=== PATIENT | female | born 1960 | race African-American/Black ===

== ENCOUNTER 2017-02-04 11:07 | Inpatient (IN) | payer OTHER ==
--- NOTE | 2017-02-04 11:48 | PDOC ---
History of Present Illness - General Chief Complaint: Revisit,Radiology Variance Stated Complaint: EVALUATION, SOB (PCP SENT) Time Seen by Provider: 02/04/17 11:37 History Source: Patient Exam Limitations: No Limitations - History of Present Illness Initial Comments: 02/04/17 11:57 This is a 56-year-old female with past medical history of HIV positive, ESRD on dialysis Wednesday was Wednesday who presents to the emergency department with productive cough 4 days with one episode of posttussive vomiting. Patient states she started coughing on Wednesday, February 01 which has been productive with white sputum. She states symptoms have not improved and is convinced to seek out care of her primary doctor by her girlfriend. Patient denies any fevers but reports feeling "chilly" presently. Patient was evaluated by Dr. Sanchez earlier today with a chest x-ray positive for right middle and lower lobe pneumonia. She denies headaches, sore throat, earaches, chest pain, abdominal pain. Patient's last dialysis was yesterday and does not make any urine. PMD: Daniel PMH: HIV positive, ESRD on HD MWF PSH: Denies NKDA Tobacco: Quit 4 years ago [id number]. EtOH: Denies Illicits: Remote crack cocaine use Patient denies any travel outside [place] [facility] states or contacted and was travel outside the [place] within the past 30 days. Past History - Past Medical History Allergies/Adverse Reactions: Allergies Allergy/AdvReac Type Severity Reaction Status Date / Time No Known Drug Allergies Allergy Verified 02/04/17 11:19 Home Medications: Ambulatory Orders Methadone [Dolophine -] 80 mg PO DAILY 06/18/15 Sevelamer Carbonate [Renvela -] 800 mg PO TIDCM 06/18/15 Lopinavir/Ritonavir [Kaletra 200-50 mg Tablet] 2 each PO BID #120 tablet Abacavir Sulfate [Ziagen -] 300 mg PO BID #60 tablet 01/14/17 Losartan Potassium 50 mg PO DAILY #30 tablet 01/14/17 Raltegravir [Isentress] 400 mg PO BID #60 tab 01/14/17 Diltiazem HCl [Diltiazem 24Hr Cd] 120 mg PO DAILY #30 cap.er.24h 01/15/17 Oxycodone HCl/Acetaminophen [Percocet 10-325 mg Tablet] 1 each PO BID PRN #60 tablet MDD 2 01/18/17 Aripiprazole 2 mg PO AM #30 tablet 01/28/17 Clonazepam [Klonopin -] 0.5 mg PO HS PRN #30 tab MDD 1 01/28/17 Zolpidem Tartrate [Ambien] 5 mg PO HS #30 tablet MDD 1 01/28/17 Anemia: No Asthma: No Cancer: Yes (ANAL WARTS/EARLY CANCER-treated) Cardiac Disorders: No CVA: No COPD: No CHF: No Dementia: No Diabetes: No Dialysis: Yes (M-W-F) GI Disorders: No Disorders: No HTN: Yes Hypercholesterolemia: Yes Liver Disease: Yes (Hep C past 6 yrs - untreated) Psychiatric Problems: Yes (Anxiety) Seizures: No Thyroid Disease: No - Surgical History Abdominal Surgery: No Appendectomy: No Cardiac Surgery: No Cholecystectomy: No Lung Surgery: No Neurologic Surgery: No Orthopedic Surgery: No - Suicide/Smoking/Psychosocial Hx Smoking Status: Yes Smoking History: Former smoker Have you smoked in the past 12 months: No Number of Cigarettes Smoked Daily: 2,013 If you are a former smoker, when did you quit?: 2013 Cigars Per Day: 0 Information on smoking cessation initiated: No 'Breaking Loose' booklet given: 06/19/13 Hx Alcohol Use: No Drug/Substance Use Hx: Yes Substance Use Type: Cocaine, Heroin Hx Substance Use Treatment: Yes (hx detox, rehab, now [facility]) Respiratory Specific PMHX - Complaint Specific PMHX Pneumonia: No TB (Tuberculosis): No Review of Systems - Review of Systems Able to Perform ROS?: Yes Is the patient limited Ethiopian proficient: No Constitutional: Yes: See HPI HEENTM: No: Symptoms Reported Respiratory: Yes: See HPI Cardiac (ROS): No: Symptoms Reported ABD/GI: No: Symptoms Reported : No: Symptoms Reported Musculoskeletal: No: Symptoms Reported Integumentary: No: Symptoms Reported Neurological: No: Symptoms reported *Physical Exam - Vital Signs Last Vital Signs Temp Pulse Resp BP Pulse Ox 99.6 F 60 18 128/68 94 L 02/04/17 11:19 02/04/17 11:19 02/04/17 11:36 02/04/17 11:19 02/04/17 11:36 - Physical Exam General Appearance: Yes: Appropriately Dressed. No: Apparent Distress HEENT: positive: EOMI, ZAHRA, Normal ENT Inspection Neck: positive: Trachea midline, Supple. negative: Tender Respiratory/Chest: positive: Decreased Breath Sounds (right base). negative: Chest Tender, Respiratory Distress, Accessory Muscle Use, Crackles, Rales, Rhonchi, Wheezing Cardiovascular: positive: Regular Rhythm, Regular Rate, S1, S2. negative: Edema , JVD, Murmur Gastrointestinal/Abdominal: positive: Normal Bowel Sounds, Soft. negative: Tender Musculoskeletal: positive: Normal Inspection. negative: CVA Tenderness Extremity: positive: Normal Capillary Refill, Normal Inspection, Normal Range of Motion, Other (A-V fistula in LUE. (+)bruit, (+) thrill) Integumentary: positive: Normal Color, Dry, Warm Neurologic: positive: mdm developer II-XII NML intact, Fully Oriented, Alert, Normal Mood/ Affect, Normal Response, Motor Strength 5/5 Heart Score/ECG Review - ECG Intrepretation Rhythm: Regular Rhythm - ECG Impressions Normal ECG: Yes ED Treatment Course - LABORATORY CBC & Chemistry Diagram: 02/04/17 12:00 02/04/17 12:39 Medical Decision Making - Medical Decision Making 02/04/17 12:04 A/P: 56-year-old female HIV positive reports compliance with her medications, ESRD on HD sent by her primary doctor for right lower and middle lobe pneumonia. Lung sounds diminished on the right side. Respirations even and unlabored. Patient with O2 sat of 94% on room air upon arrival. RRR. No murmur, rub or gallop. Normoactive bowel sounds. Abdomen soft nontender nondistended. Diagnosis- right middle and lower lobe pneumonia Dr. Sanchez has contacted the emergency Department and requests admission to hospitalist. I will collect a CBC, CMP, blood cultures, sputum culture. I will give the patient 3.375 g of Zosyn IV and 500 mg of Zithromax IV. I'll put the patient on oxygen at 2 L via nasal cannula. Once testing returns I will admit the patient to hospitalist per request of primary doctor. EXAM#: TYPE/EXAM: RESULT: [id number] RAD/CHEST PA LAT History of cough Chest x- ray, PA and lateral Since 11/15/2015, the cardiac silhouette remains slightly to moderately enlarged. Interval interstitial and patchy airspace disease in the right lower anterolisthesis extent right midlung consistent with pneumonia. The left lung is clear. No pneumothorax or pleural effusion are identified. Visualized osseous structures appear intact IMPRESSION: Pneumonic infiltrates in the right lower atelectatic central right midlung. Follow-up is needed. Reported By: Zackary Paul MD 02/04/17 1031 02/04/17 13:44 Labs show hyponatremia-129, hyperkalemia 5.3, creatinine of 9, BUN of 46, WBC of 18.6. Will admit the patient to hospitalist to follow with Dr. Sanchez ID. 02/04/17 13:56 I have discussed the case with Cyndi Brown who accepted the patient for admission to hospitalist service *DC/Admit/Observation/Transfer Diagnosis at time of Disposition: Pneumonia Qualifiers: Pneumonia type: due to unspecified organism Laterality: right Lung location: lower lobe of lung Qualified Code(s): J18.1 - Lobar pneumonia, unspecified organism - Discharge Dispostion Condition at time of disposition: Guarded Admit: Yes - Referrals Referrals: Amaris Ruth [Primary Care Provider] - - Patient Instructions - Post Discharge Activity
[2017-02-04] MEDS ORDERED: ACETAMINOPHEN 325 MG TABLET (FP) PO ONE (11:49)
[2017-02-04] MEDS ORDERED: AZITHROMYCIN IVPB 500 MG in DEXTROSE 5%-WATER - 250 ML IVPB ONE (11:51)
[2017-02-04] MEDS ORDERED: PIPERACILLIN/TAZOB 3.375 GM/50 ML PRE-DOCKED IVPB ONE (12:00)
[2017-02-04] MEDS ORDERED: ACETAMINOPHEN 325 MG TABLET (FP) ONE (12:06)
[2017-02-04] MEDS ORDERED: PIPERACILLIN/TAZOB 3.375 GM 3.375 GM/50 ML BAG IVPB ONE (12:06)
[2017-02-04] MEDS ORDERED: AZITHROMYCIN IVPB 250 ML IVPB ONE (12:06)
[2017-02-04 12:42] LABS: MCHC 31.6 g/dl (32.0-36.0); MEAN CELL VOLUME 101.2 fl (80-96); MEAN PLT VOLUME 7.4 fl (7.5-11.1); PLATELET COUNT 171 K/MM3 (134-434); RDW 15.5 % (11.6-15.6); WHITE BLOOD COUNT 18.6 K/mm3 (4.0-10.0)
[2017-02-04 13:20] LABS: ANION GAP 16 (8-16); BILIRUBIN,TOTAL 3.1 mg/dL (0.2-1.0); CALCIUM 9.1 mg/dL (8.5-10.1); CO2 19 mmol/L (21-32); GLUCOSE,RANDOM 60 mg/dL (74-106); SGPT/ALT 14 U/L (12-78); TOT PROT 7.9 g/dl (6.4-8.2)
[2017-02-04 13:26] LABS: ALBUMIN 2.8 g/dl (3.4-5.0); ALK PHOS 96 U/L (45-117)
[2017-02-04 13:28] LABS: SGOT/AST 36 U/L (15-37)
[2017-02-04 14:18] LABS: TOTAL CELLS COUNTED 100
[2017-02-04 14:19] LABS: METAMYELOCYTE 2 % (0-2); PLATELET ESTIMATE ADEQUATE
--- NOTE | 2017-02-04 14:28 | HP ---
HISTORY OF PRESENT ILLNESS: Patient is a 56 year old female with a PMHx of HIV, Hepatitis C, ESRD on dialysis (M,W,F), HTN, substance abuse (Methadone) who was sent over by her PCP , Dr. Sanchez, for pneumonia finding on chest x-ray done today. Patient reports having a productive cough with yellow phlegm for the last four days associated with chills and fatigue. She reports her symptoms were worsening and she was finally convinced by her girlfriend to seek medical attention. When she went to her PCP a chest x-ray was done which revealed a right mid and lower lobe pneumonia. Patient also reports to having pain under her right breast that is worsened when she coughs and relates it to her constant coughing for the last four days. Otherwise, pateint denies any sore throat, chest pain, palpitations, shortness of breath, headaches, diarrhea, constipation, abdominal pain. Patients last CD4 count 338 on 08/27/16 and Viral load <20. PHYSICAL EXAMINATION Vital Signs - 24 hr 02/04/17 02/04/17 11:19 11:36 Temperature 99.6 F Pulse Rate 60 Respiratory 18 18 Rate Blood Pressure 128/68 O2 Sat by Pulse 94 L 94 L Oximetry (%) GENERAL: Awake, alert, and fully oriented, in no acute distress. EYES: Pupils equal, round and reactive to light, extraocular movements intact, sclera icterus EARS, NOSE, THROAT: Oropharynx clear without exudates. Moist mucous membranes. LUNGS: Rales throughout lung bases bilaterally with crackles in right lower lobe. HEART: Regular rate and rhythm, normal S1 and S2 without murmur, rub or gallop. ABDOMEN: Soft, mild tenderness upon palpation of right upper and right lateral chest, not distended, normoactive bowel sounds, no guarding, no rebound, no masses. (-) barkley's sign UPPER EXTREMITIES: Left AV Fistula with palpable thrill, (+) bruit LOWER EXTREMITIES: No peripheral edema. NEUROLOGICAL: Motor strength 5/5 bilaterally with sensory intact throughout. No facial droop. CN II-XII intact Laboratory Results - last 24 hr 02/04/17 02/04/17 02/04/17 12:00 12:39 12:39 WBC 18.6 H D RBC 3.41 L Hgb 10.9 Hct 34.5 MCV 101.2 H MCH 32.0 MCHC 31.6 L RDW 15.5 Plt Count 171 D MPV 7.4 L D Total Counted 100 Neutrophils % No Result Required. Neutrophils % (Manual) 64.0 D Lymphocytes % No Result Required. Lymphocytes % (Manual) 13.0 D Monocytes % (Manual) 20 H* D Eosinophils % (Manual) 1.0 Metamyelocytes 2 Platelet Estimate Adequate Sodium 129 L Potassium 5.3 H Chloride 94 L Carbon Dioxide 19 L D Anion Gap 16 BUN 46 H D Creatinine 9.0 H* Creat Clearance w eGFR 4.54 Random Glucose 60 L D Lactic Acid 0.9 Calcium 9.1 Total Bilirubin 3.1 H D AST 36 ALT 14 D Alkaline Phosphatase 96 D Total Protein 7.9 Albumin 2.8 L D IMAGES: Chest X-Ray (02/04/17): Since 11/15/2015, the cardiac silhouette remains slightly to moderately enlarged. Interval interstitial and patchy airspace disease in the right lower anterolisthesis extent right midlung consistent with pneumonia. The left lung is clear. No pneumothorax or pleural effusion are identified. Visualized osseous structures appear intact ASSESSMENT/PLAN: Patient is a 56 year old HIV positive female who was sent over by her PCP for a 4 day history of productive cough and a chest x-ray that revealed Pneumonia. Patient admitted for further monitoring and management. Health Care Acquired Pneumonia -WBC 18.6 with 02 saturation <95% -IV Zosyn and Azithromycin given in ED -Will continue to Zosyn and Vancomycin -Urine legionella ordered -Blood and sputum cultures ordered -Tylenol PRN for fevers -2L O2 NC -ID consult placed Hyponatremia -IV NS @75mlshr -Will continue to monitor BMP HyperKalemia -Secondary to ESRD -Will go for dialysis tomorrow -Will give albuterol, Insulin and D5 -Continue to monitor BMP HIV Positive-Controlled -Follows with [facility] -Currently on kaletra -Ladt CD4 was 338 on 08/27/16 and Viral load <20. -ID consult placed Chronic Hepatitis C -Follows up Dr. Moore. -Will confirm if on any medications Methadone Dependence -On a method Regimen but will confirm the dose and how many times HTN-Controlled -Continue Diltiazem 120mg daily -Continue to monitor BP ESRD on HD -Patient reports being Anuric -Follows with Dr. Bales -Last dialysis yesterday (02/03/17) -Will likely require dialysis tomorrow inpatient -Nephrology consult placed F/E/N -IV NS @75mls/hr -Hyponatremia/Hypokalemia -Sodium controlled diet Prophylaxis -Moderate risk. EAM. Heparin SQ for DVT. Unable to give Lovenox due to creatinine clearance -No GI required Disposition -Full code -Will need inpatient IV abx for pneumonia. Will likely remain overnight for inpatient Visit type - Emergency Visit Emergency Visit: Yes ED Registration Date: 02/04/17 Care time: The patient presented to the Emergency Department on the above date and was hospitalized for further evaluation of their emergent condition. - New Patient This patient is new to me today: Yes Date on this admission: 02/04/17 - Critical Care Critical Care patient: No
[2017-02-04] MEDS ORDERED: ACETAMINOPHEN 325 MG TABLET (FP) PO PRN (14:31)
[2017-02-04] MEDS ORDERED: SODIUM CHLORIDE 1,000 ML IV SCH (14:45)
--- NOTE | 2017-02-04 16:25 | HP ---
CHIEF COMPLAINT: productive cough PCP: Dr. Sanchez GI: Dr. Moore Renal: Dr. Laguerre HISTORY OF PRESENT ILLNESS: 56yo F with PMH of HIV (CD4 338 and Viral Load <20 on 08/27/16), ESRD (HD on MWF) , Hep C (untreated), presents c/o cough productive of white sputum x 4 days. PCP (Dr. Sanchez) did a CXR which revealed Right middle and lower lung pneumonia, prompting pt to come to the ER. Pt reports 1 episode of nbnb posttussive vomiting. Pt reports 1 episode of hematochezia on Wednesday, attributed to straining while making a bowel movement. Pt denies hx of hematochezia, significant wt loss, sick contacts. ER course was notable for: (1) 1 dose Azithromycin and 1 dose Zosyn given (2) cbc reveals WBC 18.6 (3) cmp reveals abnormal electrolytes, hypoglycemia, and elevated BUN/Cr (at pt' s baseline). Recent Travel: denies PAST MEDICAL HISTORY: ESRD with HD on MWF, last HD yesterday HIV Hep C - untreated htn hld anxiety anal warts (early cancer - treated) PAST SURGICAL HISTORY: denies Social History: Smoking: quit 4 yrs ago, 9 pack yr hx Alcohol: denies Drugs: remote hx of crack cocaine and heroin Family History: sister - ESRD on HD Allergies No Known Drug Allergies Allergy (Verified 02/04/17 11:19) HOME MEDICATIONS: Home Medications Medication Instructions Recorded Methadone [Dolophine -] 80 mg PO DAILY 06/18/15 Sevelamer Carbonate [Renvela -] 800 mg PO TIDCM 06/18/15 Lopinavir/Ritonavir [Kaletra 2 each PO BID #120 tablet 12/02/15 200-50 mg Tablet] Abacavir Sulfate [Ziagen -] 300 mg PO BID #60 tablet 01/14/17 Losartan Potassium 50 mg PO DAILY #30 tablet 01/14/17 Raltegravir [Isentress] 400 mg PO BID #60 tab 01/14/17 Diltiazem HCl [Diltiazem 24Hr Cd] 120 mg PO DAILY #30 cap.er.24h 01/15/17 Oxycodone HCl/Acetaminophen 1 each PO BID PRN #60 tablet MDD 2 01/18/17 [Percocet 10-325 mg Tablet] Aripiprazole 2 mg PO AM #30 tablet 01/28/17 Clonazepam [Klonopin -] 0.5 mg PO HS PRN #30 tab MDD 1 01/28/17 Zolpidem Tartrate [Ambien] 5 mg PO HS #30 tablet MDD 1 01/28/17 REVIEW OF SYSTEMS CONSTITUTIONAL: Absent: fever, chills, diaphoresis, generalized weakness, malaise, weight change HEENT: Absent: rhinorrhea, nasal congestion, throat pain, visual changes CARDIOVASCULAR: Absent: chest pain, palpitations, irregular heart rate, peripheral edema RESPIRATORY: cough Absent: shortness of breath, wheezing, stridor, hemoptysis GASTROINTESTINAL: hematochezia Absent: abdominal pain, abdominal distension, nausea, vomiting, diarrhea, constipation, melena GENITOURINARY: anuric Absent: dysuria, hematuria SKIN: Absent: rash, itching, pallor HEMATOLOGIC/IMMUNOLOGIC: easy bleeding 2/2 Heparin given at HD Absent: easy bruising ENDOCRINE: Absent: unexplained weight gain, unexplained weight loss, heat intolerance, cold intolerance NEUROLOGIC: Absent: headache, focal weakness or paresthesias PHYSICAL EXAMINATION Vital Signs - 24 hr 02/04/17 02/04/17 11:19 11:36 Temperature 99.6 F Pulse Rate 60 Respiratory 18 18 Rate Blood Pressure 128/68 O2 Sat by Pulse 94 L 94 L Oximetry (%) GENERAL: Awake, alert, and fully oriented, in no acute distress. HEAD: Normal with no signs of trauma. EYES: Pupils equal, round and reactive to light, extraocular movements intact, sclera anicteric, conjunctiva clear. No lid lag. EARS, NOSE, THROAT: Oropharynx without exudates. Moist mucous membranes. NECK: Normal range of motion, supple. LUNGS: Bibasilar crackles appreciated. No accessory muscle use. HEART: Regular rate and rhythm, normal S1 and S2 without murmur, rub or gallop. ABDOMEN: Soft, nontender, not distended, normoactive bowel sounds, no guarding, no rebound, no masses. UPPER EXTREMITIES: Warm, well-perfused. No cyanosis. No clubbing. No peripheral edema. Left fistula, normal sounding bruit with palpable thrill. LOWER EXTREMITIES: Warm, well-perfused. No calf tenderness. No peripheral edema. NEUROLOGICAL: Cranial nerves II-XII grossly intact. Normal speech. Muscle strength 5/5 throughout (refugio LE hip flexion, plantar flexion/extension, refugio UE elbow flexion/extension). 1+ biceps jerk, 0+ knee jerk appreciated. Sensation intact throughout. No facial droop. PSYCHIATRIC: Cooperative. Good eye contact. Appropriate mood and affect. SKIN: Warm, dry, normal turgor, no rashes or lesions noted, normal capillary refill. Laboratory Results - last 24 hr 02/04/17 02/04/17 02/04/17 12:00 12:39 12:39 WBC 18.6 H D RBC 3.41 L Hgb 10.9 Hct 34.5 MCV 101.2 H MCH 32.0 MCHC 31.6 L RDW 15.5 Plt Count 171 D MPV 7.4 L D Total Counted 100 Neutrophils % No Result Required. Neutrophils % (Manual) 64.0 D Lymphocytes % No Result Required. Lymphocytes % (Manual) 13.0 D Monocytes % (Manual) 20 H* D Eosinophils % (Manual) 1.0 Metamyelocytes 2 Platelet Estimate Adequate Sodium 129 L Potassium 5.3 H Chloride 94 L Carbon Dioxide 19 L D Anion Gap 16 BUN 46 H D Creatinine 9.0 H* Creat Clearance w eGFR 4.54 Random Glucose 60 L D Lactic Acid 0.9 Calcium 9.1 Total Bilirubin 3.1 H D AST 36 ALT 14 D Alkaline Phosphatase 96 D Total Protein 7.9 Albumin 2.8 L D ASSESSMENT/PLAN: 56yo F with PMH of HIV (CD4 338 and Viral Load <20 on 08/27/16), ESRD (HD on MWF) , Hep C (untreated), presents c/o cough productive of white sputum x 4 days, admitted for HealthCare Acquired Pneumonia. # HCAP - Vancomycin 1g IVPB q8hr and Zosyn 4.5g IVPB q6hr - ID Consult with pt's PCP (Dr. Sanchez) - f/u blood and sputum cultures - f/u urine Legionella - Tylenol prn for fever or pain - supplemental O2 prn # ESRD - Nephrology Consult with pt's Nephrology group (Dr. Cheung) - baseline Cr 8-10 per EMR - continue hemodialysis MWF - continue Renvela # htn - continue home meds of Losartan and Diltiazem (recently dose reduced to 120mg daily from 180mg daily per pharmacy) # HIV - continue home meds of Kaletra and Raltegravir - follows at [facility] # Hep C - GI is Dr. Moore - f/u as outpatient # polysubstance abuse - continue home med of Methadone # anxiety - continue home meds of Klonipin and Aripiprazole # borderline hypoglycemia - pt denies hx of DM - continue to monitor # electrolyte abnormalities - hyperkalemia likely 2/2 ESRD - for hyponatremia continue NS - f/u bmp # FEN - Fluids: NS @ 75 ml/hr - Electrolytes: hyponatremia and hyperkalemia noted, continue to monitor - Nutrition: renal diet # DVT Prophylaxis - Heparin 5,000U SQ TID Visit type - Emergency Visit Emergency Visit: Yes ED Registration Date: 02/04/17 Care time: The patient presented to the Emergency Department on the above date and was hospitalized for further evaluation of their emergent condition. - New Patient This patient is new to me today: Yes Date on this admission: 02/04/17 - Critical Care Critical Care patient: No
--- NOTE | 2017-02-04 16:25 | PN ---
Teaching Attending Note Name of Resident: Angelina Jolly ATTENDING PHYSICIAN STATEMENT I saw and evaluated the patient. I reviewed the resident's note and discussed the case with the resident. I agree with the resident's findings and plan as documented. SUBJECTIVE: OBJECTIVE: Vital Signs Period Temp Pulse Resp BP Sys/Curry Pulse Ox Last 24 Hr 99.6 F 60 18-18 128/68 94-94 Home Medications Medication Instructions Recorded Methadone [Dolophine -] 80 mg PO DAILY 06/18/15 Sevelamer Carbonate [Renvela -] 800 mg PO TIDCM 06/18/15 Lopinavir/Ritonavir [Kaletra 2 each PO BID #120 tablet 12/02/15 200-50 mg Tablet] Abacavir Sulfate [Ziagen -] 300 mg PO BID #60 tablet 01/14/17 Losartan Potassium 50 mg PO DAILY #30 tablet 01/14/17 Raltegravir [Isentress] 400 mg PO BID #60 tab 01/14/17 Diltiazem HCl [Diltiazem 24Hr Cd] 120 mg PO DAILY #30 cap.er.24h 01/15/17 Oxycodone HCl/Acetaminophen 1 each PO BID PRN #60 tablet MDD 2 01/18/17 [Percocet 10-325 mg Tablet] Aripiprazole 2 mg PO AM #30 tablet 01/28/17 Clonazepam [Klonopin -] 0.5 mg PO HS PRN #30 tab MDD 1 01/28/17 Zolpidem Tartrate [Ambien] 5 mg PO HS #30 tablet MDD 1 01/28/17 Laboratory Tests 02/04/17 02/04/17 02/04/17 12:00 12:39 12:39 WBC 18.6 H D RBC 3.41 L Hgb 10.9 Hct 34.5 MCV 101.2 H MCH 32.0 MCHC 31.6 L RDW 15.5 Plt Count 171 D MPV 7.4 L D Total Counted 100 Neutrophils % No Result Required. Neutrophils % (Manual) 64.0 D Lymphocytes % No Result Required. Lymphocytes % (Manual) 13.0 D Monocytes % (Manual) 20 H* D Eosinophils % (Manual) 1.0 Metamyelocytes 2 Platelet Estimate Adequate Sodium 129 L Potassium 5.3 H Chloride 94 L Carbon Dioxide 19 L D Anion Gap 16 BUN 46 H D Creatinine 9.0 H* Creat Clearance w eGFR 4.54 Random Glucose 60 L D Lactic Acid 0.9 Calcium 9.1 Total Bilirubin 3.1 H D AST 36 ALT 14 D Alkaline Phosphatase 96 D Total Protein 7.9 Albumin 2.8 L D ASSESSMENT AND PLAN:
[2017-02-04 16:35] VITALS: BMI 28.3
[2017-02-04] MEDS ORDERED: clonazePAM 0.5 MG TABLET PO PRN (17:52)
[2017-02-04] MEDS ORDERED: HEPARIN NA (PORCINE) 5,000 UNITS/ML 1ML VIAL SQ SCH (18:00)
[2017-02-04] MEDS ORDERED: VANCOMYCIN 1,000 MG in DEXTROSE 5%-WATER - 250 ML IVPB ONE (18:30)
[2017-02-04] MEDS ORDERED: PIPERACILLIN/TAZOB 4.5 GM 4.5 GM in DEXTROSE 5%-WATER - 100 ML IVPB ONE (18:45)
[2017-02-04] MEDS ORDERED: cefTRIAXone 1 GM/50 ML BAG (PRE-DOCKED) IVPB SCH (19:00)
--- NOTE | 2017-02-04 20:08 | CONS ---
DATE OF CONSULTATION: 02/04/2017 This is a 56-year-old woman, who I follow at the [facility]. I saw her today when she presented for a sick visit. She has a history of well-controlled HIV and end-stage renal disease, on dialysis Wednesday, Wednesday, Wednesday. Since Wednesday, she has not been feeling well, she has had a cough, she has had several episodes of vomiting in the morning, nonbloody, not associated with any abdominal pain. She reports white sputum production. She is here with her significant other, who notes that she has not been herself, she has been very weak and tired. She denies any chest pain. She denies any fever. She has no abdominal pain. She had a normal bowel movement today. In the clinic, on examination, I noted that she had right lower lobe crackles. She was noted to be hypoxic with a pulse oximeter of 90%. She was sent for a chest x-ray and noted to have a right lower lobe and right middle lobe infiltrate. Admission was advised due to her pneumonia and hypoxia, and she went to the emergency room. Her medications include methadone, Renvela, Kaletra, abacavir, losartan, Isentress, diltiazem, Percocet, aripiprazole/clozapine, and Ambien. SOCIAL HISTORY: She is a former smoker. She quit many years ago. There is no history of alcohol use. She is a former substance user, now on methadone. She lives with her significant other. She has not had any sick contacts. There is no history of any travel. PHYSICAL EXAMINATION: General: When I saw her at the [facility], she was awake and alert. She was tired appearing and she had a moist cough. Vital Signs: Temperature was 99.5, pulse was 59, blood pressure 140/83, respiratory rate was 16. HEENT: Normocephalic. Eyes are anicteric. Lungs: Notable for crackles at the right base. Left lung was clear. Heart: Regular rate and rhythm. Abdomen: Soft, nontender. Extremities: Without edema. AV fistula was without erythema and had a good thrill. Her labs were not sent as she was sent to the emergency room. Chest x-ray was notable for a right lower lobe and possible right middle lobe infiltrate. After arrival in the emergency room, her labs are notable for a white count of 18.6, hemoglobin 10.9, platelets of 171. BUN 46, creatinine 9. Cultures have been sent. Sputum culture is pending. In the emergency room, she was given a dose of Zosyn and Zithromax by the emergency room physician, as well as a dose of vancomycin by the admitting service. In summary, this is a 56-year-old woman, on dialysis, with HIV, with presentation of: 1. Acute pneumonia consistent with community-acquired pneumonia. I would continue her on Rocephin and Zithromax. 2. End-stage renal disease. She is followed by Dr. Albert's group and gets dialyzed Wednesday, Wednesday, Wednesday. 3. Hypertension. Would continue current medications. 4. Human immunodeficiency virus: She is on Kaletra, Isentress, and Ziagen, and well controlled, with T cells of 338 and undetectable viral load. 5. She has a history of hepatitis C, which she has not started treatment for. 6. As well, she has a history of anal warts, for which she has had excision and has refused followup with Oncology and Radiation. 7. She has a history of anxiety, for which she is followed by Psychiatry. I would agree with cultures, Legionella, urinary antigen. Would treat her with ceftriaxone and Zithromax at this time, with further recommendations to follow based on her clinical course. MARIAA PEREZ M.D. RUDDY/[id number]
[2017-02-04 20:25] LABS: ANION GAP 13 (8-16); CALCIUM 8.9 mg/dL (8.5-10.1); CO2 22 mmol/L (21-32); GLUCOSE,RANDOM 79 mg/dL (74-106)
[2017-02-04 20:56] LABS: CREATININE 9.3 mg/dL (0.55-1.02)
[2017-02-04] MEDS ORDERED: PIPERACILLIN/TAZOB 4.5 GM 4.5 GM/100 ML BAG IVPB SCH (21:00)
[2017-02-04] MEDS ORDERED: PT OWN MED DRAWER 7, Y5N ONE (21:35)
[2017-02-04] MEDS: CEFTRIAXONE 1 G/50 ML PREMIX 50 ML IVPB SCH (21:46)
[2017-02-04] MEDS ORDERED: VANCOMYCIN 1,000 MG in DEXTROSE 5%-WATER - 250 ML IVPB SCH (22:00)
[2017-02-04] MEDS: BACLOFEN 10 MG TABLET (FP) PO SCH (23:24)
[2017-02-04] MEDS: ZOLPIDEM TARTRATE 5 MG TABLET PO PRN (23:24)
[2017-02-04] MEDS: RITONAVIR/LOPINAVIR 50MG/200MG 1 COMBO TABLET PO SCH (23:25)
[2017-02-04] MEDS: RALTEGRAVIR POTASSIUM 400 MG TAB PO SCH (23:25)
[2017-02-04] MEDS: ABACAVIR SULFATE 300 MG TABLET PO SCH (23:26)
[2017-02-04] MEDS: HEPARIN NA (PORCINE) 5,000 UNITS/ML 1ML VIAL SQ SCH (23:27)
[2017-02-05] MEDS ORDERED: PT OWN MED DRAWER 7, Y5N ONE ×3 (05:39→10:00)
[2017-02-05] MEDS: BACLOFEN 10 MG TABLET (FP) PO SCH ×3 (05:44→22:44)
[2017-02-05] MEDS: HEPARIN NA (PORCINE) 5,000 UNITS/ML 1ML VIAL SQ SCH ×3 (05:45→22:46)
[2017-02-05] MEDS: ARIPiprazole 2 MG TABLET PO SCH (06:24)
[2017-02-05 08:07] LABS: MCH 31.9 pg (25.7-33.7); MCHC 31.7 g/dl (32.0-36.0); MEAN CELL VOLUME 100.7 fl (80-96); MEAN PLT VOLUME 7.4 fl (7.5-11.1); PLATELET COUNT 166 K/MM3 (134-434); RDW 15.7 % (11.6-15.6); WHITE BLOOD COUNT 17.3 K/mm3 (4.0-10.0)
[2017-02-05 08:53] LABS: ANION GAP 17 (8-16); CALCIUM 9.2 mg/dL (8.5-10.1); CO2 17 mmol/L (21-32); GLUCOSE,RANDOM 65 mg/dL (74-106); MAGNESIUM 2.3 mg/dL (1.8-2.4); PHOSPHOROUS 4.7 mg/dL (2.5-4.9)
[2017-02-05] MEDS: SEVELAMER CARBONATE 800 MG TAB (FP) PO SCH ×3 (09:36→18:13)
[2017-02-05] MEDS: LOSARTAN POTASSIUM 50 MG TABLET (FP) PO SCH (09:36)
[2017-02-05 09:37] LABS: TOTAL CELLS COUNTED 100
[2017-02-05] MEDS: CEFTRIAXONE 1 G/50 ML PREMIX 50 ML IVPB SCH (09:37)
[2017-02-05 09:38] LABS: MYELOCYTE 1 % (0-2)
[2017-02-05] MEDS: CINACALCET HCL 30 MG TAB (FP) PO SCH (09:41)
[2017-02-05] MEDS: ABACAVIR SULFATE 300 MG TABLET PO SCH ×2 (09:41→23:35)
[2017-02-05] MEDS: RITONAVIR/LOPINAVIR 50MG/200MG 1 COMBO TABLET PO SCH ×2 (09:41→22:44)
[2017-02-05] MEDS: RALTEGRAVIR POTASSIUM 400 MG TAB PO SCH ×2 (09:42→22:44)
[2017-02-05 09:47] LABS: CREATININE 10.6 mg/dL (0.55-1.02)
[2017-02-05] MEDS: oxyCODONE HCL 5 MG TABLET PO PRN (09:48)
--- NOTE | 2017-02-05 10:06 | EKG ---
Test Reason : Blood Pressure : / mmHG Vent. Rate : 063 BPM Atrial Rate : 063 BPM P-R Int : 198 ms QRS Dur : 100 ms QT Int : 384 ms P-R-T Axes : -05 036 031 degrees QTc Int : 392 ms NORMAL SINUS RHYTHM WITH SINUS ARRHYTHMIA POSSIBLE INFERIOR INFARCT , AGE UNDETERMINED ABNORMAL ECG Confirmed by LU MCGOWAN MD ([id number]) on 02/05/2017 10:06:25 AM Referred By: Confirmed By:LU MCGOWAN MD
[2017-02-05] MEDS: METHADONE HCL 40 MG DISPERSABLE TABLET PO SCH (11:05)
[2017-02-05] MEDS: AZITHROMYCIN 250 MG TABLET PO SCH (12:56)
[2017-02-05] MEDS ORDERED: EPOETIN ALFA 2,000 UNITS/1 ML VIAL IVPUSH ONE (13:15)
--- NOTE | 2017-02-05 13:47 | PN ---
Progress Note (short form) - Note Progress Note: seen on HD alert no complaints oriented to person, place and time nurse reports confusion earlier?- appears resolved Vital Signs Period Temp Pulse Resp BP Sys/Curry Pulse Ox Last 24 Hr 97.8 F-99.2 F 60-64 18-18 132-142/77-82 96-96 cor-rrr lungs decreased bs at bases abd soft,nt ext no edema CBC, BMP 02/05/17 06:00 02/05/17 06:00 Microbiology 02/04/17 12:13 Blood - Peripheral Venous Blood Culture - Preliminary NO GROWTH OBTAINED AFTER 24 HOURS, INCUBATION TO CONTINUE FOR 4 DAYS. 02/04/17 12:00 Blood - Peripheral Venous Blood Culture - Preliminary NO GROWTH OBTAINED AFTER 24 HOURS, INCUBATION TO CONTINUE FOR 4 DAYS. 02/04/17 13:05 Sputum - Expectorated Sputum Culture - Preliminary NORMAL RESPIRATORY ARNALDO Current Medications Abacavir Sulfate (Ziagen -) 300 mg PO BID [facility] Last Admin: 02/05/17 09:41 Dose: 300 mg Acetaminophen (Tylenol -) 650 mg PO Q4H PRN PRN Reason: FEVER OR PAIN Acetaminophen (Tylenol -) 325 mg PO BID PRN Aripiprazole (Abilify) 2 mg PO AM [facility] Last Admin: 02/05/17 06:24 Dose: 2 mg Azithromycin (Zithromax -) 250 mg PO DAILY [facility] Last Admin: 02/05/17 12:56 Dose: 250 mg Baclofen (Lioresal -) 10 mg PO TID [facility] Last Admin: 02/05/17 05:44 Dose: 10 mg Cinacalcet (Sensipar -) 30 mg PO DAILY [facility] Last Admin: 02/05/17 09:41 Dose: 30 mg Clonazepam (Klonopin -) 0.5 mg PO HS PRN PRN Reason: ANXIETY Diltiazem HCl (Cardizem Cd -) 120 mg PO DAILY [facility] Last Admin: 02/05/17 09:36 Dose: 120 mg Heparin Sodium (Porcine) (Heparin -) 5,000 unit SQ TID [facility] Last Admin: 02/05/17 05:45 Dose: Not Given CEFTRIAXONE 1 G/50 ML PREMIX (Ceftriaxone 1 Gm-D5w Bag) 50 mls @ 100 mls/hr IVPB DAILY [facility] Last Admin: 02/05/17 09:37 Dose: 100 mls/hr Vancomycin HCl 1,000 mg/ (Dextrose) 250 mls @ 250 mls/hr IVPB ONCE ONE PRN Reason: Protocol Stop: 02/05/17 09:47 Lopinavir/Ritonavir (Kaletra 200mg/50mg -) 2 tablet PO BID [facility] Last Admin: 02/05/17 09:41 Dose: 2 tablet Losartan Potassium (Cozaar -) 50 mg PO DAILY [facility] Last Admin: 02/05/17 09:36 Dose: 50 mg Methadone HCl (Dolophine -) 80 mg PO DAILY@0600 [facility] Last Admin: 02/05/17 11:05 Dose: 80 mg Oxycodone HCl (Roxicodone -) 10 mg PO BID PRN Last Admin: 02/05/17 09:48 Dose: 10 mg Raltegravir (Isentress -) 400 mg PO BID [facility] Last Admin: 02/05/17 09:42 Dose: 400 mg Sevelamer Carbonate (Renvela -) 800 mg PO TIDCM [facility] Last Admin: 02/05/17 12:47 Dose: 800 mg Zolpidem Tartrate (Ambien -) 5 mg PO HS PRN PRN Reason: INSOMNIA Last Admin: 02/04/17 23:24 Dose: 5 mg a/p RLL pneumonia continue rocephin/zithromax for CAP hiv- stable- continue ART esrd/hd- dialysis per renal hep c d/w family at bedside if blood cultures are negative can stop vancomycin
[2017-02-05] MEDS ORDERED: VANCOMYCIN 1,000 MG in DEXTROSE 5%-WATER - 250 ML IVPB ONE (14:45)
[2017-02-05] MEDS ORDERED: VANCOMYCIN 500 MG in DEXTROSE 5%-WATER - 250 ML IVPB ONE (15:15)
--- NOTE | 2017-02-05 15:20 | PN ---
Teaching Attending Note Name of Resident: Angelina Jolly ATTENDING PHYSICIAN STATEMENT I saw and evaluated the patient. I reviewed the resident's note and discussed the case with the resident. I agree with the resident's findings and plan as documented. SUBJECTIVE: Declined interview and exam ASSESSMENT AND PLAN: 56 y/o unfortunate lady with h/o HTN, HLP, ESRD on HD, HIV and other medical problems who presented from PCP office with a diagnosis of PNA 1- CAP: Cxray reviewed. unfortunately no Physical exam done - cont ceftriaxone and Azitho . EKG reviewed - received vanco x 2 . d/w Dr. Nelson, will not continue - follow blood cx and sputum cx ( prelim, jen ) - Urine legionella if she makes urine . 2- ESRD with hyperkalemia . - HD today - cont to monitor electrolytes 3- HTN: cont losartan 4- H/o Substance abuse : cont methadone 5- HIV : cont meds dispo : HLOC
--- NOTE | 2017-02-05 16:21 | CON.NEP ---
Consult Consult Specialty:: Nephrology Referred by:: Dr. Cabrera Reason for Consultation:: ESRD on HD - History of Present Illness Chief Complaint: SOB History of Present Illness: This is a 56 year old woman with PMHx of ESRD on HD (MWF), Hepatitis C, HIV who presented with cough and admitted with PNA. Pt last had dialysis on Wednesday. Pt seen while on dialysis. Pt is very lethargic but arouseable to verbal stimuli. She says she just got her methadone. Denies any CP, fever, chills, N/V/ D. - History Source History Provided By: Patient, Medical Record Limitations to Obtaining History: Clinical Condition - Past Medical History Cardio/Vascular: Yes: HTN Renal/: Yes: Renal Failure, Hemodialysis ...LMP: 02/18/11 ...: No Infectious Disease: Yes: HIV Dermatology: Yes: Squamous Cell - Past Surgical History Past Surgical History: Yes: AV Fistula/Graft - Alcohol/Substance Use Hx Alcohol Use: No - Smoking History Smoking history: Former smoker Have you smoked in the past 12 months: No Aproximately how many cigarettes per day: 20 If you are a former smoker, when did you quit?: 2013 Home Medications - Allergies Allergies/Adverse Reactions: Allergies Allergy/AdvReac Type Severity Reaction Status Date / Time No Known Drug Allergies Allergy Verified 02/04/17 11:19 - Home Medications Home Medications: Ambulatory Orders Methadone [Dolophine -] 80 mg PO DAILY 06/18/15 Sevelamer Carbonate [Renvela -] 800 mg PO TIDCM 06/18/15 Lopinavir/Ritonavir [Kaletra 200-50 mg Tablet] 2 each PO BID #120 tablet Abacavir Sulfate [Ziagen -] 300 mg PO BID #60 tablet 01/14/17 Losartan Potassium 50 mg PO DAILY #30 tablet 01/14/17 Raltegravir [Isentress] 400 mg PO BID #60 tab 01/14/17 Diltiazem HCl [Diltiazem 24Hr Cd] 120 mg PO DAILY #30 cap.er.24h 01/15/17 Oxycodone HCl/Acetaminophen [Percocet 10-325 mg Tablet] 1 each PO BID PRN #60 tablet MDD 2 01/18/17 Clonazepam [Klonopin -] 0.5 mg PO HS PRN #30 tab MDD 1 01/28/17 Aripiprazole 2 mg PO AM 02/04/17 Baclofen 10 mg PO TID 02/04/17 Cinacalcet HCl [Sensipar] 30 mg PO DAILY 02/04/17 Zolpidem Tartrate [Ambien] 5 mg PO HS PRN MDD 1 02/04/17 Family Disease History - Family Disease History Family Disease History: Heart Disease: Father (,), CA: Mother ( liver, etoh), Other: Father, Mother, Sister (three - alive, one on dialysis), Daughter (alive, healthy) Review of Systems Unable to obtain ROS, reason: pt very lethagic and not Nephrology Consult - Height Height: 5 ft 5 in - Weight Weight: 77.111 kg - BMI Body Mass Index (BMI): 28.3 - Lab Results CBC,BMP: CBC, BMP 02/05/17 06:00 02/05/17 06:00 Anion Gap: Anion Gap Anion Gap 17 (8-16) H 02/05/17 06:00 - Imaging Chest X-ray: Report Reviewed - Physical Examination Vital Signs: Vital Signs Temperature 97.8 F 02/05/17 10:27 Pulse Rate 60 02/05/17 10:27 Respiratory Rate 18 02/05/17 10:27 Blood Pressure 142/82 02/05/17 10:27 O2 Sat by Pulse Oximetry (%) 96 02/04/17 20:04 Constitutional: Yes: Well Nourished, No Distress, Calm Eyes: Yes: Conjunctiva Clear HENT: Yes: Atraumatic Neck: Yes: Supple Cardiovascular: Yes: Regular Rate and Rhythm Respiratory: Yes: Regular, CTA Bilaterally. No: Rales, SOB Gastrointestinal: Yes: Normal Bowel Sounds, Soft. No: Tenderness Access for Hemodialysis: AV Fistula Extremities: No: Cold, Cool, Cyanosis Edema: No Problem List - Problems (1) Pneumonia Code(s): J18.9 - PNEUMONIA, UNSPECIFIED ORGANISM Qualifiers: Pneumonia type: due to unspecified organism Laterality: right Lung location: lower lobe of lung Qualified Code(s): J18.1 - Lobar pneumonia, unspecified organism (2) ESRD (end stage renal disease) Code(s): N18.6 - END STAGE RENAL DISEASE (3) HIV (human immunodeficiency virus infection) Code(s): Z21 - ASYMPTOMATIC HUMAN IMMUNODEFICIENCY VIRUS INFECTION STATUS (4) HTN (hypertension) Code(s): I10 - ESSENTIAL (PRIMARY) HYPERTENSION Qualifiers: Hypertension type: essential hypertension Qualified Code(s): I10 - Essential (primary) hypertension Assessment/Plan 56 year old woman with PMHx of ESRD on HD (MWF), Hepatitis C, HIV who presented with cough and admitted with PNA #PNA Continue Zithromax, Ceftriaxone as per ID/PMD s/p VAnco x 1 f/u cultures supportive care #ESRD on HD tolerating dialysis well Goal UF is 2.5L dose all meds for intermittent HD #Hypertension Continue Losartan #CKD related Anemia hgb at goal #HIV/Hep C anti-virals as per ID supportive care #Renal osteodystrophy continue sensipar trend phos and ca levels Thank you Will follow John Cheung DO
--- NOTE | 2017-02-05 18:47 | PN ---
Physical Exam: SUBJECTIVE: Patient seen and examined. Pt denies fever, chills, sob, chest pain , abdominal pain. No events overnight. OBJECTIVE: Vital Signs Period Temp Pulse Resp BP Sys/Curry Pulse Ox Last 24 Hr 97.8 F-99.2 F 58-68 18-20 120-148/62-94 96-96 GENERAL: Awake, alert, and fully oriented, in no acute distress. LUNGS: Bibasilar crackles increased. No accessory muscle use. HEART: Regular rate and rhythm, normal S1 and S2 without murmur, rub or gallop. ABDOMEN: Soft, nontender, not distended. UPPER EXTREMITIES: Warm, well-perfused. No cyanosis. No clubbing. No peripheral edema. Left fistula, normal sounding bruit with palpable thrill. LOWER EXTREMITIES: Warm, well-perfused. No calf tenderness. No peripheral edema. PSYCHIATRIC: Cooperative. Good eye contact. Appropriate mood and affect. SKIN: Warm, dry, normal turgor, no rashes or lesions noted. Laboratory Results - last 24 hr 02/04/17 02/05/17 02/05/17 19:30 06:00 06:00 WBC 17.3 H RBC 3.36 L Hgb 10.7 Hct 33.8 MCV 100.7 H MCH 31.9 MCHC 31.7 L RDW 15.7 H Plt Count 166 MPV 7.4 L Total Counted 100 Neutrophils % No Result Required. Neutrophils % (Manual) 74.0 Lymphocytes % No Result Required. Lymphocytes % (Manual) 10.0 D Monocytes % (Manual) 14 H Myelocytes % (Man) 1 Plasma Cells 1 Sodium 131 L 130 L Potassium 4.8 5.5 H Chloride 96 L 96 L Carbon Dioxide 22 17 L D Anion Gap 13 17 H BUN 50 H 56 H Creatinine 9.3 H* 10.6 H* Random Glucose 79 D 65 L Calcium 8.9 9.2 Phosphorus 4.7 Magnesium 2.3 D Random Vancomycin 02/05/17 13:30 WBC RBC Hgb Hct MCV MCH MCHC RDW Plt Count MPV Total Counted Neutrophils % Neutrophils % (Manual) Lymphocytes % Lymphocytes % (Manual) Monocytes % (Manual) Myelocytes % (Man) Plasma Cells Sodium Potassium Chloride Carbon Dioxide Anion Gap BUN Creatinine Random Glucose Calcium Phosphorus Magnesium Random Vancomycin 16.586 Active Medications Generic Name Dose Route Start Last Admin Trade Name Freq PRN Reason Stop Dose Admin Abacavir Sulfate 300 mg 02/04/17 22:00 02/05/17 09:41 Ziagen - PO 300 mg BID MARY Administration Acetaminophen 650 mg 02/04/17 14:31 Tylenol - PO Q4H PRN FEVER OR PAIN Acetaminophen 325 mg 02/04/17 19:06 Tylenol - PO BID PRN Aripiprazole 2 mg 02/05/17 07:00 02/05/17 06:24 Abilify PO 2 mg AM MARY Administration Azithromycin 250 mg 02/05/17 13:00 02/05/17 12:56 Zithromax - PO 250 mg DAILY MARY Administration Baclofen 10 mg 02/04/17 22:00 02/05/17 15:41 Lioresal - PO Not Given TID [facility] Cinacalcet 30 mg 02/05/17 10:00 02/05/17 09:41 Sensipar - PO 30 mg DAILY MARY Administration Clonazepam 0.5 mg 02/04/17 17:52 Klonopin - PO HS PRN ANXIETY Diltiazem HCl 120 mg 02/05/17 10:00 02/05/17 09:36 Cardizem Cd - PO 120 mg DAILY MARY Administration Heparin Sodium (Porcine) 5,000 unit 02/04/17 22:30 02/05/17 15:41 Heparin - SQ Not Given TID [facility] Ceftriaxone Sodium 2 gm/ 100 mls @ 200 mls/hr 02/06/17 10:00 Dextrose IVPB DAILY [facility] Lopinavir/Ritonavir 2 tablet 02/04/17 22:00 02/05/17 09:41 Kaletra 200mg/50mg - PO 2 tablet BID MARY Administration Losartan Potassium 50 mg 02/05/17 10:00 02/05/17 09:36 Cozaar - PO 50 mg DAILY MARY Administration Methadone HCl 80 mg 02/05/17 11:00 02/05/17 11:05 Dolophine - PO 80 mg DAILY@0600 MARY Administration Oxycodone HCl 10 mg 02/04/17 19:07 02/05/17 09:48 Roxicodone - PO 10 mg BID PRN Administration Raltegravir 400 mg 02/04/17 22:00 02/05/17 09:42 Isentress - PO 400 mg BID MARY Administration Sevelamer Carbonate 800 mg 02/05/17 08:00 02/05/17 18:13 Renvela - PO 800 mg TIDCM MARY Administration Zolpidem Tartrate 5 mg 02/04/17 17:52 02/04/17 23:24 Ambien - PO 5 mg HS PRN Administration INSOMNIA IMAGIN02/05/17 CXR -> persistent atelectatic changes and infiltrates to Right lower lung, with similar interval changes to Left lower lung (mild atelectatic changes and possible infiltrates). ASSESSMENT/PLAN: 56yo F with PMH of HIV (CD4 338 and Viral Load <20 on 08/27/16), ESRD (HD on MWF) , presents from PCP office with diagnosed Community Acquired Pneumonia. # CAP - ID (Dr. Sanchez) recs appreciated: - Day 2 of IV Ceftriaxone and Day 1 of IV Azithromycin - blood and sputum cultures (-) x 24 hrs - f/u urine Legionella if pt makes urine, she is anuric - Tylenol prn for fever or pain - supplemental O2 prn # ESRD - HD today - baseline Cr 8-10 per EMR - continue Renvela # Renal osteodystrophy - continue home med of Sensipar # htn - continue home meds of Losartan and Diltiazem # HIV - continue home meds of Kaletra, Raltegravir, and Ziagen - follows at [facility] # Hep C - GI is Dr. Moore - f/u as outpatient # polysubstance abuse - continue home med of Methadone # anxiety - continue home meds of Klonopin and Aripiprazole # borderline hypoglycemia - pt denies hx of DM - continue to monitor # FEN - Fluids: po - Electrolytes: hyponatremia and hyperkalemia likely 2/2 ESRD noted, continue to monitor - Nutrition: renal diet # DVT Prophylaxis - Heparin 5,000U SQ TID Visit type - Emergency Visit Emergency Visit: Yes ED Registration Date: 02/04/17 Care time: The patient presented to the Emergency Department on the above date and was hospitalized for further evaluation of their emergent condition. - New Patient This patient is new to me today: No - Critical Care Critical Care patient: No
[2017-02-06] MEDS: HEPARIN NA (PORCINE) 5,000 UNITS/ML 1ML VIAL SQ SCH ×3 (05:23→21:15)
[2017-02-06] MEDS: BACLOFEN 10 MG TABLET (FP) PO SCH (06:13)
[2017-02-06] MEDS: ARIPiprazole 2 MG TABLET PO SCH (06:13)
[2017-02-06] MEDS: METHADONE HCL 40 MG DISPERSABLE TABLET PO SCH (06:13)
[2017-02-06 07:48] LABS: MCH 32.3 pg (25.7-33.7); MCHC 32.7 g/dl (32.0-36.0); MEAN CELL VOLUME 98.6 fl (80-96); MEAN PLT VOLUME 7.4 fl (7.5-11.1); PLATELET COUNT 191 K/MM3 (134-434); RDW 15.1 % (11.6-15.6); WHITE BLOOD COUNT 15.1 K/mm3 (4.0-10.0)
[2017-02-06 08:20] LABS: ANION GAP 9 (8-16); CALCIUM 7.8 mg/dL (8.5-10.1); CO2 30 mmol/L (21-32); CREATININE 7.2 mg/dL (0.55-1.02); GLUCOSE,RANDOM 74 mg/dL (74-106); PHOSPHOROUS 3.4 mg/dL (2.5-4.9)
--- NOTE | 2017-02-06 09:01 | PN ---
Teaching Attending Note Name of Resident: Angelina Jolly ATTENDING PHYSICIAN STATEMENT I saw and evaluated the patient. I reviewed the resident's note and discussed the case with the resident. I agree with the resident's findings and plan as documented. SUBJECTIVE: No fever or chills. refused her Abx . had an episode of vomiting yesterday evening OBJECTIVE: NAD , AAOx3. CV: RRR, no MRG Lungs : fine crackles at R side, half way down. NO wheezing. NO use of accessory muscles Ext: no edema over LE ASSESSMENT AND PLAN: 56 y/o unfortunate lady with h/o HTN, HLP, ESRD on HD, HIV and other medical problems who presented from PCP office with a diagnosis of PNA 1- CAP: leukocytosis improved , and no fever last night refused Abx - Cont to refuse ceftriaxone and Azitho . Risks of bacteremia and severe sepsis with complications of resultant were d/w her . she verbalized to understand - Received vanco with HD yesterday. will not cont - follow blood cx and sputum cx ( prelim, jen ) - Urine legionella if she makes urine . 2- ESRD: hyperkalemiar resolved . - HD yesterday - cont to monitor electrolytes 3- HTN: cont losartan. 4- H/o Substance abuse: cont methadone 5- HIV: cont meds. dispo : HLOC
--- NOTE | 2017-02-06 09:27 | PN ---
Progress Note (short form) - Note Progress Note: seen on HD alert no complaints tremulous spilledwater on herself this am episode vomiting last pm, no abdominal pain Vital Signs Period Temp Pulse Resp BP Sys/Curry Pulse Ox Last 24 Hr 97.8 F-98.8 F 58-72 18-20 120-148/62-94 93 cor-rrr lungs crackles right base abd soft,nt ext no edema CBC, BMP 02/06/17 06:45 02/06/17 06:45 Microbiology 02/04/17 13:05 Sputum - Expectorated Gram Stain - Final 02/04/17 13:05 Sputum - Expectorated Sputum Culture - Preliminary NORMAL RESPIRATORY ARNALDO 02/04/17 12:13 Blood - Peripheral Venous Blood Culture - Preliminary NO GROWTH OBTAINED AFTER 24 HOURS, INCUBATION TO CONTINUE FOR 4 DAYS. 02/04/17 12:00 Blood - Peripheral Venous Blood Culture - Preliminary NO GROWTH OBTAINED AFTER 24 HOURS, INCUBATION TO CONTINUE FOR 4 DAYS. a/p RLL pneumonia continue rocephin/zithromax for CAP hiv- stable- continue ART esrd/hd- dialysis per renal hep c meds reviewed with patient- patient does not take abilify and baclofen- please d /c she take klonopin daily .5 mg -would continue vomiting for last several days once daily- agree with head ct -patient is agreeable d/w family d/w hospitalist service Problem List - Problems (1) Pneumonia Code(s): J18.9 - PNEUMONIA, UNSPECIFIED ORGANISM Qualifiers: Pneumonia type: due to unspecified organism Laterality: right Lung location: lower lobe of lung Qualified Code(s): J18.1 - Lobar pneumonia, unspecified organism (2) HIV (human immunodeficiency virus infection) Code(s): Z21 - ASYMPTOMATIC HUMAN IMMUNODEFICIENCY VIRUS INFECTION STATUS (3) ESRD (end stage renal disease) Code(s): N18.6 - END STAGE RENAL DISEASE
[2017-02-06] MEDS: ABACAVIR SULFATE 300 MG TABLET PO SCH ×2 (09:35→21:11)
[2017-02-06] MEDS: AZITHROMYCIN 250 MG TABLET PO SCH (09:35)
[2017-02-06] MEDS: LOSARTAN POTASSIUM 50 MG TABLET (FP) PO SCH (09:35)
[2017-02-06] MEDS: RITONAVIR/LOPINAVIR 50MG/200MG 1 COMBO TABLET PO SCH ×2 (09:36→21:11)
[2017-02-06] MEDS: RALTEGRAVIR POTASSIUM 400 MG TAB PO SCH ×2 (09:37→21:10)
[2017-02-06] MEDS: CINACALCET HCL 30 MG TAB (FP) PO SCH (09:39)
[2017-02-06] MEDS: SEVELAMER CARBONATE 800 MG TAB (FP) PO SCH (09:39)
[2017-02-06] MEDS: CEFTRIAXONE 2 GM in DEXTROSE 5%-WATER - 100 ML IVPB SCH (09:39)
[2017-02-06] MEDS ORDERED: AZITHROMYCIN IVPB 250 MG in DEXTROSE 5%-WATER - 250 ML IVPB SCH (09:45)
[2017-02-06] MEDS ORDERED: cefTRIAXone 2 GM/100 ML BAG (PRE-DOCKED) IVPB SCH (10:00)
[2017-02-06 10:03] LABS: METAMYELOCYTE 3 % (0-2); PLATELET ESTIMATE ADEQUATE; TOTAL CELLS COUNTED 100
[2017-02-06] MEDS ORDERED: clonazePAM 0.5 MG TABLET PO ONE (10:15)
[2017-02-06] MEDS ORDERED: PT OWN MED DRAWER 7, Y5N ONE (10:47)
--- NOTE | 2017-02-06 11:32 | PN ---
Progress Note (short form) - Note Progress Note: Renal Follow up for ESRD on HD Pt seen and examined at the bedside sleeping but awoke and was alert complains of feeling warm but not febrile no sob, chest pain, N/V Vital Signs Temperature 98.7 F 02/06/17 06:00 Pulse Rate 63 02/06/17 06:00 Respiratory Rate 20 02/06/17 06:00 Blood Pressure 134/82 02/06/17 06:00 O2 Sat by Pulse Oximetry (%) 93 L 02/05/17 21:00 Intake & Output 02/03/17 02/04/17 02/05/17 02/06/17 23:59 23:59 23:59 23:59 Intake Total 150 2049 250 Balance 150 2049 250 Weight 77.111 kg 77.111 kg NAD awake and alert RRRR CTA soft NT No LE edema CBC, BMP 02/06/17 06:45 02/06/17 06:45 Current Medications Abacavir Sulfate (Ziagen -) 300 mg PO BID [facility] Last Admin: 02/06/17 09:35 Dose: 300 mg Acetaminophen (Tylenol -) 650 mg PO Q4H PRN PRN Reason: FEVER OR PAIN Acetaminophen (Tylenol -) 325 mg PO BID PRN Clonazepam (Klonopin -) 0.5 mg PO AM [facility] Diltiazem HCl (Cardizem Cd -) 120 mg PO DAILY [facility] Last Admin: 02/06/17 09:35 Dose: 120 mg Heparin Sodium (Porcine) (Heparin -) 5,000 unit SQ TID [facility] Last Admin: 02/06/17 05:23 Dose: Not Given Ceftriaxone Sodium 2 gm/ (Dextrose) 100 mls @ 200 mls/hr IVPB DAILY [facility] Last Admin: 02/06/17 09:39 Dose: 200 mls/hr Azithromycin 250 mg/ Dextrose 250 mls @ 250 mls/hr IVPB DAILY [facility] Lopinavir/Ritonavir (Kaletra 200mg/50mg -) 2 tablet PO BID [facility] Last Admin: 02/06/17 09:36 Dose: 2 tablet Methadone HCl (Dolophine -) 80 mg PO DAILY@0600 [facility] Last Admin: 02/06/17 06:13 Dose: 80 mg Oxycodone HCl (Roxicodone -) 10 mg PO BID PRN Last Admin: 02/05/17 09:48 Dose: 10 mg Raltegravir (Isentress -) 400 mg PO BID [facility] Last Admin: 02/06/17 09:37 Dose: 400 mg Zolpidem Tartrate (Ambien -) 5 mg PO HS PRN PRN Reason: INSOMNIA Last Admin: 02/04/17 23:24 Dose: 5 mg 56 year old woman with PMHx of ESRD on HD (MWF), Hepatitis C, HIV who presented with cough and admitted with PNA #PNA Continue Abx as per ID leukocytosis improving, no fever #ESRD on HD s/p dialysis yesterday next treatment planned for tomorrow #Hypertension Continue Losartan goal BP < 140/90 #CKD related Anemia hgb at goal #HIV/Hep C anti-virals as per ID supportive care #Renal osteodystrophy continue sensipar trend phos and ca levels Thank you Will follow John Cheung DO Problem List - Problems (1) Pneumonia Code(s): J18.9 - PNEUMONIA, UNSPECIFIED ORGANISM Qualifiers: Pneumonia type: due to unspecified organism Laterality: right Lung location: lower lobe of lung Qualified Code(s): J18.1 - Lobar pneumonia, unspecified organism (2) ESRD (end stage renal disease) Code(s): N18.6 - END STAGE RENAL DISEASE (3) HIV (human immunodeficiency virus infection) Code(s): Z21 - ASYMPTOMATIC HUMAN IMMUNODEFICIENCY VIRUS INFECTION STATUS (4) HTN (hypertension) Code(s): I10 - ESSENTIAL (PRIMARY) HYPERTENSION Qualifiers: Hypertension type: essential hypertension Qualified Code(s): I10 - Essential (primary) hypertension
--- NOTE | 2017-02-06 15:03 | PN ---
Physical Exam: SUBJECTIVE: Patient seen and examined. Pt c/o feeling shaky and vomiting once a day for the past few days. No fever, chills. No events overnight. OBJECTIVE: Vital Signs Period Temp Pulse Resp BP Sys/Curry Pulse Ox Last 24 Hr 98.1 F-98.8 F 58-72 18-20 128-148/72-94 93-97 GENERAL: Awake, alert, and fully oriented, in no acute distress. LUNGS: Crackles to Right lower lung, no accessory muscle use. HEART: Regular rate and rhythm, normal S1 and S2 without murmur, rub or gallop. ABDOMEN: Soft, nontender, not distended. UPPER EXTREMITIES: Warm, well-perfused. No cyanosis. No clubbing. No peripheral edema. Left fistula, normal sounding bruit with palpable thrill. LOWER EXTREMITIES: Warm, well-perfused. No calf tenderness. No peripheral edema. SKIN: Warm, dry, normal turgor, no rashes or lesions noted. Laboratory Results - last 24 hr 02/05/17 02/05/17 02/06/17 13:30 13:30 06:45 WBC 15.1 H RBC 3.50 L Hgb 11.3 Hct 34.5 MCV 98.6 H MCH 32.3 MCHC 32.7 RDW 15.1 Plt Count 191 MPV 7.4 L Total Counted 100 Neutrophils % No Result Required. Neutrophils % (Manual) 63.0 Band Neutrophils % 1.0 Lymphocytes % No Result Required. Lymphocytes % (Manual) 15.0 D Monocytes % (Manual) 17 H* Basophils % (Manual) 1.0 Metamyelocytes 3 H D Platelet Estimate Adequate Sodium Potassium Chloride Carbon Dioxide Anion Gap BUN Creatinine Random Glucose Calcium Phosphorus Magnesium Random Vancomycin 16.586 Hepatitis C Antibody >11.0 H 02/06/17 06:45 WBC RBC Hgb Hct MCV MCH MCHC RDW Plt Count MPV Total Counted Neutrophils % Neutrophils % (Manual) Band Neutrophils % Lymphocytes % Lymphocytes % (Manual) Monocytes % (Manual) Basophils % (Manual) Metamyelocytes Platelet Estimate Sodium 137 Potassium 4.5 Chloride 98 Carbon Dioxide 30 D Anion Gap 9 BUN 28 H D Creatinine 7.2 H D Random Glucose 74 Calcium 7.8 L Phosphorus 3.4 D Magnesium 2.0 Random Vancomycin Hepatitis C Antibody Active Medications Generic Name Dose Route Start Last Admin Trade Name Freq PRN Reason Stop Dose Admin Abacavir Sulfate 300 mg 02/04/17 22:00 02/06/17 09:35 Ziagen - PO 300 mg BID MARY Administration Acetaminophen 650 mg 02/04/17 14:31 Tylenol - PO Q4H PRN FEVER OR PAIN Acetaminophen 325 mg 02/04/17 19:06 Tylenol - PO BID PRN Cinacalcet 30 mg 02/07/17 10:00 Sensipar - PO DAILY MARY Clonazepam 0.5 mg 02/07/17 07:00 Klonopin - PO AM MARY Diltiazem HCl 120 mg 02/05/17 10:00 02/06/17 09:35 Cardizem Cd - PO 120 mg DAILY MARY Administration Heparin Sodium (Porcine) 5,000 unit 02/04/17 22:30 02/06/17 13:45 Heparin - SQ Not Given TID MARY Ceftriaxone Sodium 2 gm/ 100 mls @ 200 mls/hr 02/06/17 10:00 02/06/17 09:39 Dextrose IVPB 200 mls/hr DAILY MARY Administration Azithromycin 250 mg/ Dextrose 250 mls @ 250 mls/hr 02/07/17 10:00 IVPB DAILY MARY Lopinavir/Ritonavir 2 tablet 02/04/17 22:00 02/06/17 09:36 Kaletra 200mg/50mg - PO 2 tablet BID MARY Administration Losartan Potassium 50 mg 02/07/17 10:00 Cozaar - PO DAILY MARY Methadone HCl 80 mg 02/05/17 11:00 02/06/17 06:13 Dolophine - PO 80 mg DAILY@0600 MARY Administration Oxycodone HCl 10 mg 02/04/17 19:07 02/05/17 09:48 Roxicodone - PO 10 mg BID PRN Administration Raltegravir 400 mg 02/04/17 22:00 02/06/17 09:37 Isentress - PO 400 mg BID MARY Administration Zolpidem Tartrate 5 mg 02/04/17 17:52 02/04/17 23:24 Ambien - PO 5 mg HS PRN Administration INSOMNIA IMAGIN02/06/[address] -> mild volume loss and chronic microvascular ischemic changes noted without evidence of acute intracranial pathology. ASSESSMENT/PLAN: 56yo F with PMH of HIV (CD4 338 and Viral Load <20 on 08/27/16), ESRD (HD on MWF) , presents from PCP office with diagnosed Community Acquired Pneumonia. # shakiness and slight confusion this morning - Head CT (-) for acute intracranial pathology - resolved upon reassessment in the afternoon - medications were reconciled between pt, pt's spouse, pt's daughter, PCP, and pharmacy # CAP - ID (Dr. Sanchez) recs appreciated: - Day 3 of IV Ceftriaxone and Day 2 of IV Azithromycin - blood and sputum cultures (-) x 48 hrs - Tylenol prn for fever or pain - supplemental O2 prn - leukocytosis improving # ESRD - hyperkalemia resolved with HD yesterday - baseline Cr 8-10 per EMR # htn - continue home med of Diltiazem # HIV - continue home meds of Kaletra, Raltegravir, and Ziagen - follows at [facility] # polysubstance abuse - continue home med of Methadone # anxiety - continue home meds of Klonopin # FEN - Fluids: po - Electrolytes: wnl, continue to monitor - Nutrition: renal diet # DVT Prophylaxis - Heparin 5,000U SQ TID Visit type - Emergency Visit Emergency Visit: Yes ED Registration Date: 02/04/17 Care time: The patient presented to the Emergency Department on the above date and was hospitalized for further evaluation of their emergent condition. - New Patient This patient is new to me today: No - Critical Care Critical Care patient: No
[2017-02-06] MEDS: oxyCODONE HCL 5 MG TABLET PO PRN (21:13)
[2017-02-06] MEDS: ZOLPIDEM TARTRATE 5 MG TABLET PO PRN (21:14)
[2017-02-06] MEDS ORDERED: clonazePAM 0.5 MG TABLET PO SCH (22:00)
[2017-02-07] MEDS: METHADONE HCL 40 MG DISPERSABLE TABLET PO SCH (06:29)
[2017-02-07] MEDS: clonazePAM 0.5 MG TABLET PO SCH (06:30)
[2017-02-07] MEDS: HEPARIN NA (PORCINE) 5,000 UNITS/ML 1ML VIAL SQ SCH ×3 (06:30→23:00)
[2017-02-07 08:46] LABS: MCH 32.2 pg (25.7-33.7); MCHC 32.7 g/dl (32.0-36.0); MEAN CELL VOLUME 98.6 fl (80-96); MEAN PLT VOLUME 6.9 fl (7.5-11.1); PLATELET COUNT 193 K/MM3 (134-434); RDW 15.4 % (11.6-15.6)
[2017-02-07 09:25] LABS: ANION GAP 16 (8-16); CALCIUM 8.6 mg/dL (8.5-10.1); CO2 22 mmol/L (21-32); GLUCOSE,RANDOM 72 mg/dL (74-106); PHOSPHOROUS 3.6 mg/dL (2.5-4.9)
[2017-02-07 09:52] LABS: CREATININE 9.5 mg/dL (0.55-1.02)
--- NOTE | 2017-02-07 10:46 | PN ---
Progress Note (short form) - Note Progress Note: seen on HD alert no complaints back to baseline mental status asking for results of Head CT Vital Signs Period Temp Pulse Resp BP Sys/Curry Pulse Ox Last 24 Hr 97.9 F-98.5 F 54-91 18-20 107-151/65-97 95 cor-rrr lungs crackles at right base abd soft,nt ext no edema CBC, BMP 02/07/17 06:40 02/07/17 06:40 Microbiology 02/04/17 13:05 Sputum - Expectorated Gram Stain - Final 02/04/17 13:05 Sputum - Expectorated Sputum Culture - Final NORMAL RESPIRATORY ARNALDO 02/04/17 12:13 Blood - Peripheral Venous Blood Culture - Preliminary NO GROWTH OBTAINED AFTER 48 HOURS, INCUBATION TO CONTINUE FOR 3 DAYS. 02/04/17 12:00 Blood - Peripheral Venous Blood Culture - Preliminary NO GROWTH OBTAINED AFTER 48 HOURS, INCUBATION TO CONTINUE FOR [address] no acute changes a/p RLL pneumonia continue rocephin/zithromax for CAP day #3 antiibotics clinically improved hiv- stable- continue ART esrd/hd- dialysis per renal hep c Problem List - Problems (1) Pneumonia Code(s): J18.9 - PNEUMONIA, UNSPECIFIED ORGANISM Qualifiers: Pneumonia type: due to unspecified organism Laterality: right Lung location: lower lobe of lung Qualified Code(s): J18.1 - Lobar pneumonia, unspecified organism (2) HIV (human immunodeficiency virus infection) Code(s): Z21 - ASYMPTOMATIC HUMAN IMMUNODEFICIENCY VIRUS INFECTION STATUS (3) ESRD (end stage renal disease) Code(s): N18.6 - END STAGE RENAL DISEASE
--- NOTE | 2017-02-07 11:04 | PN ---
Progress Note (short form) - Note Progress Note: Renal Follow up for ESRD on HD Pt seen and examined during dialysis BP good, AVF with good flow no acute complaints MS improved to baseline Vital Signs Temperature 98.3 F 02/07/17 08:05 Pulse Rate 59 L 02/07/17 10:40 Respiratory Rate 18 02/07/17 10:40 Blood Pressure 109/75 02/07/17 10:40 O2 Sat by Pulse Oximetry (%) 95 02/06/17 21:00 Intake & Output 02/04/17 02/05/17 02/06/17 02/07/17 23:59 23:59 23:59 23:59 Intake Total 150 2049 770 320 Balance 150 2049 770 320 Weight 77.111 kg 77.111 kg NAD awake and alert RRRR CTA soft NT No LE edema CBC, BMP 02/07/17 06:40 02/07/17 06:40 Current Medications Abacavir Sulfate (Ziagen -) 300 mg PO BID [facility] Last Admin: 02/06/17 21:11 Dose: 300 mg Acetaminophen (Tylenol -) 650 mg PO Q4H PRN PRN Reason: FEVER OR PAIN Acetaminophen (Tylenol -) 325 mg PO BID PRN Cinacalcet (Sensipar -) 30 mg PO DAILY [facility] Clonazepam (Klonopin -) 0.5 mg PO AM [facility] Last Admin: 02/07/17 06:30 Dose: 0.5 mg Diltiazem HCl (Cardizem Cd -) 120 mg PO DAILY [facility] Last Admin: 02/06/17 09:35 Dose: 120 mg Heparin Sodium (Porcine) (Heparin -) 5,000 unit SQ TID [facility] Last Admin: 02/07/17 06:30 Dose: Not Given Ceftriaxone Sodium 2 gm/ (Dextrose) 100 mls @ 200 mls/hr IVPB DAILY [facility] Last Admin: 02/06/17 09:39 Dose: 200 mls/hr Azithromycin 250 mg/ Dextrose 250 mls @ 250 mls/hr IVPB DAILY [facility] Lopinavir/Ritonavir (Kaletra 200mg/50mg -) 2 tablet PO BID [facility] Last Admin: 02/06/17 21:11 Dose: 2 tablet Losartan Potassium (Cozaar -) 50 mg PO DAILY [facility] Methadone HCl (Dolophine -) 80 mg PO DAILY@0600 [facility] Last Admin: 02/07/17 06:29 Dose: 80 mg Oxycodone HCl (Roxicodone -) 10 mg PO BID PRN Last Admin: 02/06/17 21:13 Dose: 10 mg Raltegravir (Isentress -) 400 mg PO BID MARY Last Admin: 02/06/17 21:10 Dose: 400 mg Zolpidem Tartrate (Ambien -) 5 mg PO HS PRN PRN Reason: INSOMNIA Last Admin: 02/06/17 21:14 Dose: 5 mg 56 year old woman with PMHx of ESRD on HD (MWF), Hepatitis C, HIV who presented with cough and admitted with PNA #PNA Continue Abx as per ID leukocytosis improving, no fever #ESRD on HD tolerating HD well today on 2kg bath UF goal 2.5 L as tolerated #Hypertension Continue Losartan goal BP < 140/90 #CKD related Anemia hgb at goal #HIV/Hep C anti-virals as per ID supportive care #Renal osteodystrophy continue sensipar trend phos and ca levels #AMS/Lethargy improved today CT head w/o any acute changes John Cheung DO Problem List - Problems (1) Pneumonia Code(s): J18.9 - PNEUMONIA, UNSPECIFIED ORGANISM Qualifiers: Pneumonia type: due to unspecified organism Laterality: right Lung location: lower lobe of lung Qualified Code(s): J18.1 - Lobar pneumonia, unspecified organism (2) ESRD (end stage renal disease) Code(s): N18.6 - END STAGE RENAL DISEASE (3) HIV (human immunodeficiency virus infection) Code(s): Z21 - ASYMPTOMATIC HUMAN IMMUNODEFICIENCY VIRUS INFECTION STATUS (4) HTN (hypertension) Code(s): I10 - ESSENTIAL (PRIMARY) HYPERTENSION Qualifiers: Hypertension type: essential hypertension Qualified Code(s): I10 - Essential (primary) hypertension
[2017-02-07] MEDS ORDERED: PT OWN MED DRAWER 7, Y5N ONE (11:51)
[2017-02-07] MEDS: LOSARTAN POTASSIUM 50 MG TABLET (FP) PO SCH (12:17)
[2017-02-07] MEDS: CINACALCET HCL 30 MG TAB (FP) PO SCH (12:18)
[2017-02-07] MEDS: RALTEGRAVIR POTASSIUM 400 MG TAB PO SCH ×2 (12:18→21:44)
[2017-02-07] MEDS: RITONAVIR/LOPINAVIR 50MG/200MG 1 COMBO TABLET PO SCH ×2 (12:18→21:44)
[2017-02-07] MEDS: AZITHROMYCIN IVPB 250 MG in DEXTROSE 5%-WATER - 250 ML IVPB SCH (12:19)
[2017-02-07] MEDS: ABACAVIR SULFATE 300 MG TABLET PO SCH ×2 (12:19→21:45)
[2017-02-07] MEDS: oxyCODONE HCL 5 MG TABLET PO PRN ×2 (12:19→23:40)
[2017-02-07] MEDS: CEFTRIAXONE 2 GM in DEXTROSE 5%-WATER - 100 ML IVPB SCH (12:19)
[2017-02-07] MEDS: ACETAMINOPHEN 325 MG TABLET (FP) PO PRN (12:20)
--- NOTE | 2017-02-07 14:03 | PN ---
Progress Note (short form) - Note Progress Note: Subjective: No fever or chills . HAs no CP . SOB has improved . No N/V . No abd pain . Objective: Vital Signs: Last Vital Signs Temp Pulse Resp BP Pulse Ox 98.5 F 66 18 146/93 97 02/07/17 12:00 02/07/17 12:00 02/07/17 12:00 02/07/17 12:00 02/07/17 12:00 Laboratory Results - last 24 hr 02/05/17 02/07/17 02/07/17 13:30 06:40 06:40 WBC 12.0 H RBC 3.43 L Hgb 11.1 Hct 33.9 MCV 98.6 H MCH 32.2 MCHC 32.7 RDW 15.4 Plt Count 193 MPV 6.9 L Sodium 134 L Potassium 3.9 Chloride 96 L Carbon Dioxide 22 D Anion Gap 16 BUN 33 H Creatinine 9.5 H* D Random Glucose 72 L Calcium 8.6 Phosphorus 3.6 Hep A IgM Ab Confirm Negative Hepatitis A Ab Total Positive H Hep Bs Antigen Negative Hep Bs Antibody Reactive Hep B Core Total Ab Negative OBJECTIVE: NAD , AAOx3. CV: RRR, no MRG Lungs : fine crackles at R side, half way down ( improved ) . No wheezing. Abd: soft, ND, mild discomfort in RLQ . nl BS Ext: no edema over LE ASSESSMENT AND PLAN: 56 y/o unfortunate lady with h/o HTN, HLP, ESRD on HD, HIV and other medical problems who presented from PCP office with a diagnosis of PNA 1- CAP: leukocytosis improved . - Cont Ceftriaxone and azitho day 3 - follow blood cx . - Urine legionella pending 2- ESRD: hyperkalemiar resolved . - HD per schedule TTS - cont to monitor electrolytes 3- HTN: cont cardizem and losartan 4-Twitching and jerking movements : resolved. head CT neg. probably was side effects of abilify . cont klonopin 5- H/o Substance abuse: cont methadone 6- HIV: cont meds. Dispo : HLOC Overall improved . Anticipate dc in 1-2 days Visit type - Emergency Visit Emergency Visit: Yes ED Registration Date: 02/04/17 Care time: The patient presented to the Emergency Department on the above date and was hospitalized for further evaluation of their emergent condition. - New Patient This patient is new to me today: No - Critical Care Critical Care patient: No
[2017-02-07] MEDS: ZOLPIDEM TARTRATE 5 MG TABLET PO PRN (21:47)
[2017-02-08] MEDS: METHADONE HCL 40 MG DISPERSABLE TABLET PO SCH (05:55)
[2017-02-08] MEDS: HEPARIN NA (PORCINE) 5,000 UNITS/ML 1ML VIAL SQ SCH ×4 (05:58→22:12)
[2017-02-08] MEDS: clonazePAM 0.5 MG TABLET PO SCH (06:12)
[2017-02-08] MEDS ORDERED: PT OWN MED DRAWER 7, Y5N ONE (09:45)
--- NOTE | 2017-02-08 09:53 | EKG ---
Test Reason : Blood Pressure : / mmHG Vent. Rate : 054 BPM Atrial Rate : 054 BPM P-R Int : 220 ms QRS Dur : 102 ms QT Int : 458 ms P-R-T Axes : 066 014 000 degrees QTc Int : 434 ms SINUS BRADYCARDIA WITH 1ST DEGREE A-V BLOCK POSSIBLE LEFT ATRIAL ENLARGEMENT BORDERLINE ECG WHEN COMPARED WITH ECG OF 05-FEB-2017 10:57, NONSPECIFIC T WAVE ABNORMALITY NOW EVIDENT IN ANTERIOR LEADS Confirmed by SAMIRA RENNER, IGNACIO ([id number]) on 02/08/2017 9:53:23 AM Referred By: Yesy SANTO Confirmed By:IGNACIO HOGAN MD
[2017-02-08] MEDS: ABACAVIR SULFATE 300 MG TABLET PO SCH ×2 (09:54→21:53)
[2017-02-08] MEDS: RALTEGRAVIR POTASSIUM 400 MG TAB PO SCH ×2 (09:54→21:53)
[2017-02-08] MEDS: RITONAVIR/LOPINAVIR 50MG/200MG 1 COMBO TABLET PO SCH ×2 (09:54→21:53)
[2017-02-08] MEDS: LOSARTAN POTASSIUM 50 MG TABLET (FP) PO SCH (09:54)
--- NOTE | 2017-02-08 09:54 | PN ---
Progress Note (short form) - Note Progress Note: alert still "spitting" up nightly no abdominal pain episode of diarrhea yesterday no diarrhea today Vital Signs Period Temp Pulse Resp BP Sys/Curry Pulse Ox Last 24 Hr 97.8 F-98.5 F 55-73 18-20 109-159/75-93 97-97 cor-rrr lungs crackles right base abd soft,nt ext no edema CBC, BMP 02/07/17 06:40 02/07/17 06:40 Microbiology 02/07/17 06:30 Serum Legionella Serology - Preliminary 02/04/17 12:13 Blood - Peripheral Venous Blood Culture - Preliminary NO GROWTH OBTAINED AFTER 72 HOURS, INCUBATION TO CONTINUE FOR 2 DAYS. 02/04/17 12:00 Blood - Peripheral Venous Blood Culture - Preliminary NO GROWTH OBTAINED AFTER 72 HOURS, INCUBATION TO CONTINUE FOR 2 DAYS. 02/04/17 13:05 Sputum - Expectorated Gram Stain - Final 02/04/17 13:05 Sputum - Expectorated Sputum Culture - Final NORMAL RESPIRATORY ARNALDO head ct no acute changes a/p RLL pneumonia continue rocephin/zithromax for CAP day #4 antiibotics clinically improved ?d/c home in am hiv- stable- continue ART esrd/hd- dialysis per renal hep c htn Problem List - Problems (1) Pneumonia Code(s): J18.9 - PNEUMONIA, UNSPECIFIED ORGANISM Qualifiers: Pneumonia type: due to unspecified organism Laterality: right Lung location: lower lobe of lung Qualified Code(s): J18.1 - Lobar pneumonia, unspecified organism (2) HIV (human immunodeficiency virus infection) Code(s): Z21 - ASYMPTOMATIC HUMAN IMMUNODEFICIENCY VIRUS INFECTION STATUS (3) ESRD (end stage renal disease) Code(s): N18.6 - END STAGE RENAL DISEASE
[2017-02-08] MEDS: CEFTRIAXONE 2 GM in DEXTROSE 5%-WATER - 100 ML IVPB SCH (09:55)
[2017-02-08] MEDS: CINACALCET HCL 30 MG TAB (FP) PO SCH (09:57)
[2017-02-08] MEDS: AZITHROMYCIN IVPB 250 MG in DEXTROSE 5%-WATER - 250 ML IVPB SCH (10:40)
--- NOTE | 2017-02-08 11:34 | PN ---
Progress Note, Physician Chief Complaint: The patient seen in her room. Says she is feeling tired. No chest pain. No Shortness of breath. Had uneventful HD yesterday. - Current Medication List Current Medications: Active Medications Abacavir Sulfate (Ziagen -) 300 mg PO BID ON LICENSE OF [facility] Last Admin: 02/08/17 09:54 Dose: 300 mg Acetaminophen (Tylenol -) 650 mg PO Q4H PRN PRN Reason: FEVER OR PAIN Acetaminophen (Tylenol -) 325 mg PO BID PRN Last Admin: 02/07/17 12:20 Dose: 325 mg Cinacalcet (Sensipar -) 30 mg PO DAILY ON [facility] OF [facility] Last Admin: 02/08/17 09:57 Dose: 30 mg Clonazepam (Klonopin -) 0.5 mg PO AM [facility] Last Admin: 02/08/17 06:12 Dose: 0.5 mg Diltiazem HCl (Cardizem Cd -) 120 mg PO DAILY [facility] Last Admin: 02/08/17 09:54 Dose: 120 mg Heparin Sodium (Porcine) (Heparin -) 5,000 unit SQ TID ON [facility] Last Admin: 02/08/17 05:58 Dose: Not Given Ceftriaxone Sodium 2 gm/ (Dextrose) 100 mls @ 200 mls/hr IVPB DAILY [facility] Last Admin: 02/08/17 09:55 Dose: 200 mls/hr Azithromycin 250 mg/ Dextrose 250 mls @ 250 mls/hr IVPB DAILY [facility] Last Admin: 02/08/17 10:40 Dose: 250 mls/hr Lopinavir/Ritonavir (Kaletra 200mg/50mg -) 2 tablet PO BID [facility] Last Admin: 02/08/17 09:54 Dose: 2 tablet Losartan Potassium (Cozaar -) 50 mg PO DAILY [facility] Last Admin: 02/08/17 09:54 Dose: 50 mg Methadone HCl (Dolophine -) 80 mg PO DAILY@0600 [facility] Last Admin: 02/08/17 05:55 Dose: 80 mg Oxycodone HCl (Roxicodone -) 10 mg PO BID PRN Last Admin: 02/07/17 23:40 Dose: 10 mg Raltegravir (Isentress -) 400 mg PO BID ON [facility] Last Admin: 02/08/17 09:54 Dose: 400 mg Zolpidem Tartrate (Ambien -) 5 mg PO HS PRN PRN Reason: INSOMNIA Last Admin: 02/07/17 21:47 Dose: 5 mg - Objective Vital Signs: Vital Signs Temperature 97.8 F 02/08/17 07:32 Pulse Rate 73 02/08/17 07:32 Respiratory Rate 20 02/08/17 07:32 Blood Pressure 159/89 02/08/17 07:32 O2 Sat by Pulse Oximetry (%) 97 02/07/17 21:00 Constitutional: Yes: No Distress Eyes: Yes: Conjunctiva Clear HENT: Yes: Atraumatic Neck: Yes: Supple Cardiovascular: Yes: Regular Rate and Rhythm, S1, S2 Respiratory: Yes: Hyperresonant Gastrointestinal: Yes: Normal Bowel Sounds, Soft Labs: CBC, BMP 02/07/17 06:40 02/07/17 06:40 Assessment/Plan 56 y/o female with ESRD, admitted with Acute respiratory infection ( ? Pneumonia ) Has hh/o ESRD, HIV, Hep C. Over all she has improved since admission. Few loose BMs. But afebrile. Tolerates the current regimen of ABx. Next HD in AM.If discharged tomorrow, she will come to outpatient dialysis unit for her regular HD on Wednesday. [facility]. Thank you. Lilian Albert MD
[2017-02-08 11:53] LABS: MCH 31.9 pg (25.7-33.7); MEAN CELL VOLUME 99.7 fl (80-96); MEAN PLT VOLUME 6.9 fl (7.5-11.1); PLATELET COUNT 193 K/MM3 (134-434); RDW 15.6 % (11.6-15.6); WHITE BLOOD COUNT 12.1 K/mm3 (4.0-10.0)
--- NOTE | 2017-02-08 15:28 | PN ---
Teaching Attending Note Name of Resident: Angelina Jolly ATTENDING PHYSICIAN STATEMENT I saw and evaluated the patient. I reviewed the resident's note and discussed the case with the resident. I agree with the resident's findings and plan as documented. SUBJECTIVE: No fever or chills. has no abd pain, NO N/V . minimal cough , improved . has no OZUNA or tremors or twitching OBJECTIVE: NAD, AAOx3. CV: RRR, no MRG Lungs : fine crackles at R base . No wheezing. Abd: soft,ND , NT, NL BS Ext: no edema over LE ASSESSMENT AND PLAN: 56 y/o unfortunate lady with h/o HTN, HLP, ESRD on HD, HIV and other medical problems who presented from PCP office with a diagnosis of PNA 1- CAP: leukocytosis improved and sx improved . - Cont Ceftriaxone and azitho day 4/5-7 . - blood cx neg x 96 hr - Urine legionella pending 2- ESRD: received HD yesterday - No HD today. HD scheduled tomorrow - cont to monitor electrolytes 3- HTN: cont cardizem and losartan 45- H/o Substance abuse: cont methadone 5- HIV: cont meds. Hep C : f/u as out pt Dispo : HLOC . anticipate Dc tomorrow after HD if cont to improve
--- NOTE | 2017-02-08 16:31 | PN ---
Physical Exam: SUBJECTIVE: Patient seen and examined. Pt denies fever, chills, nausea, vomiting, abdominal pain, headache, tremors/twitching. Cough improved. Pt reports 1 loose BM this morning. No events overnight. OBJECTIVE: Vital Signs Period Temp Pulse Resp BP Sys/Curry Pulse Ox Last 24 Hr 97.8 F-98.5 F 60-88 19-188 115-159/60-89 97-98 GENERAL: Awake, alert, and fully oriented, in no acute distress. LUNGS: Crackles to Right lower lung, no accessory muscle use. HEART: Regular rate and rhythm, normal S1 and S2 without murmur, rub or gallop. ABDOMEN: Soft, nontender, not distended, normoactive bowel sounds. UPPER EXTREMITIES: Warm, well-perfused. No cyanosis. No clubbing. No peripheral edema. Left fistula, normal sounding bruit with palpable thrill. LOWER EXTREMITIES: Warm, well-perfused. No calf tenderness. No peripheral edema. SKIN: Warm, dry, normal turgor, no rashes or lesions noted. Laboratory Results - last 24 hr 02/08/17 11:25 WBC 12.1 H RBC 3.60 Hgb 11.5 Hct 35.9 MCV 99.7 H MCH 31.9 MCHC 32.0 RDW 15.6 Plt Count 193 MPV 6.9 L Active Medications Generic Name Dose Route Start Last Admin Trade Name Freq PRN Reason Stop Dose Admin Abacavir Sulfate 300 mg 02/04/17 22:00 02/08/17 09:54 Ziagen - PO 300 mg BID MARY Administration Acetaminophen 650 mg 02/04/17 14:31 Tylenol - PO Q4H PRN FEVER OR PAIN Acetaminophen 325 mg 02/04/17 19:06 02/07/17 12:20 Tylenol - PO 325 mg BID PRN Administration Cinacalcet 30 mg 02/07/17 10:00 02/08/17 09:57 Sensipar - PO 30 mg DAILY MARY Administration Clonazepam 0.5 mg 02/07/17 07:00 02/08/17 06:12 Klonopin - PO 0.5 mg AM MARY Administration Diltiazem HCl 120 mg 02/05/17 10:00 02/08/17 09:54 Cardizem Cd - PO 120 mg DAILY MARY Administration Heparin Sodium (Porcine) 5,000 unit 02/04/17 22:30 11/20/17 14:32 Heparin - SQ Not Given TID MARY Ceftriaxone Sodium 2 gm/ 100 mls @ 200 mls/hr 02/06/17 10:00 02/08/17 09:55 Dextrose IVPB 200 mls/hr DAILY MARY Administration Azithromycin 250 mg/ Dextrose 250 mls @ 250 mls/hr 02/07/17 10:00 02/08/17 10 :40 IVPB 250 mls/hr DAILY MARY Administration Lopinavir/Ritonavir 2 tablet 02/04/17 22:00 02/08/17 09:54 Kaletra 200mg/50mg - PO 2 tablet BID MARY Administration Losartan Potassium 50 mg 02/07/17 10:00 02/08/17 09:54 Cozaar - PO 50 mg DAILY MARY Administration Methadone HCl 80 mg 02/05/17 11:00 02/08/17 05:55 Dolophine - PO 80 mg DAILY@0600 MARY Administration Oxycodone HCl 10 mg 02/04/17 19:07 02/07/17 23:40 Roxicodone - PO 10 mg BID PRN Administration Raltegravir 400 mg 02/04/17 22:00 02/08/17 09:54 Isentress - PO 400 mg BID MARY Administration Zolpidem Tartrate 5 mg 02/04/17 17:52 02/07/17 21:47 Ambien - PO 5 mg HS PRN Administration INSOMNIA ASSESSMENT/PLAN: 56yo F with PMH of HIV (CD4 338 and Viral Load <20 on 08/27/16), ESRD (HD on MWF) , presents from PCP office with diagnosed Community Acquired Pneumonia. # CAP - ID (Dr. Sanchez) recs appreciated: - Day 4 of IV Ceftriaxone and IV Azithromycin - blood and sputum cultures (-) x 96 hrs - Tylenol prn for fever or pain - supplemental O2 prn - leukocytosis stable # ESRD - HD yesterday, HD scheduled for tomorrow - baseline Cr 8-10 per EMR - hgb at goal # htn - continue home med of Diltiazem - Losartan resumed - goal BP < 140/90 # HIV - continue home meds of Kaletra, Raltegravir, and Ziagen - follows at [facility] # polysubstance abuse - continue home med of Methadone # anxiety - continue home meds of Klonopin # FEN - Fluids: po - Electrolytes: wnl, continue to monitor - Nutrition: renal diet # DVT Prophylaxis - Heparin 5,000U SQ TID Visit type - Emergency Visit Emergency Visit: Yes ED Registration Date: 02/04/17 Care time: The patient presented to the Emergency Department on the above date and was hospitalized for further evaluation of their emergent condition. - New Patient This patient is new to me today: No - Critical Care Critical Care patient: No
[2017-02-08] MEDS: oxyCODONE HCL 5 MG TABLET PO PRN (18:05)
[2017-02-08] MEDS: ACETAMINOPHEN 325 MG TABLET (FP) PO PRN (18:06)
[2017-02-08] MEDS: ZOLPIDEM TARTRATE 5 MG TABLET PO PRN (21:52)
[2017-02-09] MEDS: HEPARIN NA (PORCINE) 5,000 UNITS/ML 1ML VIAL SQ SCH ×2 (06:10→13:32)
[2017-02-09] MEDS: METHADONE HCL 40 MG DISPERSABLE TABLET PO SCH ×2 (06:10→06:52)
[2017-02-09] MEDS: clonazePAM 0.5 MG TABLET PO SCH (06:12)
[2017-02-09 07:27] LABS: MCH 32.3 pg (25.7-33.7); MCHC 32.3 g/dl (32.0-36.0); MEAN PLT VOLUME 7.1 fl (7.5-11.1); PLATELET COUNT 192 K/MM3 (134-434); RDW 15.4 % (11.6-15.6); WHITE BLOOD COUNT 10.7 K/mm3 (4.0-10.0)
[2017-02-09 09:54] VITALS: TEMP 98.2
--- NOTE | 2017-02-09 10:17 | PN ---
Progress Note (short form) - Note Progress Note: Renal Follow up for ESRD on HD Pt seen and examined during dialysis to get 3 hour Tx BF at goal, pressures WNL BP 150/100 goal UF is 2.5L no acute complaints for possible D/c today Vital Signs Temperature 98.2 F 02/09/17 09:30 Pulse Rate 58 L 02/09/17 09:35 Respiratory Rate 18 02/09/17 09:35 Blood Pressure 148/88 02/09/17 09:35 O2 Sat by Pulse Oximetry (%) 98 02/08/17 21:00 Intake & Output 02/06/17 02/07/17 02/08/17 02/09/17 23:59 23:59 23:59 23:59 Intake Total 770 820 450 240 Balance 770 820 450 240 Weight 73.567 kg 74.559 kg NAD awake and alert RRRR CTA soft NT No LE edema CBC, BMP 02/09/17 06:00 02/07/17 06:40 Laboratory Tests 02/07/17 06:40 Calcium 8.6 Phosphorus 3.6 Current Medications Abacavir Sulfate (Ziagen -) 300 mg PO BID [facility] Last Admin: 02/08/17 21:53 Dose: 300 mg Acetaminophen (Tylenol -) 650 mg PO Q4H PRN PRN Reason: FEVER OR PAIN Acetaminophen (Tylenol -) 325 mg PO BID PRN Last Admin: 02/08/17 18:06 Dose: 325 mg Cinacalcet (Sensipar -) 30 mg PO DAILY [facility] Last Admin: 02/08/17 09:57 Dose: 30 mg Clonazepam (Klonopin -) 0.5 mg PO AM [facility] Last Admin: 02/09/17 06:12 Dose: Not Given Diltiazem HCl (Cardizem Cd -) 120 mg PO DAILY [facility] Last Admin: 02/08/17 09:54 Dose: 120 mg Heparin Sodium (Porcine) (Heparin -) 5,000 unit SQ TID [facility] Last Admin: 02/09/17 06:10 Dose: Not Given Ceftriaxone Sodium 2 gm/ (Dextrose) 100 mls @ 200 mls/hr IVPB DAILY [facility] Last Admin: 02/08/17 09:55 Dose: 200 mls/hr Azithromycin 250 mg/ Dextrose 250 mls @ 250 mls/hr IVPB DAILY [facility] Last Admin: 11/20/17 10:40 Dose: 250 mls/hr Lopinavir/Ritonavir (Kaletra 200mg/50mg -) 2 tablet PO BID [facility] Last Admin: 02/08/17 21:53 Dose: 2 tablet Losartan Potassium (Cozaar -) 50 mg PO DAILY [facility] Last Admin: 02/08/17 09:54 Dose: 50 mg Methadone HCl (Dolophine -) 80 mg PO DAILY@0600 [facility] Last Admin: 02/09/17 06:52 Dose: 80 mg Oxycodone HCl (Roxicodone -) 10 mg PO BID PRN Last Admin: 02/08/17 18:05 Dose: 10 mg Raltegravir (Isentress -) 400 mg PO BID [facility] Last Admin: 02/08/17 21:53 Dose: 400 mg Zolpidem Tartrate (Ambien -) 5 mg PO HS PRN PRN Reason: INSOMNIA Last Admin: 02/08/17 21:52 Dose: 5 mg 56 year old woman with PMHx of ESRD on HD (MWF), Hepatitis C, HIV who presented with cough and admitted with PNA #PNA on ceftiriaxone/zithromax ID follow up #ESRD on HD tolerating dialysis well today to resume outpatient HD with abridged Tx tomorrow #Hypertension Continue Losartan goal BP < 140/90 #CKD related Anemia hgb at goal #HIV/Hep C anti-virals as per ID supportive care #Renal osteodystrophy continue sensipar trend phos and ca levels John Cheung DO Problem List - Problems (1) Pneumonia Code(s): J18.9 - PNEUMONIA, UNSPECIFIED ORGANISM Qualifiers: Pneumonia type: due to unspecified organism Laterality: right Lung location: lower lobe of lung Qualified Code(s): J18.1 - Lobar pneumonia, unspecified organism (2) ESRD (end stage renal disease) Code(s): N18.6 - END STAGE RENAL DISEASE (3) HIV (human immunodeficiency virus infection) Code(s): Z21 - ASYMPTOMATIC HUMAN IMMUNODEFICIENCY VIRUS INFECTION STATUS (4) HTN (hypertension) Code(s): I10 - ESSENTIAL (PRIMARY) HYPERTENSION Qualifiers: Hypertension type: essential hypertension Qualified Code(s): I10 - Essential (primary) hypertension
--- NOTE | 2017-02-09 10:37 | PN ---
Progress Note (short form) - Note Progress Note: alert feels well no complaints on HD Vital Signs Period Temp Pulse Resp BP Sys/Curry Pulse Ox Last 24 Hr 97.4 F-98.3 F 58-88 18-20 142-158/75-99 98 cor-rrr lungs minimal crackles right base abd soft,nt ext no edema CBC, BMP 02/09/17 06:00 02/07/17 06:40 Microbiology 02/04/17 12:13 Blood - Peripheral Venous Blood Culture - Preliminary NO GROWTH OBTAINED AFTER 96 HOURS, INCUBATION TO CONTINUE FOR 1 DAYS. 02/04/17 12:00 Blood - Peripheral Venous Blood Culture - Preliminary NO GROWTH OBTAINED AFTER 96 HOURS, INCUBATION TO CONTINUE FOR 1 DAYS. 02/07/17 06:30 Serum Legionella Serology - Preliminary 02/04/17 13:05 Sputum - Expectorated Gram Stain - Final 02/04/17 13:05 Sputum - Expectorated Sputum Culture - Final NORMAL RESPIRATORY ARNALDO head ct no acute changes a/p RLL pneumonia day #5 ceftriaxone/zithromax clinically improved no objection to d/c home today change to ceftin 500 mg daily for 5 days to start tomorrow hiv- stable- continue ART esrd/hd- dialysis per renal hep c htn she can f/u with me at the [facility] next week please ask her to call and make appt Problem List - Problems (1) Pneumonia Code(s): J18.9 - PNEUMONIA, UNSPECIFIED ORGANISM Qualifiers: Pneumonia type: due to unspecified organism Laterality: right Lung location: lower lobe of lung Qualified Code(s): J18.1 - Lobar pneumonia, unspecified organism (2) HIV (human immunodeficiency virus infection) Code(s): Z21 - ASYMPTOMATIC HUMAN IMMUNODEFICIENCY VIRUS INFECTION STATUS (3) ESRD (end stage renal disease) Code(s): N18.6 - END STAGE RENAL DISEASE
[2017-02-09 13:11] VITALS: BP 146/93; PULSE 69
--- NOTE | 2017-02-09 13:14 | PN ---
Teaching Attending Note Name of Resident: Angelina Jolly ATTENDING PHYSICIAN STATEMENT I saw and evaluated the patient. I reviewed the resident's note and discussed the case with the resident. I agree with the resident's findings and plan as documented. SUBJECTIVE: No fever or chills. feels better , denies SOB , cough , N/V or abd pain . no tremors OBJECTIVE: NAD, AAOx3. CV: RRR, no MRG Lungs : fine crackles at R base . No wheezing. Abd: soft,ND , NT, NL BS Ext: no edema over LE ASSESSMENT AND PLAN: 56 y/o unfortunate lady with h/o HTN, HLP, ESRD on HD, HIV and other medical problems who presented from PCP office with a diagnosis of PNA 1- CAP:improved - switch to oral ceftin today x 5 more days - Urine legionella still pending 2- ESRD: received today . will have another short session tomorrow then will resume her schedule 3- HTN: cont cardizem and losartan 45- H/o Substance abuse: cont methadone 5- HIV: cont meds. Hep C : f/u as out pt DC home today. f/u with PCP , GI for hep C, and renal
[2017-02-09] MEDS ORDERED: clonazePAM 0.5 MG TABLET PO ONE (13:20)
[2017-02-09] MEDS ORDERED: PT OWN MED DRAWER 7, Y5N ONE (13:28)
[2017-02-09] MEDS: CINACALCET HCL 30 MG TAB (FP) PO SCH (13:30)
[2017-02-09] MEDS: LOSARTAN POTASSIUM 50 MG TABLET (FP) PO SCH (13:30)
[2017-02-09] MEDS: ABACAVIR SULFATE 300 MG TABLET PO SCH (13:30)
[2017-02-09] MEDS: RITONAVIR/LOPINAVIR 50MG/200MG 1 COMBO TABLET PO SCH (13:31)
[2017-02-09] MEDS: RALTEGRAVIR POTASSIUM 400 MG TAB PO SCH (13:31)
[2017-02-09] MEDS: CEFTRIAXONE 2 GM in DEXTROSE 5%-WATER - 100 ML IVPB SCH (13:32)
[2017-02-09] MEDS: AZITHROMYCIN IVPB 250 MG in DEXTROSE 5%-WATER - 250 ML IVPB SCH (13:32)
--- NOTE | 2017-02-09 14:55 | DS ---
Physical Exam: SUBJECTIVE: Patient seen and examined. Pt denies fever, chills, sob, cough, nausea, vomiting, abdominal pain, chest pain, diarrhea. Pt reports feeling better today and looking forward to going home. No events overnight. OBJECTIVE: Vital Signs Period Temp Pulse Resp BP Sys/Curry Pulse Ox Last 24 Hr 97.4 F-98.3 F 54-88 18-20 141-158/75-103 98-98 PHYSICAL EXAM GENERAL: The patient is awake, alert, and fully oriented, in no acute distress. HEAD: Normal with no signs of trauma. EYES: Extraocular movements intact, sclera anicteric, conjunctiva clear. ENT: Moist mucous membranes. NECK: Trachea midline, supple. LUNGS: Fine crackles to Right lower lung appreciated. No accessory muscle use. HEART: Regular rate and rhythm, S1, S2 without murmur, rub or gallop. ABDOMEN: Soft, nontender, nondistended, normoactive bowel sounds. EXTREMITIES: Warm, well-perfused, no edema. NEUROLOGICAL: Cranial nerves II through XII grossly intact. Normal speech, gait not observed. PSYCH: Normal mood, normal affect. SKIN: Warm, dry, normal turgor, no rashes or lesions noted. LABS Laboratory Results - last 24 hr 02/09/17 06:00 WBC 10.7 H RBC 3.87 Hgb 12.5 Hct 38.8 MCV 100.0 H MCH 32.3 MCHC 32.3 RDW 15.4 Plt Count 192 MPV 7.1 L HOSPITAL COURSE: Date of Admission:02/04/17 Date of Discharge: 02/09/17 56yo F with PMH of HIV (CD4 338 and Viral Load <20 on 08/27/16), ESRD (HD on MWF) , presents from PCP office with diagnosed Community Acquired Pneumonia. Pt received 5 days of IV Ceftriaxone and IV Azithromycin. Pt D/Tomas home with 5 more days of Ceftin po QD. Pt received hemodialysis regularly during hospitalization and should continue upon D/C. Htn controlled with both Diltiazem 120mg daily and Losartan 50mg daily. 02/04/17 blood cultures (-) x 5 days 02/04/17 gram stain and sputum culture (-) 02/05/17 CXR -> persistent atelectatic changes and infiltrates to Right lower lung and interval mild atelectatic changes and possible infiltrates to Left lower lung. 02/06/[address] -> mild volume loss and chronic microvascular ischemic changes without evidence of acute intracranial pathology. Pt stable for discharge home. Minutes to complete discharge: 35 Discharge Summary Reason For Visit: PNEUMONIA Condition: Improved - Instructions Diet, Activity, Other Instructions: You were treated for community acquired pneumonia with IV antibiotics for 5 days. Continue your home medications as prescribed. Take your antibiotic, Ceftin, once a day for 5 more days. We added Losartan ( script was sent to your pharmacy ) for your blood pressure. HIV medications and Methodone as directed. Since admission your received dialysis on Wednesday 02/07 and Friday 02/09. Continue your dialysis as previously scheduled on wednesday . Please follow-up at the [facility] in 1 week for post-hospital evaluation and follow-up of your chronic conditions. Make an appointment to follow-up with your Primary Care Doctor (Dr. Sanchez) in 1 week. Make an appointment to follow-up with your Heavy Media Operator (Dr. Laguerre) in 1 week. Follow-up with Dr. Moore (your GastroIntestinal Doctor) to treat your Hepatitis C. If you develop trouble breathing, chest pain, worsening diarrhea, blood in your stool or any new symptoms return to the hospital. Referrals: Isha Sanchez MD [Staff Physician] - 1 Week Mariia Laguerre MD [Staff Physician] - 1 Week Mickey Moore MD [Staff Physician] - 1 Month Disposition: HOME - Home Medications Comprehensive Discharge Medication List: Ambulatory Orders Methadone [Dolophine -] 80 mg PO DAILY 06/18/15 Lopinavir/Ritonavir [Kaletra 200-50 mg Tablet] 2 each PO BID #120 tablet Abacavir Sulfate [Ziagen -] 300 mg PO BID #60 tablet 01/14/17 Raltegravir [Isentress] 400 mg PO BID #60 tab 01/14/17 Diltiazem HCl [Diltiazem 24Hr Cd] 120 mg PO DAILY #30 cap.er.24h 01/15/17 Oxycodone HCl/Acetaminophen [Percocet 10-325 mg Tablet] 1 each PO BID PRN #60 tablet MDD 2 01/18/17 Zolpidem Tartrate [Ambien] 5 mg PO HS PRN MDD 1 02/04/17 Cefuroxime Axetil [Ceftin -] 500 mg PO DAILY #5 tablet 02/09/17 Cinacalcet HCl [Sensipar -] 30 mg PO DAILY #0 tab 02/09/17 Clonazepam [Klonopin -] 0.5 mg PO DAILY PRN #1 tablet MDD 0.5 mg 02/09/17 Losartan Potassium 50 mg PO DAILY #30 tablet 02/09/17 This patient is new to me today: No Emergency Visit: Yes ED Registration Date: 02/04/17 Care time: The patient presented to the Emergency Department on the above date and was hospitalized for further evaluation of their emergent condition. Critical Care patient: No - Discharge Referral Referred to [facility] No
--- NOTE | 2017-02-10 12:14 | EKG ---
Test Reason : Blood Pressure : / mmHG Vent. Rate : 057 BPM Atrial Rate : 057 BPM P-R Int : 216 ms QRS Dur : 108 ms QT Int : 426 ms P-R-T Axes : 062 006 -16 degrees QTc Int : 414 ms SINUS BRADYCARDIA WITH 1ST DEGREE A-V BLOCK POSSIBLE LEFT ATRIAL ENLARGEMENT BORDERLINE ECG WHEN COMPARED WITH ECG OF 04-FEB-2017 12:20, BORDERLINE CRITERIA FOR INFERIOR INFARCT ARE NO LONGER PRESENT INVERTED T WAVES HAVE REPLACED NONSPECIFIC T WAVE ABNORMALITY IN INFERIOR LEADS NONSPECIFIC T WAVE ABNORMALITY NO LONGER EVIDENT IN ANTERIOR LEADS Confirmed by IGNACIO HOGAN MD ([id number]) on 02/10/2017 12:14:13 PM Referred By: Confirmed By:IGNACIO HOGAN MD
[2017-02-10 14:18] LABS: HCV LOG 10 7.815 (.); HCV RNA IU/ML 65269000 IU/mL (.)
== END 2017-02-09 13:30 | disposition home or self-care (01) | DRG 139 ==
LOC: JER 11:07 → JERBED 13:58 → J8W 16:09
PROVIDERS: ADMIT Internal Medicine; ATTEND Internal Medicine
PROC: 5A1D70Z Performance of Urinary Filtration, Intermittent, Less than 6 Hours Per Day (ICD-10-PCS; principal; 2017-02-05)
DX: J18.9 Pneumonia, unspecified organism (principal); E87.5 Hyperkalemia; I12.0 Hypertensive chronic kidney disease with stage 5 chronic kidney disease or end stage renal disease; N18.6 End stage renal disease; E87.1 Hypo-osmolality and hyponatremia; E16.1 Other hypoglycemia; N25.0 Renal osteodystrophy; F11.20 Opioid dependence, uncomplicated; F14.20 Cocaine dependence, uncomplicated; F41.8 Other specified anxiety disorders; E78.5 Hyperlipidemia, unspecified; B18.2 Chronic viral hepatitis C; E87.6 Hypokalemia; D63.8 Anemia in other chronic diseases classified elsewhere; F19.10 Other psychoactive substance abuse, uncomplicated; D72.828 Other elevated white blood cell count; R25.3 Fasciculation; Z87.891 Personal history of nicotine dependence; Z21 Asymptomatic human immunodeficiency virus [HIV] infection status
CPT/HCPCS: 36415; 70450-TC; 71020-TC; 80048; 80053; 83605; 83735; 84100; 85025; 85027; 86704; 86706; 86708; 86713; 86803; 87040; 87070; 87205; 87340; 87522; 93005; 93010; 99283-25; G0480; J0475; J0885; J1644

== ENCOUNTER 2018-06-10 17:41 | Inpatient (IN) | payer OTHER ==
--- NOTE | 2018-06-10 19:01 | PDOC ---
History of Present Illness - General Chief Complaint: Cold Symptoms Stated Complaint: COLD HIGH FEVER Time Seen by Provider: 06/10/18 19:00 History Source: Patient Exam Limitations: No Limitations - History of Present Illness Initial Comments: 06/10/18 19:27 57 yo F with a hx of HTN, ESRD MWF, HIV (CD4 per Stephanie Pierre 284 with undetectable viral load), methadone management, anal cancer, and hepatitis C presents to the emergency department with cough and fever that started yesterday. Per the patient, she began having productive cough with yellow yesterday with associative fevers and chills. She felt SOB after dialysis today. Per the patient, she was around someone sick recently with URI ssx. She had advil today at 2:30 pm with a home reading temperature of 103 F with advisement to present to the emergency department. Denies the following: nausea , vomiting, chest pain, abdominal pain, ears/nose/throat pain, visual changes, headaches, dysuria, hematuria, diarrhea, hematochezia, and leg pain/swelling. No recent travels and did get her flu vaccine this year. Shx: AV fistula Allergies: NKDA Social: Denies tobacco, alcohol, and substance abuse 06/10/18 19:34 06/10/18 19:39 Past History - Past Medical History Allergies/Adverse Reactions: Allergies Allergy/AdvReac Type Severity Reaction Status Date / Time baclofen AdvReac Intermediate jumpy Verified 06/10/18 17:57 gabapentin AdvReac Intermediate drowsy Verified 06/10/18 17:57 Home Medications: Ambulatory Orders Methadone [Dolophine -] 80 mg PO DAILY@0600 06/18/15 Doxercalciferol 1 mcg PO DAILY #30 capsule 01/20/18 Folic Acid/Vit B Complex and C [Renal Vitamin Tablet] 0.8 mg PO DAILY #30 tablet 01/20/18 Abacavir Sulfate [Ziagen -] 300 mg PO BID #60 tablet 03/03/18 Lopinavir/Ritonavir [Kaletra 200-50 mg Tablet] 2 each PO BID #120 tablet Raltegravir [Isentress] 400 mg PO BID #60 tab 03/03/18 Bacitracin - [Bacitracin Topical Ointment -] 1 applic TP BID #1 tube 05/27/18 Lidocaine HCl/Menthol [Icy Hot 4%-1% Cream] 76.5 gm TP TID PRN #2 tube 06/02/18 Losartan Potassium 50 mg PO DAILY #30 tablet 06/09/18 Zolpidem Tartrate [Ambien] 5 mg PO HS PRN #30 tablet MDD 1 06/09/18 clonazePAM [Klonopin -] 0.5 mg PO DAILY #30 tablet MDD 1 06/09/18 Cefuroxime Axetil [Ceftin -] 250 mg PO DAILY #7 tablet 06/13/18 Oseltamivir Phosphate [Tamiflu -] 30 mg PO DAILY #1 capsule 06/13/18 Anemia: No Asthma: No Cancer: Yes (ANAL WARTS/EARLY CANCER-treated) Cardiac Disorders: No CVA: No COPD: No CHF: No Dementia: No Diabetes: No Dialysis: Yes (M-W-F) GI Disorders: No Disorders: No HTN: Yes Hypercholesterolemia: Yes Liver Disease: Yes (Hep C past 6 yrs - untreated) Psychiatric Problems: Yes (Anxiety) Seizures: No Thyroid Disease: No - Surgical History Abdominal Surgery: No Appendectomy: No Cardiac Surgery: No Cholecystectomy: No Lung Surgery: No Neurologic Surgery: No Orthopedic Surgery: No - Suicide/Smoking/Psychosocial Hx Smoking Status: Yes Smoking History: Former smoker Have you smoked in the past 12 months: No Number of Cigarettes Smoked Daily: 20 If you are a former smoker, when did you quit?: 2014 Cigars Per Day: 0 Information on smoking cessation initiated: No 'Breaking Loose' booklet given: 06/19/13 Hx Alcohol Use: No Drug/Substance Use Hx: No Substance Use Type: Cocaine, Heroin Hx Substance Use Treatment: Yes (hx detox, rehab, now [facility]) Review of Systems - Review of Systems Able to Perform ROS?: Yes Is the patient limited Haitian proficient: No Constitutional: Yes: Fever. No: Chills, Diaphoresis, Weakness HEENTM: No: Eye Pain, Blurred Vision, Recent change in vision, Ear Pain, Nose Pain, Throat Pain, Mouth Pain Respiratory: Yes: Cough, Shortness of Breath. No: Hemoptysis Cardiac (ROS): No: Chest Pain, Lightheadedness, Palpitations, Syncope ABD/GI: No: Constipated, Diarrhea, Nausea, Poor Appetite, Poor Fluid Intake, Rectal Bleeding, Vomiting, Tarry Stools : No: Burning, Dysuria, Hematuria, Urgency Musculoskeletal: No: Back Pain, Joint Pain, Neck Pain Integumentary: No: Bruising, Erythema, Rash Neurological: No: Headache, Numbness, Tingling, Tremors, Dizziness Psychiatric: No: Change in Appetite Endocrine: No: Unexplained Weight Gain Hematologic/Lymphatic: No: Anemia *Physical Exam - Vital Signs Last Vital Signs Temp Pulse Resp BP Pulse Ox 99.7 F H 86 18 107/57 L 98 06/10/18 17:59 06/10/18 17:59 06/10/18 17:59 06/10/18 17:59 06/10/18 17:59 - Physical Exam General Appearance: Yes: Nourished, Appropriately Dressed. No: Apparent Distress, Intoxicated HEENT: positive: EOMI, ZAHRA, Normal Voice, Symmetrical, TMs Normal, Pharyngeal Erythema, Hearing Grossly Normal. negative: Pharynx Normal, Pale Conjunctivae, Scleral Icterus (R), Scleral Icterus (L), Muffled/Hoarse voice, Tonsillar Exudate, Tonsillar Erythema, Nasal Congestion, Rhinorrhea, Excessive drooling, Thrush Neck: positive: Trachea midline, Supple, Lymphadenopathy (L). negative: Tender , Lymphadenopathy (R), Tender lateral, Tender midline Respiratory/Chest: positive: Other (right base with crackles and wheezes. Left base with wheezes. ). negative: Chest Tender, Lungs Clear, Normal Breath Sounds , Respiratory Distress, Accessory Muscle Use Cardiovascular: positive: Regular Rhythm, Regular Rate, S1, S2. negative: Systolic Murmur Gastrointestinal/Abdominal: positive: Normal Bowel Sounds, Flat, Soft. negative : Tender, Guarding, Rebound Lymphatic: positive: Adenopathy Musculoskeletal: positive: Normal Inspection. negative: CVA Tenderness, Vertebral Tenderness Extremity: positive: Normal Capillary Refill, Normal Inspection, Normal Range of Motion. negative: Tender, Swelling, Calf Tenderness Integumentary: positive: Normal Color, Dry, Warm. negative: Swelling, Ecchymosis Neurologic: positive: satellite specialist II-XII NML intact, Fully Oriented, Alert, Normal Mood/ Affect, Normal Response, Motor Strength 5/5. negative: EOM Palsy, Facial Droop , Sensory Deficit Moderate Sedation - Procedure Monitoring Vital Signs: Procedure Monitoring Vital Signs Temperature 99.7 F H 06/10/18 17:59 Pulse Rate 86 06/10/18 17:59 Respiratory Rate 18 06/10/18 17:59 Blood Pressure 107/57 L 06/10/18 17:59 O2 Sat by Pulse Oximetry (%) 98 06/10/18 17:59 Heart Score/ECG Review - ECG Intrepretation Comment:: ventricular rate is 91 bpm, OR is 196 ms, QRS is 88 ms, QTc is [address] no [address] elevation or depression. ED Treatment Course - LABORATORY CBC & Chemistry Diagram: 06/13/18 07:10 06/13/18 07:10 Medical Decision Making - Medical Decision Making 06/10/18 19:38 57 yo F with a hx of HTN, ESRD MWF, HIV (CD4 per Stephanie Pierre 284 with undetectable viral load), methadone management, anal cancer, and hepatitis C presents to the emergency department with cough and fever that started yesterday. Initial vitals: Initial Vital Signs Temp Pulse Resp BP Pulse Ox 99.7 F H 86 18 107/57 L 98 06/10/18 17:59 06/10/18 17:59 06/10/18 17:59 06/10/18 17:59 06/10/18 17:59 Work up: ddx: influenza vs infectious etiology (PNA vs UTI vs Strep throat). Patient has crackles in the right lung on auscultation,. Orders: influenza, throat culture, cbc, cmp, UA, urine culture, CXR Interventions: IV tylenol, IV NS. labs show WBC of 13.8, bands of 22, influenza A positive, elevated creatinine, CXR within normal limits CT chest shows atelectasis, possible early PNA; started on azithro, vancomycin, and zosyn Will admit for further management to hospitalist. Dispo: Admit *DC/Admit/Observation/Transfer Diagnosis at time of Disposition: HIV (human immunodeficiency virus infection), Pneumonia - Referrals - Patient Instructions - Post Discharge Activity
[2018-06-10] MEDS ORDERED: ACETAMINOPHEN 1000 MG/100 ML VIAL (NON FORMULARY) IVPB ONE (19:23)
[2018-06-10] MEDS ORDERED: SODIUM CHLORIDE 1,000 ML IV STA (19:23)
[2018-06-10] MEDS ORDERED: SODIUM CHLORIDE 500 ML IV STA (19:23)
[2018-06-10] MEDS ORDERED: ALBUTEROL SO4 2.5/IPRATROPIUM 0.5 INH SOL 3 ML VIAL.NEB. NEB ONE ×2 (19:36→20:31)
[2018-06-10] MEDS ORDERED: ACETAMINOPHEN INJECTION 100 ML IVPB ONE (20:32)
--- NOTE | 2018-06-10 20:32 | PDOC ---
Attending Attestation - Resident Resident Name: Taurus Ornelas - ED Attending Attestation I have performed the following: I have examined & evaluated the patient, The case was reviewed & discussed with the resident, I agree w/resident's findings & plan, Exceptions are as noted - HPI HPI: 06/11/18 02:08 The patient is a 57 year old female, with a significant PMH of hypertension, ESRD MWF, HIV (CD4 per Stephanie Pierre 284 with undetectable viral load), methadone management, anal cancer, and hepatitis C, who presents to the emergency department with one day of productive cough with yellow sputum and fever. The patient states she had a measured temperature of 103F and took Advil around 2: 30 pm this afternoon. The patient also states she experienced shortness of breath after dialysis (completed in full) earlier today. The patient reports recent sick contact with upper respiratory symptoms. As per patients partner, the patient appeared slightly confused today. The patient states she did receive a flu shot this season. The patient denies chest pain, palpitations, headache and dizziness. Denies nausea, vomit, diarrhea and constipation. Denies dysuria, frequency, urgency and hematuria. Allergies: baclofen, gabapentin Past surgical history: AV fistula Social history: No reported PCP: Dr Sanchez - Physicial Exam PE: 06/11/18 02:09 agree with resident exam - Medical Decision Making 06/11/18 02:09 57yo F hx HIV presents to the ED with high fever, cough, bodyaches. Found to be flu+, leukcytosis to 14 with 22% bandemia. Covered wtih Vanc/Zosyn/Azithro CXR clear but clinically pt with prod cough, crackles on exam CT chest with possible early infiltrate Pt covered for PNA Admitted for further mgmt Case discussed in detail with admitting physician including history, physical exam and ancillary studies. Admitting physician has assumed care for the patient, will follow all pending diagnostics and will complete the evaluation and treatment. Heart Score/ECG Review #1 06/11/18 02:16 Twelve-lead EKG was performed and reviewed by me. Normal sinus rhythm, rate 1. Normal axis. No ELIANA
[2018-06-10 21:36] LABS: BASO % 0.6 % (0-2.0); EOS % 0.2 % (0-4.5); HEMATOCRIT 32.9 % (32.4-45.2); HEMOGLOBIN 11.3 GM/dL (10.7-15.3); LYMPH % 17.8 % (8-40); MCH 35.7 pg (25.7-33.7); MCHC 34.5 g/dl (32.0-36.0); MEAN CELL VOLUME 103.5 fl (80-96); MEAN PLT VOLUME 7.7 fl (7.5-11.1); MONO % 11.6 % (3.8-10.2); NEUT % 69.8 % (42.8-82.8); PLATELET COUNT 111 K/MM3 (134-434); RBC 3.17 M/mm3 (3.60-5.2); RDW 15.7 % (11.6-15.6); WHITE BLOOD COUNT 13.8 K/mm3 (4.0-10.0)
[2018-06-10 22:04] LABS: ALBUMIN 2.7 g/dl (3.4-5.0); ALK PHOS 159 U/L (45-117); ANION GAP 9 MMOL/L (8-16); BILIRUBIN,TOTAL 0.6 mg/dL (0.2-1); BLOOD UREA NITROGEN 33 mg/dL (7-18); CALCIUM 7.8 mg/dL (8.5-10.1); CHLORIDE 105 mmol/L (98-107); CO2 23 mmol/L (21-32); CREATININE 6.8 mg/dL (0.55-1.3); GLUCOSE,RANDOM 86 mg/dL (74-106); LDH 200 U/L (84-246); POTASSIUM 4.1 mmol/L (3.5-5.1); SGOT/AST 40 U/L (15-37); SGPT/ALT 36 U/L (13-61); SODIUM 136 mmol/L (136-145); TOT PROT 7.1 g/dl (6.4-8.2)
[2018-06-10] MEDS ORDERED: OSELTAMIVIR PHOSPHATE 75 MG CAPSULE PO ONE (22:34)
[2018-06-10] MEDS ORDERED: OSELTAMIVIR PHOSPHATE 75 MG CAPSULE ONE (22:49)
[2018-06-10 23:24] LABS: PLATELET ESTIMATE SLT DECREASE
[2018-06-10] MEDS ORDERED: PIPERACILLIN/TAZOB 4.5 GM 4.5 GM in DEXTROSE 5%-WATER - 100 ML IVPB ONE (23:35)
[2018-06-10] MEDS ORDERED: VANCOMYCIN 1,000 MG in DEXTROSE 5%-WATER - 250 ML IVPB ONE (23:35)
[2018-06-10] MEDS ORDERED: AZITHROMYCIN IVPB 500 MG in DEXTROSE 5%-WATER - 250 ML IVPB ONE (23:36)
[2018-06-10] MEDS ORDERED: PIPERACILLIN/TAZOB 4.5 GM 4.5 GM/100 ML BAG IVPB ONE (23:50)
[2018-06-11] MEDS ORDERED: AZITHROMYCIN IVPB 500 MG/250 ML BAG IVPB ONE (00:16)
[2018-06-11] MEDS ORDERED: VANCOMYCIN 1 GRAM (PRE-DOCKED) 1,000 MG/250 ML BAG IVPB ONE (01:12)
--- NOTE | 2018-06-11 01:43 | HP ---
CHIEF COMPLAINT: PCP: Dr. Sanchez GI: Dr. Moore Renal: Dr. Laguerre HISTORY OF PRESENT ILLNESS: 57 yo F with a hx of HTN, ESRD MWF, HIV (CD4 per Stephanie Pierre 284 with undetectable viral load), methadone management, anal cancer, and hepatitis C presents to the emergency department with cough and fever x1d. Pt states she began having productive cough with yellow sputum yesterday with associative fevers and chills. She felt SOB after dialysis today. Per the patient, she was around someone sick recently with URI ssx. She had advil today at 2:30 pm with a home reading temperature of 103 F with advisement to present to the emergency department. Denies the following: n/v/d, bloody stools, chest pain, abdominal pain, ears/nose/throat pain, visual changes, headaches, dysuria, hematuria, diarrhea, hematochezia, and leg pain/swelling. No recent travels and did get her flu vaccine this year. ER course was notable for: (1) CXR nl, CT chest (2) 500cc NS bolus, IV tylenol, tamiflu 75mg, duoneb, zosyn, Azithromycin, vanc (3) Recent Travel: denies PAST MEDICAL HISTORY: ESRD with HD on MWF, last HD yesterday HIV Hep C - untreated htn hld anxiety anal warts (early cancer - treated) PAST SURGICAL HISTORY: AV fistula Social History: Smoking: quit 5 yrs ago, 9 pack yr hx Alcohol: denies Drugs: remote hx of crack cocaine and heroin Family History: sister - ESRD on HD Allergies baclofen Adverse Reaction (Intermediate, Verified 06/10/18 17:57) jumpy gabapentin Adverse Reaction (Intermediate, Verified 06/10/18 17:57) drowsy HOME MEDICATIONS: Home Medications Medication Instructions Recorded Methadone [Dolophine -] 80 mg PO DAILY 06/18/15 Clotrimazole [Lotrimin 1% Cream -] 1 applic TP BID #1 tube 01/06/18 Doxercalciferol 1 mcg PO DAILY #30 capsule 01/20/18 Folic Acid/Vit B Complex and C 0.8 mg PO DAILY #30 tablet 01/20/18 [Renal Vitamin Tablet] Abacavir Sulfate [Ziagen -] 300 mg PO BID #60 tablet 03/03/18 Lopinavir/Ritonavir [Kaletra 2 each PO BID #120 tablet 03/03/18 200-50 mg Tablet] Raltegravir [Isentress] 400 mg PO BID #60 tab 03/03/18 Bacitracin - [Bacitracin Topical 1 applic TP BID #1 tube 05/27/18 Ointment -] Hydrocortisone 1% Cream [Hytone 1% 1 applic TP BID #1 tube 05/27/18 Cream -] Lidocaine HCl/Menthol [Icy Hot 76.5 gm TP TID PRN #2 tube 06/02/18 4%-1% Cream] Oxycodone HCl/Acetaminophen 1 each PO BID PRN #60 tablet MDD 2 06/02/18 [Percocet 10-325 mg Tablet] Losartan Potassium 50 mg PO DAILY #30 tablet 06/09/18 Zolpidem Tartrate [Ambien] 5 mg PO HS PRN #30 tablet MDD 1 06/09/18 clonazePAM [Klonopin -] 0.5 mg PO DAILY #30 tablet MDD 1 06/09/18 REVIEW OF SYSTEMS as per HPI PHYSICAL EXAMINATION Vital Signs - 24 hr 06/10/18 17:59 Temperature 99.7 F H Pulse Rate 86 Respiratory 18 Rate Blood Pressure 107/57 L O2 Sat by Pulse 98 Oximetry (%) GENERAL: Awake, alert, and fully oriented, in no acute distress. HEAD: Normal with no signs of trauma. EYES: Pupils equal, round and reactive to light, extraocular movements intact, sclera anicteric, conjunctiva clear. No lid lag. EARS, NOSE, THROAT: nares patent, oropharynx clear without exudates. Moist mucous membranes. NECK: Normal range of motion, supple without lymphadenopathy, JVD, or masses. LUNGS: CTAB HEART: Regular rate and rhythm, normal S1 and S2 without murmur, rub or gallop. ABDOMEN: Soft, nontender, not distended, normoactive bowel sounds, no guarding, no rebound, no masses. MUSCULOSKELETAL: Normal range of motion at all joints. No bony deformities or tenderness. No CVA tenderness. UPPER EXTREMITIES: 2+ pulses, warm, well-perfused. No cyanosis. No clubbing. No peripheral edema. +L AV fistula LOWER EXTREMITIES: 2+ pulses, warm, well-perfused. No calf tenderness. No peripheral edema. NEUROLOGICAL: Cranial nerves II-XII intact. Normal speech. PSYCHIATRIC: Cooperative. Good eye contact. Appropriate mood and affect. SKIN: Warm, dry, normal turgor, no rashes or lesions noted, normal capillary refill. Laboratory Results - last 24 hr 06/10/18 06/10/18 06/10/18 21:09 21:20 21:20 WBC 13.8 H RBC 3.17 L Hgb 11.3 Hct 32.9 D MCV 103.5 H MCH 35.7 H MCHC 34.5 RDW 15.7 H Plt Count 111 L D MPV 7.7 D Absolute Neuts (auto) 9.6 H Neutrophils % 69.8 D Neutrophils % (Manual) 53.0 Band Neutrophils % 22.0 Lymphocytes % 17.8 D Lymphocytes % (Manual) 16.0 D Monocytes % 11.6 H Monocytes % (Manual) 7 Eosinophils % 0.2 D Eosinophils % (Manual) 0.0 D Basophils % 0.6 Basophils % (Manual) 0.0 Nucleated RBC % 0 Platelet Estimate Slt decrease Platelet Comment No clumping noted Sodium 136 Potassium 4.1 Chloride 105 Carbon Dioxide 23 Anion Gap 9 BUN 33 H Creatinine 6.8 H Creat Clearance w eGFR 6.26 Random Glucose 86 Lactic Acid 1.0 Calcium 7.8 L Total Bilirubin 0.6 AST 40 H ALT 36 Alkaline Phosphatase 159 H LD Total 200 Total Protein 7.1 Albumin 2.7 L Influenza A (Rapid) Influenza B (Rapid) Group A Strep Rapid 06/10/18 06/10/18 21:20 21:20 WBC RBC Hgb Hct MCV MCH MCHC RDW Plt Count MPV Absolute Neuts (auto) Neutrophils % Neutrophils % (Manual) Band Neutrophils % Lymphocytes % Lymphocytes % (Manual) Monocytes % Monocytes % (Manual) Eosinophils % Eosinophils % (Manual) Basophils % Basophils % (Manual) Nucleated RBC % Platelet Estimate Platelet Comment Sodium Potassium Chloride Carbon Dioxide Anion Gap BUN Creatinine Creat Clearance w eGFR Random Glucose Lactic Acid Calcium Total Bilirubin AST ALT Alkaline Phosphatase LD Total Total Protein Albumin Influenza A (Rapid) Positive A Influenza B (Rapid) Negative Group A Strep Rapid Negative Echo 2016: mild pulm HTN w/ RV pressure 30-40 ASSESSMENT/PLAN: 57 yo F with a hx of HTN, ESRD MWF, HIV (CD4 per Stephanie Pierre 285 (06/09/18) with undetectable viral load), methadone management, anal cancer, and hepatitis C p/ w cough and fever x1d in the setting of recent sick contact #Influenza A infection - pos flu test. fever 103 at home. here afebrile. + yellow productive cough. leukcytosis to 14 with 22% bandemia. -s/p 500cc NS bolus, IV tylenol, tamiflu 75, duoneb, zosyn, Azithromycin, vanc in ED -CXR nl -f/u CT chest r/o PNA -c/w tamiflu 30mg qd after HD session for 5 days -pain ctl w/ tylenol -s/p abx in ED. will hold off on further abx for now and f/u cx. If pt cont to spike fever/clinically worsens will start empiric tx for HCAP -f/u bcx, sputum cx, throat cx -strep neg -encourage PO hydration # ESRD on HD MWF - Nephrology Consult with pt's Nephrology group (Dr. Albert) - continue HD # htn - continue home meds of Losartan # HIV - CD4 285 (06/09/18) - continue home meds of Kaletra, Ziagen and Raltegravir - follows at [facility] -no need for ppx # Hep C - GI is Dr. Moore - f/u as outpatient # polysubstance abuse - continue home med of Methadone, will need to verify dose. pt says she is on 80 # anxiety - continue home meds of Klonipin # FEN - s/p 500cc bolus, c/w PO hydration - Electrolytes: hyponatremia and hyperkalemia noted, continue to monitor - Nutrition: renal diet # DVT Prophylaxis - Heparin 5,000U SQ TID Dispo obs Visit type - Emergency Visit Emergency Visit: Yes ED Registration Date: 06/11/18 Care time: The patient presented to the Emergency Department on the above date and was hospitalized for further evaluation of their emergent condition. - New Patient This patient is new to me today: Yes Date on this admission: 06/11/18 - Critical Care Critical Care patient: No
--- NOTE | 2018-06-11 02:02 | PN ---
Teaching Attending Note Name of Resident: Chucho Win ATTENDING PHYSICIAN STATEMENT I saw and evaluated the patient. I reviewed the resident's note and discussed the case with the resident. I agree with the resident's findings and plan as documented. SUBJECTIVE: OBJECTIVE: ASSESSMENT AND PLAN: 57 y/o f with ESRD, PSA on methaodne, HIV presented with 1 day of fever and chills patient stated that her temp at home was 103, associated with body aches patient was influenza A positive plan admit to observation start tamiflu monitor for signs of bacterial infection and treat the patient with hospital acquired infection c/w HIV medication methadone clinic verification
[2018-06-11 03:43] VITALS: BMI 31.2
[2018-06-11] MEDS: ACETAMINOPHEN 325 MG TABLET (FP) PO PRN ×2 (06:41→22:54)
[2018-06-11] MEDS: HEPARIN NA (PORCINE) 5,000 UNITS/ML 1ML VIAL SQ SCH ×3 (06:41→22:54)
[2018-06-11 08:02] LABS: INR 1.23 (0.83-1.09); PROTHROMBIN TIME (PATIENT) 14.6 SEC (9.7-13.0)
[2018-06-11 08:05] LABS: ACTIVATED PTT 37.5 SECONDS (25.2-36.5)
[2018-06-11 08:15] LABS: BASO % 0.2 % (0-2.0); HEMATOCRIT 32.6 % (32.4-45.2); LYMPH % 11.1 % (8-40); MCH 34.7 pg (25.7-33.7); MCHC 33.6 g/dl (32.0-36.0); MEAN CELL VOLUME 103.3 fl (80-96); MEAN PLT VOLUME 7.9 fl (7.5-11.1); MONO % 13.2 % (3.8-10.2); NEUT % 75.5 % (42.8-82.8); PLATELET COUNT 109 K/MM3 (134-434); RBC 3.16 M/mm3 (3.60-5.2); RDW 16.1 % (11.6-15.6); WHITE BLOOD COUNT 15.2 K/mm3 (4.0-10.0)
[2018-06-11 08:25] LABS: ALBUMIN 2.8 g/dl (3.4-5.0); ALK PHOS 154 U/L (45-117); ANION GAP 11 MMOL/L (8-16); BLOOD UREA NITROGEN 42 mg/dL (7-18); CALCIUM 8.5 mg/dL (8.5-10.1); CHLORIDE 100 mmol/L (98-107); CO2 21 mmol/L (21-32); GLUCOSE,RANDOM 74 mg/dL (74-106); MAGNESIUM 1.7 mg/dL (1.8-2.4); PHOSPHOROUS 4.5 mg/dL (2.5-4.9); POTASSIUM 4.9 mmol/L (3.5-5.1); SGOT/AST 42 U/L (15-37); SGPT/ALT 35 U/L (13-61); SODIUM 132 mmol/L (136-145); TOT PROT 7.1 g/dl (6.4-8.2)
[2018-06-11 08:34] LABS: CREATININE 7.9 mg/dL (0.55-1.3)
[2018-06-11] MEDS ORDERED: PT OWN MED DRAWER 7, Y5N ONE (10:43)
[2018-06-11] MEDS: clonazePAM 0.5 MG TABLET PO SCH (10:47)
[2018-06-11] MEDS: RITONAVIR/LOPINAVIR 50MG/200MG 1 COMBO TABLET PO SCH ×2 (10:48→22:57)
[2018-06-11] MEDS: ABACAVIR SULFATE 300 MG TABLET PO SCH ×2 (10:48→22:56)
[2018-06-11] MEDS: VITAMIN B COMP W-C 1 EA TABLET PO SCH (10:48)
[2018-06-11] MEDS: OSELTAMIVIR PHOSPHATE 30 MG CAPSULE PO SCH (10:48)
[2018-06-11] MEDS: RALTEGRAVIR POTASSIUM 400 MG TAB PO SCH (10:48)
[2018-06-11] MEDS: LOSARTAN POTASSIUM 50 MG TABLET (FP) PO SCH (10:49)
[2018-06-11] MEDS: BACITRACIN 15 GM TUBE TOPICAL OINTMENT TP SCH ×2 (10:49→22:54)
--- NOTE | 2018-06-11 11:59 | CONSULT ---
Consult - text type - Consultation Consultation Note: Renal consult for ESRD on HD This is a 57 year old woman with hx of HIV, ESRD on HD, Hypertension, Hepatitis C who presented with 1 day history of fever and cough and admitted for acute influenza. Pt awake and alert. Continue to have cough but is slightly improved. No chest pain, fever, chills, SOB, Abd pain this morning. Last dialysis was yesterday w/o complication. No sick contacts. PMhx; as above Allergies: NDKA Family Hx: NC Social Hx: No T/A/D ROS: as per HPI Home Medications Medication Instructions Recorded Methadone [Dolophine -] 80 mg PO DAILY@0600 06/18/15 Doxercalciferol 1 mcg PO DAILY #30 capsule 01/20/18 Folic Acid/Vit B Complex and C 0.8 mg PO DAILY #30 tablet 01/20/18 [Renal Vitamin Tablet] Abacavir Sulfate [Ziagen -] 300 mg PO BID #60 tablet 03/03/18 Lopinavir/Ritonavir [Kaletra 2 each PO BID #120 tablet 03/03/18 200-50 mg Tablet] Raltegravir [Isentress] 400 mg PO BID #60 tab 03/03/18 Bacitracin - [Bacitracin Topical 1 applic TP BID #1 tube 05/27/18 Ointment -] Lidocaine HCl/Menthol [Icy Hot 76.5 gm TP TID PRN #2 tube 06/02/18 4%-1% Cream] Oxycodone HCl/Acetaminophen 1 each PO BID PRN #60 tablet MDD 2 06/02/18 [Percocet 10-325 mg Tablet] Losartan Potassium 50 mg PO DAILY #30 tablet 06/09/18 Zolpidem Tartrate [Ambien] 5 mg PO HS PRN #30 tablet MDD 1 06/09/18 clonazePAM [Klonopin -] 0.5 mg PO DAILY #30 tablet MDD 1 06/09/18 Vital Signs Temperature 101.1 F H 06/11/18 06:58 Pulse Rate 78 06/11/18 06:58 Respiratory Rate 20 06/11/18 06:58 Blood Pressure 122/73 06/11/18 03:41 O2 Sat by Pulse Oximetry (%) 98 06/11/18 03:38 Intake & Output 06/08/18 06/09/18 06/10/1806/11/19 23:59 23:59 23:59 23:59 Weight 83.007 kg 85.275 kg NAD awake and alert neck supple RRR, No M/R CTA, no rales or wheeze soft NT/ND no LE edema L arm aVF CBC, BMP 06/11/18 06:40 06/11/18 06:40 Current Medications Abacavir Sulfate (Ziagen -) 300 mg PO BID [facility] Last Admin: 06/11/18 10:48 Dose: 300 mg Acetaminophen (Tylenol -) 650 mg PO Q4H PRN PRN Reason: PAIN OR FEVER Last Admin: 06/11/18 06:41 Dose: 650 mg Albuterol Sulfate (Ventolin 0.083% Nebulizer Soln -) 1 amp NEB Q4H PRN PRN Reason: SHORT OF BREATH/WHEEZING Bacitracin (Bacitracin -) 1 applic TP BID [facility] [place] Last Admin: 06/11/18 10:49 Dose: 1 applic Clonazepam (Klonopin -) 0.5 mg PO DAILY [facility] [place] Last Admin: 06/11/18 10:47 Dose: 0.5 mg Heparin Sodium (Porcine) (Heparin -) 5,000 unit SQ TID [facility] [place] Last Admin: 06/11/18 06:41 Dose: 5,000 unit Lopinavir/Ritonavir (Kaletra 200mg/50mg -) 2 tablet PO BID [facility] [place] Last Admin: 06/11/18 10:48 Dose: 2 tablet Losartan Potassium (Cozaar -) 50 mg PO DAILY [facility] [place] Last Admin: 06/11/18 10:49 Dose: 50 mg Multivit/Ca Carb/B Cmplx/FA/Prenat (Nephro-Misael -) 1 tablet PO DAILY [facility] [place] Last Admin: 06/11/18 10:48 Dose: 1 tablet Oseltamivir Phosphate (Tamiflu -) 30 mg PO DAILY [facility] [place] Stop: 06/16/18 09:59 Last Admin: 06/11/18 10:48 Dose: 30 mg Raltegravir (Isentress -) 400 mg PO BID [facility] [place] Last Admin: 06/11/18 10:48 Dose: 400 mg Zolpidem Tartrate (Ambien -) 5 mg PO HS PRN PRN Reason: INSOMNIA 57 year old woman with hx of HIV, ESRD on HD, Hypertension, Hepatitis C who presented with 1 day history of fever and cough and admitted for acute influenza. #Acute Influenza/Fever #ESRD on HD #HIV #Hepatitis C #Hypertension #CKD related Anemia #Hyponatremia clinically stable Continue Tamiflu 30mg after each dialysis session for [address] lung report pending no acute need for dialysis today, next tx is for due for wednesday continue Losartan expect Na should improved following UF with dialysis Renal diet, 1.2 L fluid restriction Thank you John Cheung DO
[2018-06-11] MEDS ORDERED: METHADONE HCL 10 MG TABLET PO ONE (12:15)
--- NOTE | 2018-06-11 12:31 | PN ---
Progress Note (short form) - Note Progress Note: ID CONSULT DICTATED ACUTE INFLUENZA A R/O RLL PNEUMONIA HIV + ESRD AWAIT C/S CONTINUE TAMIFLU CEFTRIAXONE + STAT DOSE VANCOMYCIN DROPLET PRECAUTIONS
[2018-06-11 12:46] LABS: ANISOCYTOSIS 0; MACROCYTOSIS 0; PLATELET ESTIMATE DECREASED
[2018-06-11] MEDS ORDERED: cefTRIAXone SODIUM 1 GM VIAL ONE (12:50)
[2018-06-11] MEDS ORDERED: DEXTROSE 5%-WATER - 50 ML IVPB ONE (12:50)
[2018-06-11] MEDS: CEFTRIAXONE 1 GM in DEXTROSE 5%-WATER - 50 ML IVPB SCH (12:55)
--- NOTE | 2018-06-11 13:26 | CONS ---
DATE OF CONSULTATION: 06/11/2018 HISTORY OF PRESENT ILLNESS: The patient is a 57-year-old female, history of HIV positive, end-stage renal disease on hemodialysis, evaluated for acute influenza. . The patient was admitted to the hospital on June 11, 2018, after developing productive cough and fever. She reports experiencing worsening cough productive of yellowish sputum associated with high-grade fever and shortness of breath after hemodialysis. She was evaluated in the emergency room where chest x-ray was negative for acute infiltrate. A rapid influenza test was performed and was positive for influenza A. She was started on Tamiflu. Patient reports continued cough productive of yellowish sputum. She denies any chest pain or hemoptysis. Her course has been complicated by fever. A CT scan of the chest was performed and showed increased markings at the right base. Official report is pending. Her course has been further complicated by elevated white blood cell count. Patient denies ill contacts and did receive influenza vaccine last year. PAST MEDICAL HISTORY: Positive for HIV disease. Her last viral markers show an undetectable viral load and a T-cell count of 285. Past medical history also includes end-stage renal disease on hemodialysis, hypertension, anorectal cancer, and hepatitis C. ALLERGIES: To BACLOFEN and NEURONTIN. MEDICATIONS: Include Kaletra, Ziagen, raltegravir. LABORATORY DATA: White count 15.2, hematocrit 32.6, platelet count 109. BUN 42, creatinine 7.9. PHYSICAL EXAMINATION: General: She is awake and alert, in no acute distress, breathing is nonlabored. Vital signs: Temperature 101.1, blood pressure 122/73, pulse 88 and regular, respirations 20 per minute. HEENT: Sclerae anicteric. Oropharynx had no injection or exudate. Neck: Supple. No palpable nodes. Heart: Heart sounds S1, S2. Lungs: Rales at the right base. Abdomen: Soft, nontender. Extremities: Negative for edema. AV graft present in the upper extremity. IMPRESSION: 1. Acute influenza A. 2. Rule out right lower lobe pneumonia. 3. Leukocytosis, thrombocytopenia likely secondary to infection. 4. End-stage renal disease on hemodialysis. 5. Human immunodeficiency virus positive. Await cultures, continue Tamiflu adjusted for end-stage renal disease, empiric antibiotic coverage with ceftriaxone plus stat dose of vancomycin, continue antiretroviral therapy, droplet precautions. Thank you for the kind referral. LU CROSS M.D. [id number]
--- NOTE | 2018-06-11 14:08 | PN ---
Progress Note, Physician Chief Complaint: Ms Acosta says she is feeling well. Denies cp, sob, n/v. Says she is currently fever free and feeling better. - Current Medication List Current Medications: Active Medications Abacavir Sulfate (Ziagen -) 300 mg PO BID [facility] Last Admin: 06/11/18 10:48 Dose: 300 mg Acetaminophen (Tylenol -) 650 mg PO Q4H PRN PRN Reason: PAIN OR FEVER Last Admin: 06/11/18 06:41 Dose: 650 mg Albuterol Sulfate (Ventolin 0.083% Nebulizer Soln -) 1 amp NEB Q4H PRN PRN Reason: SHORT OF BREATH/WHEEZING Bacitracin (Bacitracin -) 1 applic TP BID [facility] Last Admin: 06/11/18 10:49 Dose: 1 applic Clonazepam (Klonopin -) 0.5 mg PO DAILY [facility] Last Admin: 06/11/18 10:47 Dose: 0.5 mg Heparin Sodium (Porcine) (Heparin -) 5,000 unit SQ TID [facility] Last Admin: 06/11/18 06:41 Dose: 5,000 unit Ceftriaxone Sodium 1 gm/ (Dextrose) 50 mls @ 100 mls/hr IVPB DAILY [facility]; Protocol Last Admin: 06/11/18 12:55 Dose: 100 mls/hr Lopinavir/Ritonavir (Kaletra 200mg/50mg -) 2 tablet PO BID [facility] Last Admin: 06/11/18 10:48 Dose: 2 tablet Losartan Potassium (Cozaar -) 50 mg PO DAILY [facility] Last Admin: 06/11/18 10:49 Dose: 50 mg Methadone HCl (Dolophine -) 80 mg PO DAILY@0600 [facility] Multivit/Ca Carb/B Cmplx/FA/Prenat (Nephro-Misael -) 1 tablet PO DAILY [facility] Last Admin: 06/11/18 10:48 Dose: 1 tablet Oseltamivir Phosphate (Tamiflu -) 30 mg PO DAILY [facility] Stop: 06/16/18 09:59 Last Admin: 06/11/18 10:48 Dose: 30 mg Raltegravir (Isentress -) 400 mg PO BID [facility] Last Admin: 06/11/18 10:48 Dose: 400 mg Zolpidem Tartrate (Ambien -) 5 mg PO HS PRN PRN Reason: INSOMNIA - Objective Vital Signs: Vital Signs Temperature 37.3 C 06/11/18 13:29 Pulse Rate 80 06/11/18 13:29 Respiratory Rate 20 06/11/18 13:29 Blood Pressure 98/47 L 06/11/18 13:29 O2 Sat by Pulse Oximetry (%) 98 06/11/18 03:38 Constitutional: Yes: Well Nourished, No Distress, Calm Cardiovascular: Yes: Regular Rate and Rhythm. No: Gallop, Murmur, Rub Respiratory: Yes: Regular, CTA Bilaterally. No: Rales, Rhonchi, Wheezes Gastrointestinal: Yes: Normal Bowel Sounds, Soft. No: Distention, Tenderness Extremities: Yes: WNL Edema: No Labs: CBC, BMP 06/11/18 06:40 06/11/18 06:40 INR, PTT INR 1.23 (0.83-1.09) H 06/11/18 06:40 Problem List - Problems (1) Influenza A Assessment/Plan: -appreciate ID assistance -on tamiflu, renally dosed -continue Code(s): J10.1 - FLU DUE TO OTH IDENT INFLUENZA VIRUS W OTH RESP MANIFEST (2) Pneumonia Assessment/Plan: -case d/w Dr Jimenez -azra 1gm IV daily -day 2 of antibiotics Code(s): J18.9 - PNEUMONIA, UNSPECIFIED ORGANISM Qualifiers: (3) HIV (human immunodeficiency virus infection) Assessment/Plan: -continue home regimen -ID following Code(s): B20 - HUMAN IMMUNODEFICIENCY VIRUS [HIV] DISEASE (4) HTN (hypertension) Assessment/Plan: -controlled -continue cozaar Code(s): I10 - ESSENTIAL (PRIMARY) HYPERTENSION (5) ESRD (end stage renal disease) Assessment/Plan: -nephrology following -defer HD to Dr Cheung Code(s): N18.6 - END STAGE RENAL DISEASE (6) Moderate methadone dependence Assessment/Plan: -continue home methadone dose Code(s): F11.20 - OPIOID DEPENDENCE, UNCOMPLICATED
--- NOTE | 2018-06-11 16:26 | EKG ---
Test Reason : Blood Pressure : / mmHG Vent. Rate : 091 BPM Atrial Rate : 091 BPM P-R Int : 196 ms QRS Dur : 088 ms QT Int : 386 ms P-R-T Axes : 074 037 028 degrees QTc Int : 474 ms NORMAL SINUS RHYTHM POSSIBLE LEFT ATRIAL ENLARGEMENT NONSPECIFIC ST AND T WAVE ABNORMALITY PROLONGED QT ABNORMAL ECG WHEN COMPARED WITH ECG OF 31-MAR-2018 09:04, VENT. RATE HAS INCREASED BY 31 BPM NONSPECIFIC T WAVE ABNORMALITY, WORSE IN INFERIOR LEADS INVERTED T WAVES HAVE REPLACED NONSPECIFIC T WAVE ABNORMALITY IN ANTERIOR LEADS QT HAS LENGTHENED Confirmed by MARY ARRIOLA MD ([id number]) on 06/11/2018 4:26:16 PM Referred By: Confirmed By:MARY ARRIOLA MD
[2018-06-11] MEDS: ZOLPIDEM TARTRATE 5 MG TABLET PO PRN (23:07)
[2018-06-12] MEDS: RALTEGRAVIR POTASSIUM 400 MG TAB PO SCH ×3 (00:26→21:24)
[2018-06-12] MEDS: HEPARIN NA (PORCINE) 5,000 UNITS/ML 1ML VIAL SQ SCH ×2 (05:55→13:01)
[2018-06-12] MEDS: ALBUTEROL SO4 0.083% IH SOL 2.5 MG/3 ML VIAL.NEB. NEB PRN (07:34)
[2018-06-12] MEDS: METHADONE HCL 40 MG DISPERSABLE TABLET PO SCH (07:48)
[2018-06-12 07:49] LABS: BASO % 0.4 % (0-2.0); HEMATOCRIT 34.7 % (32.4-45.2); HEMOGLOBIN 11.6 GM/dL (10.7-15.3); LYMPH % 19.7 % (8-40); MCH 34.4 pg (25.7-33.7); MCHC 33.6 g/dl (32.0-36.0); MEAN CELL VOLUME 102.6 fl (80-96); MEAN PLT VOLUME 8.2 fl (7.5-11.1); MONO % 13.5 % (3.8-10.2); NEUT % 66.4 % (42.8-82.8); PLATELET COUNT 129 K/MM3 (134-434); RBC 3.38 M/mm3 (3.60-5.2); RDW 16.1 % (11.6-15.6); WHITE BLOOD COUNT 14.6 K/mm3 (4.0-10.0)
[2018-06-12 08:17] LABS: ANION GAP 15 MMOL/L (8-16); BLOOD UREA NITROGEN 62 mg/dL (7-18); CALCIUM 9.2 mg/dL (8.5-10.1); CHLORIDE 100 mmol/L (98-107); CO2 18 mmol/L (21-32); GLUCOSE,RANDOM 93 mg/dL (74-106); MAGNESIUM 2.3 mg/dL (1.8-2.4); PHOSPHOROUS 6.2 mg/dL (2.5-4.9); POTASSIUM 4.6 mmol/L (3.5-5.1); SODIUM 133 mmol/L (136-145)
[2018-06-12 09:51] LABS: CREATININE 10.5 mg/dL (0.55-1.3)
[2018-06-12] MEDS ORDERED: PT OWN MED DRAWER 7, Y5N ONE ×2 (10:12→21:10)
[2018-06-12] MEDS ORDERED: cefTRIAXone SODIUM 1 GM VIAL ONE (10:12)
[2018-06-12] MEDS ORDERED: DEXTROSE 5%-WATER - 50 ML IVPB ONE (10:12)
[2018-06-12] MEDS: ABACAVIR SULFATE 300 MG TABLET PO SCH ×2 (10:17→21:24)
[2018-06-12] MEDS: CEFTRIAXONE 1 GM in DEXTROSE 5%-WATER - 50 ML IVPB SCH (10:17)
[2018-06-12] MEDS: LOSARTAN POTASSIUM 50 MG TABLET (FP) PO SCH (10:18)
[2018-06-12] MEDS: BACITRACIN 15 GM TUBE TOPICAL OINTMENT TP SCH ×2 (10:18→21:25)
[2018-06-12] MEDS: OSELTAMIVIR PHOSPHATE 30 MG CAPSULE PO SCH (10:18)
[2018-06-12] MEDS: RITONAVIR/LOPINAVIR 50MG/200MG 1 COMBO TABLET PO SCH ×2 (10:18→21:24)
[2018-06-12] MEDS: clonazePAM 0.5 MG TABLET PO SCH (10:18)
[2018-06-12] MEDS: VITAMIN B COMP W-C 1 EA TABLET PO SCH (10:19)
--- NOTE | 2018-06-12 12:05 | PN ---
Progress Note, Physician History of Present Illness: AWAKE,ALERT C/O PRODUCTIVE COUGH NO C/O FEVER/ CHILLS TEMPS DOWN AFEBRILE - Current Medication List Current Medications: Active Medications Abacavir Sulfate (Ziagen -) 300 mg PO BID [facility] Last Admin: 06/12/18 10:17 Dose: 300 mg Acetaminophen (Tylenol -) 650 mg PO Q4H PRN PRN Reason: PAIN OR FEVER Last Admin: 06/11/18 22:54 Dose: 650 mg Albuterol Sulfate (Ventolin 0.083% Nebulizer Soln -) 1 amp NEB Q4H PRN PRN Reason: SHORT OF BREATH/WHEEZING Last Admin: 06/12/18 07:34 Dose: 1 amp Bacitracin (Bacitracin -) 1 applic TP BID [facility] Last Admin: 06/12/18 10:18 Dose: 1 applic Clonazepam (Klonopin -) 0.5 mg PO DAILY [facility] Last Admin: 06/12/18 10:18 Dose: 0.5 mg Heparin Sodium (Porcine) (Heparin -) 5,000 unit SQ TID [facility] Last Admin: 06/12/18 05:55 Dose: Not Given Ceftriaxone Sodium 1 gm/ (Dextrose) 50 mls @ 100 mls/hr IVPB DAILY [facility]; Protocol Last Admin: 06/12/18 10:17 Dose: 100 mls/hr Lopinavir/Ritonavir (Kaletra 200mg/50mg -) 2 tablet PO BID [facility] Last Admin: 06/12/18 10:18 Dose: 2 tablet Losartan Potassium (Cozaar -) 50 mg PO DAILY [facility] Last Admin: 06/12/18 10:18 Dose: 50 mg Methadone HCl (Dolophine -) 80 mg PO DAILY@0600 [facility] Last Admin: 06/12/18 07:48 Dose: 80 mg Multivit/Ca Carb/B Cmplx/FA/Prenat (Nephro-Misael -) 1 tablet PO DAILY [facility] Last Admin: 06/12/18 10:19 Dose: 1 tablet Oseltamivir Phosphate (Tamiflu -) 30 mg PO DAILY [facility] Stop: 06/16/18 09:59 Last Admin: 06/12/18 10:18 Dose: 30 mg Raltegravir (Isentress -) 400 mg PO BID [facility] Last Admin: 06/12/18 10:18 Dose: 400 mg Zolpidem Tartrate (Ambien -) 5 mg PO HS PRN PRN Reason: INSOMNIA Last Admin: 06/11/18 23:07 Dose: 5 mg - Objective Vital Signs: Vital Signs Temperature 98.4 F 06/12/18 10:00 Pulse Rate 86 06/12/18 10:00 Respiratory Rate 20 06/12/18 10:00 Blood Pressure 114/72 06/12/18 10:00 O2 Sat by Pulse Oximetry (%) 93 L 06/12/18 03:00 Constitutional: Yes: No Distress Cardiovascular: Yes: Regular Rate and Rhythm Respiratory: Yes: Other (CREPITATIONS R BASE) Gastrointestinal: Yes: Normal Bowel Sounds, Soft. No: Tenderness Labs: CBC, BMP 06/12/18 06:40 06/12/18 06:40 INR, PTT INR 1.23 (0.83-1.09) H 06/11/18 06:40 Assessment/Plan ACUTE INFLUENZA A R/O RLL PNEUMONIA HIV+ ESRD CONTINUE TAMIFLU/ CEFTRIAXONE
--- NOTE | 2018-06-12 17:02 | PN ---
Progress Note, Physician Chief Complaint: Ms Acosta says she is feeling better. Denies cp, sob, n/v. Complains about subQ heparin and is now refusing it. - Current Medication List Current Medications: Active Medications Abacavir Sulfate (Ziagen -) 300 mg PO BID [facility] Last Admin: 06/12/18 10:17 Dose: 300 mg Acetaminophen (Tylenol -) 650 mg PO Q4H PRN PRN Reason: PAIN OR FEVER Last Admin: 06/11/18 22:54 Dose: 650 mg Albuterol Sulfate (Ventolin 0.083% Nebulizer Soln -) 1 amp NEB Q4H PRN PRN Reason: SHORT OF BREATH/WHEEZING Last Admin: 06/12/18 07:34 Dose: 1 amp Bacitracin (Bacitracin -) 1 applic TP BID [facility] Last Admin: 06/12/18 10:18 Dose: 1 applic Clonazepam (Klonopin -) 0.5 mg PO DAILY [facility] Last Admin: 06/12/18 10:18 Dose: 0.5 mg Ceftriaxone Sodium 1 gm/ (Dextrose) 50 mls @ 100 mls/hr IVPB DAILY [facility]; Protocol Last Admin: 06/12/18 10:17 Dose: 100 mls/hr Lopinavir/Ritonavir (Kaletra 200mg/50mg -) 2 tablet PO BID [facility] Last Admin: 06/12/18 10:18 Dose: 2 tablet Losartan Potassium (Cozaar -) 50 mg PO DAILY [facility] Last Admin: 06/12/18 10:18 Dose: 50 mg Methadone HCl (Dolophine -) 80 mg PO DAILY@0600 [facility] Last Admin: 06/12/18 07:48 Dose: 80 mg Multivit/Ca Carb/B Cmplx/FA/Prenat (Nephro-Misael -) 1 tablet PO DAILY [facility] Last Admin: 06/12/18 10:19 Dose: 1 tablet Oseltamivir Phosphate (Tamiflu -) 30 mg PO DAILY [facility] Stop: 06/16/18 09:59 Last Admin: 06/12/18 10:18 Dose: 30 mg Raltegravir (Isentress -) 400 mg PO BID [facility] Last Admin: 06/12/18 10:18 Dose: 400 mg Zolpidem Tartrate (Ambien -) 5 mg PO HS PRN PRN Reason: INSOMNIA Last Admin: 06/11/18 23:07 Dose: 5 mg - Objective Vital Signs: Vital Signs Temperature 37.1 C 06/12/18 16:02 Pulse Rate 88 06/12/18 16:02 Respiratory Rate 20 06/12/18 16:02 Blood Pressure 122/74 06/12/18 16:02 O2 Sat by Pulse Oximetry (%) 92 L 06/12/18 11:00 Constitutional: Yes: Well Nourished, No Distress, Calm Cardiovascular: Yes: Regular Rate and Rhythm. No: Gallop, Murmur, Rub Respiratory: Yes: Regular, CTA Bilaterally. No: Rales, Rhonchi, Wheezes Gastrointestinal: Yes: Normal Bowel Sounds, Soft. No: Distention, Tenderness Extremities: Yes: WNL Edema: No Labs: CBC, BMP 06/12/18 06:40 06/12/18 06:40 INR, PTT INR 1.23 (0.83-1.09) H 06/11/18 06:40 Problem List - Problems (1) Influenza A Code(s): J10.1 - FLU DUE TO OTH IDENT INFLUENZA VIRUS W OTH RESP MANIFEST (2) Pneumonia Code(s): J18.9 - PNEUMONIA, UNSPECIFIED ORGANISM Qualifiers: (3) HIV (human immunodeficiency virus infection) Code(s): B20 - HUMAN IMMUNODEFICIENCY VIRUS [HIV] DISEASE (4) HTN (hypertension) Code(s): I10 - ESSENTIAL (PRIMARY) HYPERTENSION (5) ESRD (end stage renal disease) Code(s): N18.6 - END STAGE RENAL DISEASE (6) Moderate methadone dependence Code(s): F11.20 - OPIOID DEPENDENCE, UNCOMPLICATED Assessment/Plan (1) Influenza A Assessment/Plan: -continue tamiflu, renally dosed Code(s): J10.1 - FLU DUE TO OTH IDENT INFLUENZA VIRUS W OTH RESP MANIFEST (2) Pneumonia Assessment/Plan: -case d/w Dr Jimenez -shannonephin 1gm IV daily -day 3 of antibiotics -afebrile x 36 hours Code(s): J18.9 - PNEUMONIA, UNSPECIFIED ORGANISM Qualifiers: (3) HIV (human immunodeficiency virus infection) Assessment/Plan: -continue home regimen -ID following Code(s): B20 - HUMAN IMMUNODEFICIENCY VIRUS [HIV] DISEASE (4) HTN (hypertension) Assessment/Plan: -controlled -continue cozaar Code(s): I10 - ESSENTIAL (PRIMARY) HYPERTENSION (5) ESRD (end stage renal disease) Assessment/Plan: -HD per Dr Cheung Code(s): N18.6 - END STAGE RENAL DISEASE (6) Moderate methadone dependence Assessment/Plan: -continue home methadone dose Code(s): F11.20 - OPIOID DEPENDENCE, UNCOMPLICATED (7) DVT PPx -patient very upset about heparin, refuses -aware of DVT risk -will stop as patient is very adamant about getting it only in HD
[2018-06-12] MEDS: ACETAMINOPHEN 325 MG TABLET (FP) PO PRN (20:23)
[2018-06-12] MEDS: ZOLPIDEM TARTRATE 5 MG TABLET PO PRN (21:26)
[2018-06-13] MEDS: METHADONE HCL 40 MG DISPERSABLE TABLET PO SCH (06:18)
[2018-06-13] MEDS ORDERED: SODIUM CHLORIDE 250 ML IV PRN (06:28)
[2018-06-13] MEDS: ALBUTEROL SO4 0.083% IH SOL 2.5 MG/3 ML VIAL.NEB. NEB PRN (07:12)
[2018-06-13 08:26] LABS: BASO % 0.5 % (0-2.0); EOS % 0.5 % (0-4.5); HEMATOCRIT 35.3 % (32.4-45.2); HEMOGLOBIN 12.2 GM/dL (10.7-15.3); LYMPH % 23.5 % (8-40); MCH 35.7 pg (25.7-33.7); MCHC 34.5 g/dl (32.0-36.0); MEAN CELL VOLUME 103.3 fl (80-96); MONO % 13.5 % (3.8-10.2); PLATELET COUNT 138 K/MM3 (134-434); RBC 3.42 M/mm3 (3.60-5.2); RDW 16.2 % (11.6-15.6); WHITE BLOOD COUNT 13.3 K/mm3 (4.0-10.0)
[2018-06-13 08:48] LABS: ANION GAP 15 MMOL/L (8-16); BLOOD UREA NITROGEN 78 mg/dL (7-18); CALCIUM 8.3 mg/dL (8.5-10.1); CHLORIDE 100 mmol/L (98-107); CO2 18 mmol/L (21-32); GLUCOSE,RANDOM 82 mg/dL (74-106); MAGNESIUM 2.5 mg/dL (1.8-2.4); PHOSPHOROUS 5.8 mg/dL (2.5-4.9); POTASSIUM 4.3 mmol/L (3.5-5.1); SODIUM 133 mmol/L (136-145)
[2018-06-13 08:50] LABS: CREATININE 12.5 mg/dL (0.55-1.3)
[2018-06-13] MEDS ORDERED: DEXTROSE 5%-WATER - 50 ML IVPB ONE (09:27)
[2018-06-13] MEDS ORDERED: cefTRIAXone SODIUM 1 GM VIAL ONE (09:27)
[2018-06-13] MEDS ORDERED: PT OWN MED DRAWER 7, Y5N ONE ×2 (09:27→20:50)
[2018-06-13] MEDS: ACETAMINOPHEN 325 MG TABLET (FP) PO PRN (09:33)
[2018-06-13] MEDS: clonazePAM 0.5 MG TABLET PO SCH (09:34)
[2018-06-13] MEDS: LOSARTAN POTASSIUM 50 MG TABLET (FP) PO SCH (09:34)
[2018-06-13] MEDS: RITONAVIR/LOPINAVIR 50MG/200MG 1 COMBO TABLET PO SCH ×2 (09:35→23:18)
[2018-06-13] MEDS: RALTEGRAVIR POTASSIUM 400 MG TAB PO SCH ×2 (09:36→23:18)
[2018-06-13] MEDS: VITAMIN B COMP W-C 1 EA TABLET PO SCH (09:36)
[2018-06-13] MEDS: ABACAVIR SULFATE 300 MG TABLET PO SCH ×2 (09:37→23:16)
[2018-06-13] MEDS: CEFTRIAXONE 1 GM in DEXTROSE 5%-WATER - 50 ML IVPB SCH (09:37)
[2018-06-13] MEDS: BACITRACIN 15 GM TUBE TOPICAL OINTMENT TP SCH ×2 (09:44→23:17)
--- NOTE | 2018-06-13 12:11 | PN ---
Progress Note (short form) - Note Progress Note: Renal follow up for ESRD on HD Pt seen and examined at the bedside no acute complaints no sob, cp, abd pain, fever or chills cough is minimal no diarrhea Vital Signs Temperature 98.6 F 06/13/18 06:00 Pulse Rate 69 06/13/18 06:00 Respiratory Rate 18 06/13/18 06:00 Blood Pressure 116/63 06/13/18 06:00 O2 Sat by Pulse Oximetry (%) 96 06/13/18 03:00 Intake & Output 06/10/18 06/11/18 06/12/18 06/13/18 23:59 23:59 23:59 23:59 Intake Total 720 715 10 Balance 720 715 10 Weight 83.007 kg 85.275 kg 84.686 kg NAD awake and alert neck supple RRR, No M/R CTA, no rales or wheeze soft NT/ND no LE edema L arm aVF CBC, BMP 06/13/18 07:10 06/13/18 07:10 Current Medications Abacavir Sulfate (Ziagen -) 300 mg PO BID [facility] Last Admin: 06/13/18 09:37 Dose: 300 mg Acetaminophen (Tylenol -) 650 mg PO Q4H PRN PRN Reason: PAIN OR FEVER Last Admin: 06/13/18 09:33 Dose: 650 mg Albuterol Sulfate (Ventolin 0.083% Nebulizer Soln -) 1 amp NEB Q4H PRN PRN Reason: SHORT OF BREATH/WHEEZING Last Admin: 06/13/18 07:12 Dose: 1 amp Bacitracin (Bacitracin -) 1 applic TP BID [facility] Last Admin: 06/13/18 09:44 Dose: 1 applic Clonazepam (Klonopin -) 0.5 mg PO DAILY [facility] Last Admin: 06/13/18 09:34 Dose: 0.5 mg Ceftriaxone Sodium 1 gm/ (Dextrose) 50 mls @ 100 mls/hr IVPB DAILY [facility]; Protocol Last Admin: 06/13/18 09:37 Dose: 100 mls/hr Sodium Chloride (Normal Saline -) 250 mls @ 3,000 mls/hr IV PRN PRN PRN Reason: Hypotension during Dialysis Stop: 06/14/18 06:28 Lopinavir/Ritonavir (Kaletra 200mg/50mg -) 2 tablet PO BID [facility] Last Admin: 06/13/18 09:35 Dose: 2 tablet Losartan Potassium (Cozaar -) 50 mg PO DAILY [facility] Last Admin: 06/13/18 09:34 Dose: Not Given Methadone HCl (Dolophine -) 80 mg PO DAILY@0600 [facility] Last Admin: 06/13/18 06:18 Dose: 80 mg Multivit/Ca Carb/B Cmplx/FA/Prenat (Nephro-Misael -) 1 tablet PO DAILY [facility] Last Admin: 06/13/18 09:36 Dose: 1 tablet Oseltamivir Phosphate (Tamiflu -) 30 mg PO DAILY [facility] Stop: 06/16/18 09:59 Last Admin: 06/12/18 10:18 Dose: 30 mg Raltegravir (Isentress -) 400 mg PO BID [facility] Last Admin: 06/13/18 09:36 Dose: 400 mg Zolpidem Tartrate (Ambien -) 5 mg PO HS PRN PRN Reason: INSOMNIA Last Admin: 06/12/18 21:26 Dose: 5 mg 57 year old woman with hx of HIV, ESRD on HD, Hypertension, Hepatitis C who presented with 1 day history of fever and cough and admitted for acute influenza. #Acute Influenza/Fever #ESRD on HD #HIV #Hepatitis C #Hypertension #CKD related Anemia #Hyponatremia Clinically improved continue anti-virals and antibiotics as per ID for HD today with UF as tolerated d/c planning as per primary Thank you John Cheung DO
[2018-06-13] MEDS: OSELTAMIVIR PHOSPHATE 30 MG CAPSULE PO SCH ×2 (12:23→23:16)
--- NOTE | 2018-06-13 13:46 | PN ---
Progress Note, Physician History of Present Illness: AWAKE,ALERT REPORTS LESS COUGH/ SPUTUM NO C/O FEVER/ CHILLS TEMPS DOWN AFEBRILE WBC REMAINS SLIGHTLY ELEVATED SPUTUM GROWING GNR - Current Medication List Current Medications: Active Medications Abacavir Sulfate (Ziagen -) 300 mg PO BID [facility] Last Admin: 06/13/18 09:37 Dose: 300 mg Acetaminophen (Tylenol -) 650 mg PO Q4H PRN PRN Reason: PAIN OR FEVER Last Admin: 06/13/18 09:33 Dose: 650 mg Albuterol Sulfate (Ventolin 0.083% Nebulizer Soln -) 1 amp NEB Q4H PRN PRN Reason: SHORT OF BREATH/WHEEZING Last Admin: 06/13/18 07:12 Dose: 1 amp Bacitracin (Bacitracin -) 1 applic TP BID [facility] Last Admin: 06/13/18 09:44 Dose: 1 applic Clonazepam (Klonopin -) 0.5 mg PO DAILY [facility] Last Admin: 06/13/18 09:34 Dose: 0.5 mg Ceftriaxone Sodium 1 gm/ (Dextrose) 50 mls @ 100 mls/hr IVPB DAILY [facility]; Protocol Last Admin: 06/13/18 09:37 Dose: 100 mls/hr Sodium Chloride (Normal Saline -) 250 mls @ 3,000 mls/hr IV PRN PRN PRN Reason: Hypotension during Dialysis Stop: 06/14/18 06:28 Lopinavir/Ritonavir (Kaletra 200mg/50mg -) 2 tablet PO BID [facility] Last Admin: 06/13/18 09:35 Dose: 2 tablet Losartan Potassium (Cozaar -) 50 mg PO DAILY [facility] Last Admin: 06/13/18 09:34 Dose: Not Given Methadone HCl (Dolophine -) 80 mg PO DAILY@0600 [facility] Last Admin: 06/13/18 06:18 Dose: 80 mg Multivit/Ca Carb/B Cmplx/FA/Prenat (Nephro-Misael -) 1 tablet PO DAILY [facility] Last Admin: 06/13/18 09:36 Dose: 1 tablet Oseltamivir Phosphate (Tamiflu -) 30 mg PO DAILY [facility] Stop: 06/16/18 09:59 Last Admin: 06/13/18 12:23 Dose: Not Given Raltegravir (Isentress -) 400 mg PO BID [facility] Last Admin: 06/13/18 09:36 Dose: 400 mg Zolpidem Tartrate (Ambien -) 5 mg PO HS PRN PRN Reason: INSOMNIA Last Admin: 06/12/18 21:26 Dose: 5 mg - Objective Vital Signs: Vital Signs Temperature 98.3 F 06/13/18 10:00 Pulse Rate 81 06/13/18 10:00 Respiratory Rate 18 06/13/18 10:00 Blood Pressure 110/64 06/13/18 10:00 O2 Sat by Pulse Oximetry (%) 92 L 06/13/18 11:00 Constitutional: Yes: No Distress Cardiovascular: Yes: Regular Rate and Rhythm, S1, S2 Respiratory: Yes: Rhonchi Gastrointestinal: Yes: Normal Bowel Sounds, Soft. No: Tenderness Labs: CBC, BMP 06/13/18 07:10 06/13/18 07:10 INR, PTT INR 1.23 (0.83-1.09) H 06/11/18 06:40 Assessment/Plan ACUTE INFLUENZA A ? RLL PNEUMONIA HIV+ ESRD CONTINUE TAMIFLU COMPLETE 5D COURSE SUBSTITUTE PO CEFTIN 250MG QD X 7D
[2018-06-13] MEDS: CEFUROXIME AXETIL 250 MG TABLET PO SCH (15:11)
--- NOTE | 2018-06-13 15:28 | DS ---
Physical Examination Vital Signs: Vital Signs Temperature 37.0 C 06/13/18 14:00 Pulse Rate 69 06/13/18 14:00 Respiratory Rate 20 06/13/18 14:00 Blood Pressure 99/65 06/13/18 14:00 O2 Sat by Pulse Oximetry (%) 92 L 06/13/18 11:00 Constitutional: Yes: Well Nourished, No Distress, Calm Cardiovascular: Yes: Regular Rate and Rhythm. No: Gallop, Murmur, Rub Respiratory: Yes: Regular, CTA Bilaterally. No: Rales, Rhonchi, Wheezes Gastrointestinal: Yes: Normal Bowel Sounds, Soft. No: Distention, Tenderness Extremities: Yes: WNL Edema: No Labs: CBC, BMP 06/13/18 07:10 06/13/18 07:10 Discharge Summary Reason For Visit: INFLUENZA PNEUMONIA Current Active Problems HIV (human immunodeficiency virus infection) (Acute) Influenza A (Acute) Pneumonia (Acute) Hospital Course: (1) Influenza A Code(s): J10.1 - FLU DUE TO OTH IDENT INFLUENZA VIRUS W OTH RESP MANIFEST (2) Pneumonia Code(s): J18.9 - PNEUMONIA, UNSPECIFIED ORGANISM Qualifiers: (3) HIV (human immunodeficiency virus infection) Code(s): B20 - HUMAN IMMUNODEFICIENCY VIRUS [HIV] DISEASE (4) HTN (hypertension) Code(s): I10 - ESSENTIAL (PRIMARY) HYPERTENSION (5) ESRD (end stage renal disease) Code(s): N18.6 - END STAGE RENAL DISEASE (6) Moderate methadone dependence Code(s): F11.20 - OPIOID DEPENDENCE, UNCOMPLICATED Ms Acosta is a 57 year old female with history of HIV who comes in with influenza and was found to pneumonia. She was admitted to the hospital and seen by ID. She was placed on tamiflu that was renally dosed and also on rocephin. She improved significantly and is now feeling better. She is safe for discharge home on a full course of ceftin and to finish her course of tamiflu. 32 minutes spent in preparation of this discharge Condition: Stable - Instructions Diet, Activity, Other Instructions: resume previous diet and activity. Referrals: Isha Sanchez MD [Primary Care Provider] - Lilian Albert MD [Staff Physician] - Disposition: HOME - Home Medications Comprehensive Discharge Medication List: Ambulatory Orders Methadone [Dolophine -] 80 mg PO DAILY@0600 06/18/15 Doxercalciferol 1 mcg PO DAILY #30 capsule 01/20/18 Folic Acid/Vit B Complex and C [Renal Vitamin Tablet] 0.8 mg PO DAILY #30 tablet 01/20/18 Abacavir Sulfate [Ziagen -] 300 mg PO BID #60 tablet 03/03/18 Lopinavir/Ritonavir [Kaletra 200-50 mg Tablet] 2 each PO BID #120 tablet Raltegravir [Isentress] 400 mg PO BID #60 tab 03/03/18 Bacitracin - [Bacitracin Topical Ointment -] 1 applic TP BID #1 tube 05/27/18 Lidocaine HCl/Menthol [Icy Hot 4%-1% Cream] 76.5 gm TP TID PRN #2 tube 06/02/18 Losartan Potassium 50 mg PO DAILY #30 tablet 06/09/18 Zolpidem Tartrate [Ambien] 5 mg PO HS PRN #30 tablet MDD 1 06/09/18 clonazePAM [Klonopin -] 0.5 mg PO DAILY #30 tablet MDD 1 06/09/18 Cefuroxime Axetil [Ceftin -] 250 mg PO DAILY #7 tablet 06/13/18 Oseltamivir Phosphate [Tamiflu -] 30 mg PO DAILY #1 capsule 06/13/18
[2018-06-13] MEDS: ZOLPIDEM TARTRATE 5 MG TABLET PO PRN (23:16)
[2018-06-14] MEDS: METHADONE HCL 40 MG DISPERSABLE TABLET PO SCH (05:54)
[2018-06-14] MEDS ORDERED: PT OWN MED DRAWER 7, Y5N ONE (09:17)
[2018-06-14] MEDS: VITAMIN B COMP W-C 1 EA TABLET PO SCH (09:21)
[2018-06-14] MEDS: LOSARTAN POTASSIUM 50 MG TABLET (FP) PO SCH (09:21)
[2018-06-14] MEDS: OSELTAMIVIR PHOSPHATE 30 MG CAPSULE PO SCH (09:21)
[2018-06-14] MEDS: ABACAVIR SULFATE 300 MG TABLET PO SCH (09:21)
[2018-06-14] MEDS: CEFUROXIME AXETIL 250 MG TABLET PO SCH (09:22)
[2018-06-14] MEDS: RITONAVIR/LOPINAVIR 50MG/200MG 1 COMBO TABLET PO SCH (09:22)
[2018-06-14] MEDS: RALTEGRAVIR POTASSIUM 400 MG TAB PO SCH (09:22)
[2018-06-14] MEDS: BACITRACIN 15 GM TUBE TOPICAL OINTMENT TP SCH (09:22)
[2018-06-14] MEDS: clonazePAM 0.5 MG TABLET PO SCH (09:24)
[2018-06-14] MEDS ORDERED: LACTOBACILLUS ACIDOPHILUS 1 TABLET PO ONE (09:30)
[2018-06-14 12:31] VITALS: BP 116/71; PULSE 69; TEMP 98
[2018-06-15 12:19] LABS: HBSAG SCREEN Negative (Negative); HEP A AB, IGM Negative (Negative); HEP B CORE AB, TOT Negative (Negative)
== END 2018-06-14 11:03 | disposition home or self-care (01) | DRG 139 ==
LOC: JER 17:41 → UNDOADMOB 23:56 → INTOOBSV 23:56 → JERBED 23:56 → J8W 06-11 03:12 → OBSVTOIN 06-13 07:50
PROVIDERS: ADMIT Internal Medicine; ATTEND Internal Medicine
PROC: 5A1D70Z Performance of Urinary Filtration, Intermittent, Less than 6 Hours Per Day (ICD-10-PCS; principal; 2018-06-13)
DX: J09.X1 Influenza due to identified novel influenza A virus with pneumonia (principal); F11.20 Opioid dependence, uncomplicated; Z21 Asymptomatic human immunodeficiency virus [HIV] infection status; I13.11 Hypertensive heart and chronic kidney disease without heart failure, with stage 5 chronic kidney disease, or end stage renal disease; E78.5 Hyperlipidemia, unspecified; B19.20 Unspecified viral hepatitis C without hepatic coma; F41.9 Anxiety disorder, unspecified; D72.829 Elevated white blood cell count, unspecified; D72.825 Bandemia; N18.6 End stage renal disease; D63.1 Anemia in chronic kidney disease; E87.1 Hypo-osmolality and hyponatremia; Z99.2 Dependence on renal dialysis
CPT/HCPCS: 36415; 71046-TC-FY; 71250-TC; 80048; 80053; 83605; 83615; 83735; 84100; 85025; 85610; 85730; 86704; 86706; 86708; 86803; 87040; 87070; 87077; 87186; 87205; 87340; 87804; 87880; 93005; 93010; 94640; 99283-25; G0378; J0131; J1644; J7030

== ENCOUNTER → 2018-11-15 | Outpatient (CLI) | payer OTHER | LOC: YHH 14:58 ==

== ENCOUNTER 2020-12-04 04:23 | Day surgery (SDC) | payer OTHER ==
[2020-12-03 11:12] VITALS: BMI 30.4
[2020-12-04] MEDS ORDERED: LIDOCAINE HCL 1%, 10 MG/ML (20ML VIAL) ONE ×2 (07:55→10:48)
[2020-12-04] MEDS ORDERED: PAPAVERINE HCL 30 MG/1 ML 10 ML VIAL NR ONE (07:55)
[2020-12-04] MEDS ORDERED: HEPARIN NA (PORCINE) 5,000 UNITS/ML 1ML VIAL ONE (07:55)
[2020-12-04] MEDS ORDERED: POVIDONE-IODINE OINTMENT 10% - 28.4 GM TUBE ONE (07:56)
[2020-12-04] MEDS ORDERED: ONDANSETRON 4 MG/2 ML VIAL IVPUSH PRN (10:09)
[2020-12-04] MEDS ORDERED: PROMETHAZINE HCL 25 MG/1 ML VIAL IVPUSH PRN (10:09)
[2020-12-04] MEDS ORDERED: PROPOFOL 20 ML ONE ×2 (10:32→10:59)
[2020-12-04] MEDS ORDERED: MIDAZOLAM HCL 2 MG/2 ML SINGLE DOSE VIAL ONE (10:33)
[2020-12-04] MEDS ORDERED: ceFAZolin SODIUM 1 GM VIAL IVPB ONE (10:40)
[2020-12-04] MEDS ORDERED: LIDOCAINE HCL 1%, 10 MG/ML (20ML VIAL) PNB ONE ×2 (10:44)
[2020-12-04] MEDS ORDERED: HEPARIN NA (PORCINE) 5,000 UNITS/ML 1ML VIAL IVPUSH ONE (10:45)
[2020-12-04] MEDS ORDERED: POVIDONE-IODINE OINTMENT 10% - 28.4 GM TUBE TP ONE (11:00)
[2020-12-04 13:06] VITALS: TEMP 98.6
[2020-12-04 13:08] VITALS: BP 130/80; PULSE 74
== END 2020-12-04 13:20 | disposition home or self-care (01) ==
LOC: JASU-SURG 04:23
PROVIDERS: ATTEND Surgery
PROC: 03170ZD Bypass Right Brachial Artery to Upper Arm Vein, Open Approach (ICD-10-PCS; principal; 2020-12-04 10:00)
DX: I12.0 Hypertensive chronic kidney disease with stage 5 chronic kidney disease or end stage renal disease (principal); N18.6 End stage renal disease; Z99.2 Dependence on renal dialysis
CPT/HCPCS: 36415; 84132; 94760; J1644

== ENCOUNTER 2020-12-18 11:02 | Observation (INO) | payer OTHER ==
[2020-12-18] MEDS ORDERED: VANCOMYCIN 1,500 MG in DEXTROSE 5%-WATER - 250 ML IVPB ONE (12:10)
[2020-12-18 13:31] LABS: BASO % 0.6 % (0-2.0); EOS % 2.8 % (0-4.5); HEMATOCRIT 38.1 % (32.4-45.2); HEMOGLOBIN 12.9 GM/dL (10.7-15.3); LYMPH % 20.2 % (8-40); MCH 33.7 pg (25.7-33.7); MCHC 33.9 g/dl (32.0-36.0); MEAN CELL VOLUME 99.6 fl (80-96); MEAN PLT VOLUME 7.7 fl (7.5-11.1); MONO % 9.7 % (3.8-10.2); NEUT % 66.7 % (42.8-82.8); PLATELET COUNT 158 10^3/uL (134-434); RBC 3.83 M/mm3 (3.60-5.2); RDW 14.8 % (11.6-15.6); WHITE BLOOD COUNT 8.2 K/mm3 (4.0-10.0)
[2020-12-18] MEDS ORDERED: VANCOMYCIN PREMIX 1.5 GM 1,500 MG/300 ML BAG IVPB ONE (13:45)
[2020-12-18 14:00] LABS: CALCIUM 8.7 mg/dL (8.5-10.1)
[2020-12-18 14:01] LABS: ALBUMIN 3.2 g/dl (3.4-5.0); BLOOD UREA NITROGEN 28.9 mg/dL (7-18)
[2020-12-18 14:04] LABS: CREATININE 6.9 mg/dL (0.55-1.3)
[2020-12-18 14:05] LABS: BILIRUBIN,TOTAL 0.7 mg/dL (0.2-1); TOT PROT 8.8 g/dl (6.4-8.2)
[2020-12-18 14:09] LABS: ERYTHROCYTE SEDIMENTATION RATE 83 mm/hr (0-30)
[2020-12-18] MEDS ORDERED: MUPIROCIN CA 2% TOPICAL CREAM 15 GM TUBE TP SCH (16:15)
[2020-12-18] MEDS: INSULIN SLIDING SCALE (NOVOLOG) 1 VIAL SQ SCH ×2 (16:46→22:13)
[2020-12-18] MEDS ORDERED: ACETAMINOPHEN 325 MG TABLET (FP) PO PRN ×2 (21:45→23:33)
[2020-12-18] MEDS ORDERED: LIDOCAINE HCL 5% TOP OINTMENT 50 GM TUBE TP ONE (21:45)
[2020-12-18] MEDS ORDERED: MELATONIN 5 MG TABLETS PO PRN (21:45)
[2020-12-18] MEDS: HEPARIN NA (PORCINE) 5,000 UNITS/ML 1ML VIAL SQ SCH (22:02)
[2020-12-18] MEDS: MUPIROCIN 2% TOPICAL OINTMENT 22 GM TUBE TP SCH (22:06)
[2020-12-18] MEDS ORDERED: PATIENT'S OWN MEDICATION (NON-FORMULARY) (Oxycodone Hcl/Acetaminophen [Endocet 10-325 Mg T PO PRN (23:06)
[2020-12-18] MEDS ORDERED: oxyCODONE HCL 5 MG TABLET PO PRN (23:32)
[2020-12-19 00:16] VITALS: BMI 29.9
[2020-12-19] MEDS: HEPARIN NA (PORCINE) 5,000 UNITS/ML 1ML VIAL SQ SCH (05:36)
[2020-12-19] MEDS: INSULIN SLIDING SCALE (NOVOLOG) 1 VIAL SQ SCH (06:07)
[2020-12-19] MEDS ORDERED: methaDONE HCL 40 MG DISPERSABLE TABLET PO SCH ×2 (08:00)
[2020-12-19 08:06] LABS: BASO % 0.6 % (0-2.0); EOS % 2.7 % (0-4.5); HEMATOCRIT 36.5 % (32.4-45.2); HEMOGLOBIN 12.3 GM/dL (10.7-15.3); LYMPH % 24.2 % (8-40); MCH 33.8 pg (25.7-33.7); MCHC 33.6 g/dl (32.0-36.0); MEAN CELL VOLUME 100.5 fl (80-96); MONO % 12.8 % (3.8-10.2); NEUT % 59.7 % (42.8-82.8); PLATELET COUNT 147 10^3/uL (134-434); RBC 3.63 M/mm3 (3.60-5.2); RDW 15.3 % (11.6-15.6); WHITE BLOOD COUNT 7.3 K/mm3 (4.0-10.0)
[2020-12-19 08:23] LABS: CHLORIDE 101 mmol/L (98-107); SODIUM 133 mmol/L (136-145)
[2020-12-19 08:49] LABS: ALBUMIN 2.7 g/dl (3.4-5.0); CALCIUM 8.8 mg/dL (8.5-10.1)
[2020-12-19 08:50] LABS: ANION GAP 12 MMOL/L (8-16); BLOOD UREA NITROGEN 45.4 mg/dL (7-18); CO2 20 mmol/L (21-32); GLUCOSE,RANDOM 74 mg/dL (74-106)
[2020-12-19 08:53] LABS: PHOSPHOROUS 5.6 mg/dL (2.5-4.9); SGOT/AST 16 U/L (15-37); SGPT/ALT 12 U/L (13-61)
[2020-12-19 08:54] LABS: TOT PROT 7.5 g/dl (6.4-8.2)
[2020-12-19 08:55] LABS: ALK PHOS 120 U/L (45-117)
[2020-12-19 08:56] LABS: CREATININE 9.1 mg/dL (0.55-1.3)
[2020-12-19] MEDS ORDERED: clonazePAM 0.5 MG TABLET PO SCH (10:00)
[2020-12-19] MEDS ORDERED: DOLUTEGRAVIR SODIUM 50 MG TABLET (NON-FORMULARY) PO SCH (10:00)
[2020-12-19] MEDS ORDERED: RILPIVIRINE HCL 25 MG TABLET PO SCH (10:00)
[2020-12-19] MEDS ORDERED: PT OWN MED DRAWER 7, Y5N ONE (10:31)
[2020-12-19] MEDS: MUPIROCIN 2% TOPICAL OINTMENT 22 GM TUBE TP SCH (10:33)
[2020-12-19 11:57] VITALS: BP 111/74; PULSE 62; TEMP 98.1
[2020-12-19] MEDS ORDERED: ZOLPIDEM TARTRATE 5 MG TABLET PO SCH (22:00)
== END 2020-12-19 11:56 | disposition home or self-care (01) ==
LOC: JER 11:02 → INTOOBSV 13:40 → JERBED 13:40 → UNDOADMOB 13:40 → JERBED 15:55 → J5S 20:00
PROVIDERS: ATTEND Nurse Practitioner Family
PROC: 3E023GC Introduction of Other Therapeutic Substance into Muscle, Percutaneous Approach (ICD-10-PCS; principal; 2020-12-18)
PROC: 3E03329 Introduction of Other Anti-infective into Peripheral Vein, Percutaneous Approach (ICD-10-PCS; 2020-12-18)
DX: T81.31XA Disruption of external operation (surgical) wound, not elsewhere classified, initial encounter (principal); Z21 Asymptomatic human immunodeficiency virus [HIV] infection status; N18.6 End stage renal disease; Z99.2 Dependence on renal dialysis; Z87.891 Personal history of nicotine dependence; B19.20 Unspecified viral hepatitis C without hepatic coma; F41.9 Anxiety disorder, unspecified; E78.00 Pure hypercholesterolemia, unspecified; I12.0 Hypertensive chronic kidney disease with stage 5 chronic kidney disease or end stage renal disease; A63.0 Anogenital (venereal) warts; Z29.9 Encounter for prophylactic measures, unspecified; Y69 Unspecified misadventure during surgical and medical care
CPT/HCPCS: 36415; 80053; 83735; 84100; 85025; 85651; 86140; 87040; 87070; 87186; 87205; 96365; 96372; 99285-25; C9803; G0378; J1644; U0003; U0005

== ENCOUNTER 2021-02-17 06:11 | Emergency (ER) | payer OTHER ==
[2021-02-17 06:18] VITALS: BP 143/91; PULSE 70; TEMP 98.1; BMI 30.4
[2021-02-17] MEDS ORDERED: DIPHTH,PERTUSS(ACELL),TET 0.5 ML DISP.SYRIN IM ONE ×2 (07:46→07:51)
== END 2021-02-17 07:59 | disposition home or self-care (01) ==
LOC: JER 06:11
PROC: 3E0234Z Introduction of Serum, Toxoid and Vaccine into Muscle, Percutaneous Approach (ICD-10-PCS; principal; 2021-02-17)
DX: S61.412A Laceration without foreign body of left hand, initial encounter (principal); W26.0XXA Contact with knife, initial encounter
CPT/HCPCS: 90471; 90715; 99284-25

== ENCOUNTER 2021-05-20 13:29 | Inpatient (IN) | payer OTHER ==
[2021-05-20 13:33] VITALS: BMI 29.9
[2021-05-20 14:50] LABS: BASO % 0.4 % (0-2.0); EOS % 2.8 % (0-4.5); HEMATOCRIT 38.9 % (32.4-45.2); HEMOGLOBIN 12.5 GM/dL (10.7-15.3); LYMPH % 29.3 % (8-40); MCH 32.5 pg (25.7-33.7); MCHC 32.2 g/dl (32.0-36.0); MEAN CELL VOLUME 100.8 fl (80-96); MEAN PLT VOLUME 7.6 fl (7.5-11.1); MONO % 12.9 % (3.8-10.2); NEUT % 54.6 % (42.8-82.8); PLATELET COUNT 133 10^3/uL (134-434); RBC 3.86 M/mm3 (3.60-5.2); RDW 15.3 % (11.6-15.6); WHITE BLOOD COUNT 6.3 K/mm3 (4.0-10.0)
[2021-05-20 14:55] LABS: INR 1.15 (0.83-1.09); PROTHROMBIN TIME (PATIENT) 13.3 SEC (9.7-13.0)
[2021-05-20 14:58] LABS: ACTIVATED PTT 33.9 SECONDS (25.2-36.5)
[2021-05-20 15:07] LABS: CHLORIDE 106 mmol/L (98-107); SODIUM 135 mmol/L (136-145)
[2021-05-20 15:10] LABS: ALBUMIN 3.3 g/dl (3.4-5.0); BLOOD UREA NITROGEN 88.9 mg/dL (7-18); CO2 20 mmol/L (21-32); GLUCOSE,RANDOM 84 mg/dL (74-106); MAGNESIUM 2.5 mg/dL (1.8-2.4)
[2021-05-20 15:13] LABS: PHOSPHOROUS 6.7 mg/dL (2.5-4.9); SGOT/AST 18 U/L (15-37); SGPT/ALT 23 U/L (13-61)
[2021-05-20 15:15] LABS: BILIRUBIN,TOTAL 0.4 mg/dL (0.2-1); TOT PROT 7.8 g/dl (6.4-8.2)
[2021-05-20 15:16] LABS: ALK PHOS 127 U/L (45-117)
[2021-05-20 15:44] LABS: ANION GAP 9 MMOL/L (8-16); CREATININE 16.8 mg/dL (0.55-1.3)
[2021-05-20] MEDS ORDERED: CALCIUM GLUCONATE 10% - 1,000 MG/10 ML VIAL IVPUSH ONE (18:57)
[2021-05-20] MEDS ORDERED: DEXTROSE 50%-WATER - 25 GM/50 ML VIAL IVPUSH ONE (18:57)
[2021-05-20] MEDS ORDERED: INSULIN REGULAR HUMAN 100 UNITS/ML *VIAL IVPUSH ONE (18:57)
[2021-05-20] MEDS ORDERED: SODIUM ZIRCONIUM CYCLOSILICATE (LOKELMA) 5 GM PACKET PO ONE ×2 (18:58→20:48)
[2021-05-20] MEDS ORDERED: CALCIUM GLUCONATE 10% - 1,000 MG/10 ML VIAL ONE (19:17)
[2021-05-20] MEDS ORDERED: SODIUM ZIRCONIUM CYCLOSILICATE (LOKELMA) 5 GM PACKET ONE ×2 (19:17→21:11)
[2021-05-20] MEDS ORDERED: DEXTROSE 50%-WATER - 25 GM/50 ML VIAL ONE (19:21)
[2021-05-20 23:13] LABS: SODIUM 136 mmol/L (136-145)
[2021-05-20 23:14] LABS: CALCIUM 8.8 mg/dL (8.5-10.1)
[2021-05-20 23:15] LABS: BLOOD UREA NITROGEN 92.7 mg/dL (7-18); CO2 23 mmol/L (21-32); GLUCOSE,RANDOM 94 mg/dL (74-106); MAGNESIUM 2.7 mg/dL (1.8-2.4)
[2021-05-20 23:21] LABS: ANION GAP 8 MMOL/L (8-16); CHLORIDE 104 mmol/L (98-107); CREATININE 17.5 mg/dL (0.55-1.3)
[2021-05-21] MEDS ORDERED: PROPOFOL 20 ML ONE (08:56)
[2021-05-21] MEDS ORDERED: LIDOCAINE HCL/PF 2% SDV 5ML VIAL ONE (08:56)
[2021-05-21] MEDS ORDERED: MIDAZOLAM HCL 2 MG/2 ML SINGLE DOSE VIAL ONE ×2 (08:56→10:34)
[2021-05-21] MEDS ORDERED: methaDONE HCL 40 MG DISPERSABLE TABLET PO SCH (09:00)
[2021-05-21] MEDS ORDERED: KETAMINE HCL 200 MG/20 ML VIAL ONE (09:41)
[2021-05-21] MEDS ORDERED: DOLUTEGRAVIR SODIUM 50 MG TABLET (NON-FORMULARY) PO SCH ×2 (10:00→13:30)
[2021-05-21] MEDS ORDERED: RILPIVIRINE HCL 25 MG TABLET PO SCH ×2 (10:00→13:30)
[2021-05-21] MEDS ORDERED: HEPARIN NA (PORCINE) 5,000 UNITS/ML 1ML VIAL ONE ×3 (10:08→10:56)
[2021-05-21] MEDS ORDERED: LIDOCAINE HCL 1%, 10 MG/ML (20ML VIAL) ONE (10:08)
[2021-05-21] MEDS ORDERED: ONDANSETRON 4 MG/2 ML VIAL IVPUSH PRN ×2 (10:14→11:45)
[2021-05-21] MEDS ORDERED: SODIUM CHLORIDE 1,000 ML IV SCH ×2 (10:15→11:45)
[2021-05-21] MEDS ORDERED: ceFAZolin SODIUM 1 GM VIAL IVPB ONE (10:43)
[2021-05-21] MEDS ORDERED: LIDOCAINE HCL 1%, 10 MG/ML (20ML VIAL) INF ONE (11:15)
[2021-05-21] MEDS ORDERED: SODIUM CHLORIDE 250 ML IV PRN ×2 (11:19→11:45)
[2021-05-21] MEDS ORDERED: ceFAZolin SODIUM 1 GM VIAL ONE (12:09)
[2021-05-21] MEDS ORDERED: GLYCOPYRROLATE 0.2 MG/1 ML VIAL ONE (12:10)
[2021-05-21] MEDS ORDERED: DESFLURANE GAS 240 ML BOTTLE IH ONE (12:12)
[2021-05-21] MEDS ORDERED: GLYCOPYRROLATE 0.2 MG/1 ML VIAL IVPB ONE ×2 (12:14→12:29)
[2021-05-21] MEDS ORDERED: SUGAMMADEX SODIUM 200 MG/2 ML VIAL ONE (13:46)
[2021-05-21] MEDS ORDERED: ZOLPIDEM TARTRATE 5 MG TABLET PO PRN (13:56)
[2021-05-21] MEDS ORDERED: clonazePAM 0.5 MG TABLET PO PRN (13:56)
[2021-05-21] MEDS ORDERED: PATIENT'S OWN MEDICATION (NON-FORMULARY) (Dolutegravir/Rilpivirine [Juluca 50-25 Mg Tablet PO SCH (14:00)
[2021-05-21] MEDS: SEVELAMER CARBONATE 800 MG TAB (FP) PO SCH (21:26)
[2021-05-21] MEDS ORDERED: ACETAMINOPHEN 325 MG TABLET (FP) PO ONE (21:48)
[2021-05-22] MEDS ORDERED: methaDONE HCL 40 MG DISPERSABLE TABLET PO SCH (06:00)
[2021-05-22 08:04] VITALS: BP 128/80; PULSE 70; TEMP 98.4
[2021-05-22] MEDS: SEVELAMER CARBONATE 800 MG TAB (FP) PO SCH (08:13)
== END 2021-05-22 08:14 | disposition home or self-care (01) | DRG 182 ==
LOC: JER 13:29 → JERBED 14:17 → J4S 05-21 06:29
PROVIDERS: ADMIT Internal Medicine; ATTEND Nurse Practitioner Family
PROC: 057Y3ZZ Dilation of Upper Vein, Percutaneous Approach (ICD-10-PCS; 2021-05-21)
PROC: 05CB3ZZ Extirpation of Matter from Right Basilic Vein, Percutaneous Approach (ICD-10-PCS; principal; 2021-05-21 10:00)
DX: T82.868A Thrombosis due to vascular prosthetic devices, implants and grafts, initial encounter (principal); Y83.8 Other surgical procedures as the cause of abnormal reaction of the patient, or of later complication, without mention of misadventure at the time of the procedure; F11.20 Opioid dependence, uncomplicated; Z21 Asymptomatic human immunodeficiency virus [HIV] infection status; I12.0 Hypertensive chronic kidney disease with stage 5 chronic kidney disease or end stage renal disease; N18.6 End stage renal disease; Z99.2 Dependence on renal dialysis; R00.1 Bradycardia, unspecified
CPT/HCPCS: 36415; 76000-TC-FY; 80048; 80053; 83735; 84100; 84132; 85025; 85610; 85730; 86803; 86850; 86900; 86901; 87340; 87522; 93005; 93010; 94760; 99285-25; C9803; J1644; U0003; U0005

== ENCOUNTER 2022-07-20 15:32 | Observation (INO) | payer OTHER ==
[2022-07-20] MEDS ORDERED: ACETAMINOPHEN 500 MG TABLET (FP) PO ONE ×2 (17:48→17:49)
[2022-07-20] MEDS ORDERED: ACETAMINOPHEN 500 MG TABLET (FP) ONE (17:50)
[2022-07-20] MEDS ORDERED: ACETAMINOPHEN 500 MG TABLET (FP) PO PRN (21:07)
[2022-07-20] MEDS ORDERED: LIDOCAINE 2.5%/PRILOCAINE 2.5% (5 Gram/TUBE) TP SCH (21:15)
[2022-07-20 21:43] LABS: BASO % 0.5 % (0-2.0); EOS % 1.3 % (0-4.5); HEMOGLOBIN 11.1 GM/dL (10.7-15.3); LYMPH % 14.4 % (8-40); MCH 33.2 pg (25.7-33.7); MCHC 33.7 g/dl (32.0-36.0); MEAN CELL VOLUME 98.6 fl (80-96); MEAN PLT VOLUME 7.9 fl (7.5-11.1); NEUT % 73.8 % (42.8-82.8); PLATELET COUNT 119 10^3/uL (134-434); RBC 3.35 M/mm3 (3.60-5.2); RDW 13.5 % (11.6-15.6); WHITE BLOOD COUNT 7.9 K/mm3 (4.0-10.0)
[2022-07-20 22:00] LABS: POTASSIUM 4.2 mmol/L (3.5-5.1)
[2022-07-20 22:01] LABS: CALCIUM 9.6 mg/dL (8.5-10.1)
[2022-07-20 22:03] LABS: ALBUMIN 3.5 g/dl (3.4-5.0)
[2022-07-20 22:06] LABS: CREATININE 7.3 mg/dL (0.55-1.3)
[2022-07-20 22:13] LABS: BILIRUBIN,TOTAL 0.5 mg/dL (0.2-1); BLOOD UREA NITROGEN 36.1 mg/dL (7-18)
[2022-07-20] MEDS ORDERED: LIDOCAINE 2.5%/PRILOCAINE 2.5% (5 Gram/TUBE) TP PRN (23:28)
[2022-07-20] MEDS: NICOTINE 7 MG/24 HOURS TOPICAL PATCH TD SCH (23:31)
[2022-07-20] MEDS: ZOLPIDEM TARTRATE 5 MG TABLET PO PRN (23:31)
[2022-07-20] MEDS: HEPARIN NA (PORCINE) 5,000 UNITS/ML 1ML VIAL SQ SCH (23:32)
[2022-07-21] MEDS ORDERED: ACETAMINOPHEN 500 MG TABLET (FP) PO PRN (04:01)
[2022-07-21] MEDS: HEPARIN NA (PORCINE) 5,000 UNITS/ML 1ML VIAL SQ SCH ×3 (05:18→21:00)
[2022-07-21 08:52] LABS: HEMATOCRIT 33.7 % (32.4-45.2); HEMOGLOBIN 11.2 GM/dL (10.7-15.3); MCH 33.1 pg (25.7-33.7); MCHC 33.3 g/dl (32.0-36.0); MEAN CELL VOLUME 99.3 fl (80-96); MEAN PLT VOLUME 7.5 fl (7.5-11.1); PLATELET COUNT 111 10^3/uL (134-434); RDW 13.8 % (11.6-15.6)
[2022-07-21] MEDS: CITALOPRAM HYDROBROMIDE 20 MG TABLET PO SCH (09:13)
[2022-07-21 09:14] LABS: MAGNESIUM 1.9 mg/dL (1.8-2.4)
[2022-07-21] MEDS: NICOTINE 7 MG/24 HOURS TOPICAL PATCH TD SCH (09:14)
[2022-07-21] MEDS: VITAMIN B COMP W-C 1 EA TABLET (NEPHRO-VITE) PO SCH (09:14)
[2022-07-21] MEDS: RILPIVIRINE HCL 25 MG TABLET PO SCH (09:14)
[2022-07-21] MEDS: DOLUTEGRAVIR SODIUM 50 MG TABLET (NON-FORMULARY) PO SCH (09:14)
[2022-07-21 09:18] LABS: PHOSPHOROUS 4.2 mg/dL (2.5-4.9)
[2022-07-21] MEDS ORDERED: methaDONE HCL 40 MG DISPERSABLE TABLET PO ONE (09:30)
[2022-07-21] MEDS ORDERED: PATIENT'S OWN MEDICATION (NON-FORMULARY) (Dolutegravir/Rilpivirine [Juluca 50-25 Mg Tablet PO SCH (10:00)
[2022-07-21] MEDS ORDERED: ACETAMINOPHEN 1000 MG/100 ML BAG IVPB PRN (11:51)
[2022-07-21 16:15] VITALS: RESP 18
[2022-07-21 16:33] VITALS: BMI 24.5
[2022-07-21] MEDS ORDERED: SODIUM CHLORIDE 250 ML IV PRN (16:34)
[2022-07-21] MEDS: ZOLPIDEM TARTRATE 5 MG TABLET PO PRN (21:00)
[2022-07-22] MEDS: methaDONE HCL 40 MG DISPERSABLE TABLET PO SCH (05:19)
[2022-07-22] MEDS: HEPARIN NA (PORCINE) 5,000 UNITS/ML 1ML VIAL SQ SCH ×3 (05:19→22:37)
[2022-07-22 09:12] LABS: HEMATOCRIT 31.3 % (32.4-45.2); HEMOGLOBIN 10.5 GM/dL (10.7-15.3); MCH 33.2 pg (25.7-33.7); MCHC 33.6 g/dl (32.0-36.0); MEAN CELL VOLUME 98.7 fl (80-96); PLATELET COUNT 102 10^3/uL (134-434); RBC 3.17 M/mm3 (3.60-5.2); RDW 13.5 % (11.6-15.6); WHITE BLOOD COUNT 6.8 K/mm3 (4.0-10.0)
[2022-07-22 09:38] LABS: CHLORIDE 101 mmol/L (98-107); POTASSIUM 4.1 mmol/L (3.5-5.1); SODIUM 134 mmol/L (136-145)
[2022-07-22 09:41] LABS: ANION GAP 10 MMOL/L (8-16); CALCIUM 8.9 mg/dL (8.5-10.1); CO2 24 mmol/L (21-32); GLUCOSE,RANDOM 112 mg/dL (74-106)
[2022-07-22 09:49] LABS: CREATININE 10.3 mg/dL (0.55-1.3)
[2022-07-22] MEDS: VITAMIN B COMP W-C 1 EA TABLET (NEPHRO-VITE) PO SCH ×2 (10:08→12:24)
[2022-07-22] MEDS: NICOTINE 7 MG/24 HOURS TOPICAL PATCH TD SCH ×2 (10:08→12:24)
[2022-07-22] MEDS: RILPIVIRINE HCL 25 MG TABLET PO SCH ×2 (10:08→12:27)
[2022-07-22] MEDS: DOLUTEGRAVIR SODIUM 50 MG TABLET (NON-FORMULARY) PO SCH ×2 (10:08→12:26)
[2022-07-22] MEDS: CITALOPRAM HYDROBROMIDE 20 MG TABLET PO SCH ×2 (10:08→12:23)
[2022-07-22] MEDS: oxyCODONE HCL 5 MG TABLET PO PRN ×2 (12:52→22:36)
[2022-07-22] MEDS: LIDOCAINE 5% TOPICAL PATCH TP SCH (15:17)
[2022-07-22] MEDS: ZOLPIDEM TARTRATE 5 MG TABLET PO PRN (21:36)
[2022-07-22] MEDS ORDERED: LIDOCAINE PATCH REMOVAL MC SCH (22:00)
[2022-07-23] MEDS: methaDONE HCL 40 MG DISPERSABLE TABLET PO SCH (05:27)
[2022-07-23] MEDS: HEPARIN NA (PORCINE) 5,000 UNITS/ML 1ML VIAL SQ SCH (05:28)
[2022-07-23] MEDS ORDERED: BACITRACIN 0.9 GM PACKET TP ONE (07:52)
[2022-07-23 09:58] VITALS: BP 152/92; PULSE 77; TEMP 98.1
[2022-07-23] MEDS ORDERED: MUPIROCIN 2% TOPICAL OINTMENT 22 GM TUBE TP SCH (10:15)
[2022-07-23] MEDS: NICOTINE 7 MG/24 HOURS TOPICAL PATCH TD SCH (10:19)
[2022-07-23] MEDS: LIDOCAINE 5% TOPICAL PATCH TP SCH (10:20)
[2022-07-23] MEDS: CITALOPRAM HYDROBROMIDE 20 MG TABLET PO SCH (10:20)
[2022-07-23] MEDS: RILPIVIRINE HCL 25 MG TABLET PO SCH (10:20)
[2022-07-23] MEDS: VITAMIN B COMP W-C 1 EA TABLET (NEPHRO-VITE) PO SCH (10:20)
[2022-07-23] MEDS: DOLUTEGRAVIR SODIUM 50 MG TABLET (NON-FORMULARY) PO SCH (10:20)
== END 2022-07-23 13:37 | disposition home or self-care (01) ==
LOC: JER 15:32 → JERFT 15:32 → JERBED 20:06 → J6S 23:03
PROVIDERS: ADMIT Internal Medicine; ATTEND Internal Medicine
PROC: 3E033GC Introduction of Other Therapeutic Substance into Peripheral Vein, Percutaneous Approach (ICD-10-PCS; principal; 2022-07-20)
PROC: 3E0337Z Introduction of Electrolytic and Water Balance Substance into Peripheral Vein, Percutaneous Approach (ICD-10-PCS; 2022-07-20)
DX: S99.811A Other specified injuries of right ankle, initial encounter (principal); M25.571 Pain in right ankle and joints of right foot; R26.2 Difficulty in walking, not elsewhere classified; I12.0 Hypertensive chronic kidney disease with stage 5 chronic kidney disease or end stage renal disease; N18.6 End stage renal disease; F17.210 Nicotine dependence, cigarettes, uncomplicated; Z99.2 Dependence on renal dialysis; E78.5 Hyperlipidemia, unspecified; F11.20 Opioid dependence, uncomplicated; W18.39XA Other fall on same level, initial encounter; Z21 Asymptomatic human immunodeficiency virus [HIV] infection status; F41.9 Anxiety disorder, unspecified; Y93.89 Activity, other specified; Y92.89 Other specified places as the place of occurrence of the external cause; Z86.19 Personal history of other infectious and parasitic diseases
CPT/HCPCS: 0241U-QW; 36415; 73610-TC-RT-FY; 73630-TC-RT-FY; 73700-TC-RT; 80048; 80053; 83735; 84100; 85025; 85027; 86803; 87077; 87081; 87340; 87517; 87522; 93005; 93010; 96374; 97116-GP; 97162-GP; 99285-25; G0378

== ENCOUNTER 2022-10-05 23:47 | Inpatient (IN) | payer OTHER ==
[2022-10-06] MEDS ORDERED: ACETAMINOPHEN 1000 MG/100 ML BAG IVPB ONE (00:15)
[2022-10-06] MEDS ORDERED: ACETAMINOPHEN INJECTION 100 ML IVPB ONE (00:45)
[2022-10-06 01:37] LABS: BASO % 0.7 % (0-2.0); EOS % 2.6 % (0-4.5); HEMOGLOBIN 12.7 GM/dL (10.7-15.3); LYMPH % 20.5 % (8-40); MCH 30.9 pg (25.7-33.7); MCHC 31.7 g/dl (32.0-36.0); MEAN CELL VOLUME 97.7 fl (80-96); MEAN PLT VOLUME 7.5 fl (7.5-11.1); MONO % 10.3 % (3.8-10.2); NEUT % 65.9 % (42.8-82.8); PLATELET COUNT 136 10^3/uL (134-434); RDW 14.5 % (11.6-15.6); WHITE BLOOD COUNT 7.4 K/mm3 (4.0-10.0)
[2022-10-06 02:03] LABS: CHLORIDE 105 mmol/L (98-107); POTASSIUM 3.5 mmol/L (3.5-5.1); SODIUM 140 mmol/L (136-145)
[2022-10-06 02:06] LABS: ALBUMIN 3.3 g/dl (3.4-5.0); ANION GAP 9 MMOL/L (8-16); BLOOD UREA NITROGEN 28.1 mg/dL (7-18); CALCIUM 9.5 mg/dL (8.5-10.1); CO2 26 mmol/L (21-32); GLUCOSE,RANDOM 81 mg/dL (74-106)
[2022-10-06 02:10] LABS: SGOT/AST 76 U/L (15-37); SGPT/ALT 52 U/L (13-61)
[2022-10-06 02:11] LABS: ALK PHOS 121 U/L (45-117); TOT PROT 7.8 g/dl (6.4-8.2)
[2022-10-06] MEDS ORDERED: ASPIRIN 81 MG CHEWABLE TABLETS PO ONE (02:13)
[2022-10-06 02:35] LABS: BILIRUBIN,TOTAL 0.6 mg/dL (0.2-1); CREATININE 7.8 mg/dL (0.55-1.3)
[2022-10-06] MEDS ORDERED: ASPIRIN 81 MG CHEWABLE TABLETS ONE (04:02)
[2022-10-06] MEDS ORDERED: LIDOCAINE 2.5%/PRILOCAINE 2.5% (5 Gram/TUBE) TP PRN (05:21)
[2022-10-06] MEDS ORDERED: LIDOCAINE 5% TOPICAL PATCH TP PRN (05:21)
[2022-10-06] MEDS ORDERED: ACETAMINOPHEN 500 MG TABLET (FP) PO PRN (05:21)
[2022-10-06] MEDS ORDERED: oxyCODONE HCL 10 MG SUSTAINED ACTING TABLET PO PRN ×2 (05:23→12:33)
[2022-10-06 05:52] LABS: PHOSPHOROUS 2.5 mg/dL (2.5-4.9)
[2022-10-06] MEDS: HEPARIN NA (PORCINE) 5,000 UNITS/ML 1ML VIAL SQ SCH ×3 (07:45→21:03)
[2022-10-06] MEDS ORDERED: HEPARIN NA (PORCINE) 5,000 UNITS/ML 1ML VIAL ONE (07:47)
[2022-10-06] MEDS ORDERED: PATIENT'S OWN MEDICATION (NON-FORMULARY) (Dolutegravir/Rilpivirine [Juluca 50-25 Mg Tablet PO SCH (10:00)
[2022-10-06] MEDS ORDERED: SODIUM CHLORIDE 250 ML IV PRN (11:52)
[2022-10-06] MEDS ORDERED: NICOTINE 7 MG/24 HOURS TOPICAL PATCH TD ONE (12:12)
[2022-10-06] MEDS ORDERED: CITALOPRAM HYDROBROMIDE 10 MG TABLET ONE (12:12)
[2022-10-06] MEDS: NICOTINE 7 MG/24 HOURS TOPICAL PATCH TD SCH (12:15)
[2022-10-06] MEDS: CITALOPRAM HYDROBROMIDE 10 MG TABLET PO SCH (12:15)
[2022-10-06] MEDS ORDERED: methaDONE HCL 10 MG TABLET (FOR DETOX USE ONLY) PO ONE (15:15)
[2022-10-06] MEDS ORDERED: methaDONE 40 MG, methaDONE 20 MG PO ONE (15:30)
[2022-10-06] MEDS ORDERED: methaDONE 40 MG, methaDONE 30 MG PO ONE (15:30)
[2022-10-06] MEDS: RILPIVIRINE HCL 25 MG TABLET PO SCH (16:58)
[2022-10-06] MEDS: DOLUTEGRAVIR SODIUM 50 MG TABLET (NON-FORMULARY) PO SCH (16:58)
[2022-10-06] MEDS: VITAMIN B COMP W-C 1 EA TABLET (NEPHRO-VITE) PO SCH (16:58)
[2022-10-06] MEDS: DOCUSATE SODIUM 100 MG CAPSULE (FP) PO SCH (21:01)
[2022-10-06] MEDS: LIDOCAINE PATCH REMOVAL MC SCH (21:03)
[2022-10-06] MEDS: SENNOSIDES 8.8 MG/5 ML SYRUP PO SCH (21:03)
[2022-10-06] MEDS: ZOLPIDEM TARTRATE 5 MG TABLET PO PRN (21:19)
[2022-10-07] MEDS: HEPARIN NA (PORCINE) 5,000 UNITS/ML 1ML VIAL SQ SCH ×4 (06:41→21:13)
[2022-10-07] MEDS ORDERED: methaDONE HCL 10 MG TABLET (FOR DETOX USE ONLY) PO ONE (07:58)
[2022-10-07] MEDS ORDERED: methaDONE 40 MG, methaDONE 30 MG PO ONE (08:30)
[2022-10-07] MEDS: VITAMIN B COMP W-C 1 EA TABLET (NEPHRO-VITE) PO SCH (09:59)
[2022-10-07] MEDS: DOLUTEGRAVIR SODIUM 50 MG TABLET (NON-FORMULARY) PO SCH (10:00)
[2022-10-07] MEDS: RILPIVIRINE HCL 25 MG TABLET PO SCH (10:00)
[2022-10-07] MEDS: DOCUSATE SODIUM 100 MG CAPSULE (FP) PO SCH ×2 (10:01→21:09)
[2022-10-07] MEDS: LIDOCAINE 2.5%/PRILOCAINE 2.5% 30 GRAM TUBE TP SCH (12:00)
[2022-10-07] MEDS: CITALOPRAM HYDROBROMIDE 10 MG TABLET PO SCH (12:00)
[2022-10-07 13:59] LABS: HEMATOCRIT 36.3 % (32.4-45.2); HEMOGLOBIN 11.6 GM/dL (10.7-15.3); MCH 31.1 pg (25.7-33.7); MEAN CELL VOLUME 97.4 fl (80-96); MEAN PLT VOLUME 8.2 fl (7.5-11.1); PLATELET COUNT 137 10^3/uL (134-434); RBC 3.73 M/mm3 (3.60-5.2); RDW 14.5 % (11.6-15.6); WHITE BLOOD COUNT 6.5 K/mm3 (4.0-10.0)
[2022-10-07 14:27] LABS: CHLORIDE 104 mmol/L (98-107); POTASSIUM 3.8 mmol/L (3.5-5.1); SODIUM 138 mmol/L (136-145)
[2022-10-07 14:35] LABS: ALBUMIN 2.7 g/dl (3.4-5.0); ANION GAP 8 MMOL/L (8-16); BLOOD UREA NITROGEN 47.1 mg/dL (7-18); CALCIUM 9.4 mg/dL (8.5-10.1); CO2 25 mmol/L (21-32); GLUCOSE,RANDOM 95 mg/dL (74-106)
[2022-10-07 14:36] LABS: SGPT/ALT 33 U/L (13-61)
[2022-10-07 14:37] LABS: TOT PROT 6.6 g/dl (6.4-8.2)
[2022-10-07 14:38] LABS: BILIRUBIN,TOTAL 0.2 mg/dL (0.2-1); SGOT/AST 37 U/L (15-37)
[2022-10-07 14:52] LABS: ALK PHOS 90 U/L (45-117); CREATININE 10.6 mg/dL (0.55-1.3)
[2022-10-07] MEDS: NICOTINE 7 MG/24 HOURS TOPICAL PATCH TD SCH (16:07)
[2022-10-07] MEDS: SENNOSIDES 8.8 MG/5 ML SYRUP PO SCH (21:09)
[2022-10-07] MEDS: LIDOCAINE PATCH REMOVAL MC SCH (21:09)
[2022-10-07] MEDS: ZOLPIDEM TARTRATE 5 MG TABLET PO PRN (21:09)
[2022-10-08] MEDS: HEPARIN NA (PORCINE) 5,000 UNITS/ML 1ML VIAL SQ SCH ×2 (06:07→14:32)
[2022-10-08] MEDS ORDERED: methaDONE HCL 10 MG TABLET (FOR DETOX USE ONLY) PO ONE (07:27)
[2022-10-08] MEDS ORDERED: methaDONE 40 MG, methaDONE 30 MG PO ONE (08:00)
[2022-10-08] MEDS: VITAMIN B COMP W-C 1 EA TABLET (NEPHRO-VITE) PO SCH (10:57)
[2022-10-08] MEDS: DOLUTEGRAVIR SODIUM 50 MG TABLET (NON-FORMULARY) PO SCH (10:57)
[2022-10-08] MEDS: DOCUSATE SODIUM 100 MG CAPSULE (FP) PO SCH ×2 (10:57→21:02)
[2022-10-08] MEDS: CITALOPRAM HYDROBROMIDE 20 MG TABLET PO SCH (10:57)
[2022-10-08] MEDS: NICOTINE 7 MG/24 HOURS TOPICAL PATCH TD SCH (10:57)
[2022-10-08] MEDS: RILPIVIRINE HCL 25 MG TABLET PO SCH (10:57)
[2022-10-08] MEDS: LIDOCAINE 2.5%/PRILOCAINE 2.5% 30 GRAM TUBE TP SCH (10:58)
[2022-10-08] MEDS ORDERED: SODIUM CHLORIDE 250 ML IV PRN (14:49)
[2022-10-08] MEDS: ZOLPIDEM TARTRATE 5 MG TABLET PO PRN (21:02)
[2022-10-08] MEDS ORDERED: SENNOSIDES 8.6MG TABLET (FP) PO SCH (22:00)
[2022-10-09] MEDS ORDERED: methaDONE HCL 10 MG TABLET PO ONE (09:20)
[2022-10-09] MEDS: methaDONE 40 MG, methaDONE 30 MG PO SCH (09:35)
[2022-10-09] MEDS: NICOTINE 7 MG/24 HOURS TOPICAL PATCH TD SCH (09:44)
[2022-10-09] MEDS: LIDOCAINE PATCH REMOVAL MC SCH ×2 (09:51→21:33)
[2022-10-09] MEDS: DOLUTEGRAVIR SODIUM 50 MG TABLET (NON-FORMULARY) PO SCH (10:52)
[2022-10-09] MEDS: VITAMIN B COMP W-C 1 EA TABLET (NEPHRO-VITE) PO SCH (10:52)
[2022-10-09] MEDS: LIDOCAINE 2.5%/PRILOCAINE 2.5% 30 GRAM TUBE TP SCH (10:52)
[2022-10-09] MEDS: CITALOPRAM HYDROBROMIDE 20 MG TABLET PO SCH (10:52)
[2022-10-09] MEDS: DOCUSATE SODIUM 100 MG CAPSULE (FP) PO SCH (10:52)
[2022-10-09] MEDS: RILPIVIRINE HCL 25 MG TABLET PO SCH (10:52)
[2022-10-09] MEDS ORDERED: SODIUM CHLORIDE 250 ML IV PRN (15:44)
[2022-10-09 16:04] LABS: HEMATOCRIT 36.8 % (32.4-45.2); HEMOGLOBIN 11.8 GM/dL (10.7-15.3); MCH 31.3 pg (25.7-33.7); MCHC 32.1 g/dl (32.0-36.0); MEAN CELL VOLUME 97.5 fl (80-96); MEAN PLT VOLUME 7.8 fl (7.5-11.1); PLATELET COUNT 151 10^3/uL (134-434); RBC 3.78 M/mm3 (3.60-5.2); RDW 14.6 % (11.6-15.6); WHITE BLOOD COUNT 6.8 K/mm3 (4.0-10.0)
[2022-10-09 16:26] LABS: CHLORIDE 101 mmol/L (98-107); POTASSIUM 3.8 mmol/L (3.5-5.1); SODIUM 137 mmol/L (136-145)
[2022-10-09 16:29] LABS: ANION GAP 7 MMOL/L (8-16); CALCIUM 9.3 mg/dL (8.5-10.1); CO2 29 mmol/L (21-32)
[2022-10-09 16:30] LABS: BLOOD UREA NITROGEN 44.3 mg/dL (7-18); GLUCOSE,RANDOM 88 mg/dL (74-106)
[2022-10-09 16:37] LABS: CREATININE 10.6 mg/dL (0.55-1.3)
[2022-10-09] MEDS: HEPARIN NA (PORCINE) 5,000 UNITS/ML 1ML VIAL SQ SCH ×2 (21:09→22:50)
[2022-10-09] MEDS: SENNOSIDES 8.6MG TABLET (FP) PO SCH (21:09)
[2022-10-09] MEDS: ACETAMINOPHEN 500 MG TABLET (FP) PO PRN (21:10)
[2022-10-09] MEDS: ZOLPIDEM TARTRATE 5 MG TABLET PO PRN (21:11)
[2022-10-10] MEDS ORDERED: methaDONE HCL 10 MG TABLET PO SCH (06:00)
[2022-10-10] MEDS: methaDONE 40 MG, methaDONE 30 MG PO SCH (06:01)
[2022-10-10] MEDS: HEPARIN NA (PORCINE) 5,000 UNITS/ML 1ML VIAL SQ SCH ×4 (06:01→21:48)
[2022-10-10] MEDS: NICOTINE 7 MG/24 HOURS TOPICAL PATCH TD SCH (10:23)
[2022-10-10] MEDS: SENNOSIDES 8.6MG TABLET (FP) PO SCH ×2 (10:23→21:49)
[2022-10-10] MEDS: CITALOPRAM HYDROBROMIDE 20 MG TABLET PO SCH (10:23)
[2022-10-10] MEDS: VITAMIN B COMP W-C 1 EA TABLET (NEPHRO-VITE) PO SCH (10:24)
[2022-10-10] MEDS: DOLUTEGRAVIR SODIUM 50 MG TABLET (NON-FORMULARY) PO SCH (10:24)
[2022-10-10] MEDS: RILPIVIRINE HCL 25 MG TABLET PO SCH (10:25)
[2022-10-10 11:08] LABS: HEMATOCRIT 37.4 % (32.4-45.2); MCH 31.3 pg (25.7-33.7); MCHC 32.1 g/dl (32.0-36.0); MEAN CELL VOLUME 97.6 fl (80-96); MEAN PLT VOLUME 8.1 fl (7.5-11.1); PLATELET COUNT 163 10^3/uL (134-434); RBC 3.84 M/mm3 (3.60-5.2); RDW 14.8 % (11.6-15.6); WHITE BLOOD COUNT 6.5 K/mm3 (4.0-10.0)
[2022-10-10 11:21] LABS: CHLORIDE 100 mmol/L (98-107); POTASSIUM 3.6 mmol/L (3.5-5.1); SODIUM 139 mmol/L (136-145)
[2022-10-10 11:22] LABS: CALCIUM 9.3 mg/dL (8.5-10.1)
[2022-10-10 11:23] LABS: ANION GAP 8 MMOL/L (8-16); BLOOD UREA NITROGEN 28.7 mg/dL (7-18); CO2 31 mmol/L (21-32); GLUCOSE,RANDOM 139 mg/dL (74-106)
[2022-10-10 11:29] LABS: CREATININE 7.5 mg/dL (0.55-1.3)
[2022-10-10] MEDS: LIDOCAINE 2.5%/PRILOCAINE 2.5% (5 Gram/TUBE) TP PRN (15:07)
[2022-10-10] MEDS: LIDOCAINE 2.5%/PRILOCAINE 2.5% 30 GRAM TUBE TP SCH (15:08)
[2022-10-10] MEDS: LIDOCAINE PATCH REMOVAL MC SCH (21:48)
[2022-10-10] MEDS: ZOLPIDEM TARTRATE 5 MG TABLET PO PRN (21:50)
[2022-10-11] MEDS: HEPARIN NA (PORCINE) 5,000 UNITS/ML 1ML VIAL SQ SCH ×4 (05:50→21:42)
[2022-10-11] MEDS: methaDONE 40 MG, methaDONE 30 MG PO SCH (05:51)
[2022-10-11] MEDS: VITAMIN B COMP W-C 1 EA TABLET (NEPHRO-VITE) PO SCH (09:37)
[2022-10-11] MEDS: SENNOSIDES 8.6MG TABLET (FP) PO SCH ×2 (09:37→21:41)
[2022-10-11] MEDS: NICOTINE 7 MG/24 HOURS TOPICAL PATCH TD SCH (09:38)
[2022-10-11] MEDS: RILPIVIRINE HCL 25 MG TABLET PO SCH (09:38)
[2022-10-11] MEDS: DOLUTEGRAVIR SODIUM 50 MG TABLET (NON-FORMULARY) PO SCH (09:38)
[2022-10-11] MEDS: CITALOPRAM HYDROBROMIDE 20 MG TABLET PO SCH (09:38)
[2022-10-11] MEDS: LIDOCAINE 2.5%/PRILOCAINE 2.5% (5 Gram/TUBE) TP PRN (09:38)
[2022-10-11] MEDS ORDERED: ATORVASTATIN CA 80 MG TABLET (FP) PO ONE (12:45)
[2022-10-11] MEDS: LIDOCAINE 2.5%/PRILOCAINE 2.5% 30 GRAM TUBE TP SCH (12:56)
[2022-10-11] MEDS ORDERED: DEXAMETHASONE SOD PHOSPHATE 10 MG/1 ML VIAL IVPB ONE (17:09)
[2022-10-11] MEDS: ZOLPIDEM TARTRATE 5 MG TABLET PO PRN (21:41)
[2022-10-11] MEDS: LIDOCAINE PATCH REMOVAL MC SCH (21:42)
[2022-10-12] MEDS: methaDONE 40 MG, methaDONE 30 MG PO SCH (06:43)
[2022-10-12] MEDS: DEXAMETHASONE 4 MG TABLET (FP) PO SCH ×4 (06:47→23:00)
[2022-10-12] MEDS: HEPARIN NA (PORCINE) 5,000 UNITS/ML 1ML VIAL SQ SCH ×4 (06:48→22:52)
[2022-10-12] MEDS: LIDOCAINE 2.5%/PRILOCAINE 2.5% 30 GRAM TUBE TP SCH (07:30)
[2022-10-12] MEDS ORDERED: SODIUM CHLORIDE 250 ML IV PRN (07:57)
[2022-10-12] MEDS: VITAMIN B COMP W-C 1 EA TABLET (NEPHRO-VITE) PO SCH (13:38)
[2022-10-12] MEDS: CITALOPRAM HYDROBROMIDE 20 MG TABLET PO SCH (13:38)
[2022-10-12] MEDS: SENNOSIDES 8.6MG TABLET (FP) PO SCH ×2 (13:38→22:54)
[2022-10-12] MEDS: DOLUTEGRAVIR SODIUM 50 MG TABLET (NON-FORMULARY) PO SCH (13:40)
[2022-10-12] MEDS: NICOTINE 7 MG/24 HOURS TOPICAL PATCH TD SCH (13:41)
[2022-10-12] MEDS: RILPIVIRINE HCL 25 MG TABLET PO SCH (13:41)
[2022-10-12] MEDS ORDERED: LORazepam 2 MG/ML SDV VIAL IVPB ONE (20:45)
[2022-10-12] MEDS: ATORVASTATIN CA 80 MG TABLET (FP) PO SCH (22:53)
[2022-10-12] MEDS: LIDOCAINE PATCH REMOVAL MC SCH (22:55)
[2022-10-12] MEDS: ZOLPIDEM TARTRATE 5 MG TABLET PO PRN (22:58)
[2022-10-13] MEDS: methaDONE 40 MG, methaDONE 30 MG PO SCH (06:42)
[2022-10-13] MEDS: DEXAMETHASONE 4 MG TABLET (FP) PO SCH ×4 (06:44→23:47)
[2022-10-13] MEDS: HEPARIN NA (PORCINE) 5,000 UNITS/ML 1ML VIAL SQ SCH ×4 (06:45→22:04)
[2022-10-13] MEDS: NICOTINE 7 MG/24 HOURS TOPICAL PATCH TD SCH (10:05)
[2022-10-13] MEDS: RILPIVIRINE HCL 25 MG TABLET PO SCH (10:05)
[2022-10-13] MEDS: CITALOPRAM HYDROBROMIDE 20 MG TABLET PO SCH (10:05)
[2022-10-13] MEDS: DOLUTEGRAVIR SODIUM 50 MG TABLET (NON-FORMULARY) PO SCH (10:05)
[2022-10-13] MEDS: VITAMIN B COMP W-C 1 EA TABLET (NEPHRO-VITE) PO SCH (10:05)
[2022-10-13] MEDS: LIDOCAINE 2.5%/PRILOCAINE 2.5% 30 GRAM TUBE TP SCH (10:06)
[2022-10-13 10:53] LABS: CHLORIDE 96 mmol/L (98-107); POTASSIUM 4.3 mmol/L (3.5-5.1); SODIUM 135 mmol/L (136-145)
[2022-10-13 10:54] LABS: CALCIUM 8.6 mg/dL (8.5-10.1)
[2022-10-13 10:55] LABS: ANION GAP 11 MMOL/L (8-16); BLOOD UREA NITROGEN 47.2 mg/dL (7-18); CO2 29 mmol/L (21-32); GLUCOSE,RANDOM 112 mg/dL (74-106); MAGNESIUM 2.2 mg/dL (1.8-2.4)
[2022-10-13 10:58] LABS: PHOSPHOROUS 6.4 mg/dL (2.5-4.9)
[2022-10-13 11:06] LABS: CREATININE 8.2 mg/dL (0.55-1.3)
[2022-10-13] MEDS ORDERED: LORazepam 2 MG/ML SDV VIAL IVPUSH ONE (11:15)
[2022-10-13] MEDS ORDERED: SODIUM CHLORIDE 250 ML IV PRN (13:40)
[2022-10-13 14:14] VITALS: BMI 23.2
[2022-10-13] MEDS: ZOLPIDEM TARTRATE 5 MG TABLET PO PRN (22:04)
[2022-10-13] MEDS: ATORVASTATIN CA 80 MG TABLET (FP) PO SCH (22:04)
[2022-10-13] MEDS: LIDOCAINE PATCH REMOVAL MC SCH (22:05)
[2022-10-14] MEDS: DEXAMETHASONE 4 MG TABLET (FP) PO SCH ×4 (06:06→23:11)
[2022-10-14] MEDS: methaDONE 40 MG, methaDONE 30 MG PO SCH (06:06)
[2022-10-14] MEDS: HEPARIN NA (PORCINE) 5,000 UNITS/ML 1ML VIAL SQ SCH ×3 (06:08→22:09)
[2022-10-14 09:52] LABS: HEMATOCRIT 38.8 % (32.4-45.2); HEMOGLOBIN 12.5 GM/dL (10.7-15.3); MCH 30.9 pg (25.7-33.7); MCHC 32.2 g/dl (32.0-36.0); MEAN CELL VOLUME 96.2 fl (80-96); MEAN PLT VOLUME 8.1 fl (7.5-11.1); PLATELET COUNT 144 10^3/uL (134-434); RBC 4.04 M/mm3 (3.60-5.2); RDW 14.3 % (11.6-15.6)
[2022-10-14 10:06] LABS: CHLORIDE 95 mmol/L (98-107); POTASSIUM 4.1 mmol/L (3.5-5.1); SODIUM 134 mmol/L (136-145)
[2022-10-14 10:08] LABS: BLOOD UREA NITROGEN 68.4 mg/dL (7-18); GLUCOSE,RANDOM 135 mg/dL (74-106)
[2022-10-14 10:09] LABS: ALBUMIN 2.9 g/dl (3.4-5.0); ANION GAP 11 MMOL/L (8-16); CALCIUM 8.5 mg/dL (8.5-10.1); CO2 28 mmol/L (21-32)
[2022-10-14] MEDS ORDERED: LORazepam 2 MG/ML SDV VIAL IVPUSH SCH (10:10)
[2022-10-14 10:12] LABS: SGPT/ALT 26 U/L (13-61)
[2022-10-14 10:13] LABS: SGOT/AST 25 U/L (15-37)
[2022-10-14 10:14] LABS: BILIRUBIN,TOTAL 0.4 mg/dL (0.2-1); TOT PROT 7.3 g/dl (6.4-8.2)
[2022-10-14 10:15] LABS: ALK PHOS 90 U/L (45-117)
[2022-10-14] MEDS: LIDOCAINE 2.5%/PRILOCAINE 2.5% 30 GRAM TUBE TP SCH (12:41)
[2022-10-14] MEDS: CITALOPRAM HYDROBROMIDE 20 MG TABLET PO SCH (12:45)
[2022-10-14] MEDS: DOLUTEGRAVIR SODIUM 50 MG TABLET (NON-FORMULARY) PO SCH (12:46)
[2022-10-14] MEDS: VITAMIN B COMP W-C 1 EA TABLET (NEPHRO-VITE) PO SCH (12:46)
[2022-10-14] MEDS: RILPIVIRINE HCL 25 MG TABLET PO SCH (12:46)
[2022-10-14] MEDS: NICOTINE 7 MG/24 HOURS TOPICAL PATCH TD SCH (12:46)
[2022-10-14] MEDS: LIDOCAINE 5% TOPICAL PATCH TP PRN (18:03)
[2022-10-14] MEDS: LIDOCAINE PATCH REMOVAL MC SCH (22:10)
[2022-10-14] MEDS: ATORVASTATIN CA 80 MG TABLET (FP) PO SCH (22:10)
[2022-10-14] MEDS: ACETAMINOPHEN 500 MG TABLET (FP) PO PRN (22:10)
[2022-10-15] MEDS: HEPARIN NA (PORCINE) 5,000 UNITS/ML 1ML VIAL SQ SCH ×3 (05:21→21:26)
[2022-10-15] MEDS: methaDONE 40 MG, methaDONE 30 MG PO SCH (05:22)
[2022-10-15] MEDS: DEXAMETHASONE 4 MG TABLET (FP) PO SCH ×4 (05:22→23:27)
[2022-10-15 09:38] LABS: POTASSIUM 3.9 mmol/L (3.5-5.1)
[2022-10-15 09:42] LABS: BLOOD UREA NITROGEN 44.2 mg/dL (7-18); CALCIUM 8.7 mg/dL (8.5-10.1); MAGNESIUM 2.2 mg/dL (1.8-2.4)
[2022-10-15 09:46] LABS: CREATININE 6.9 mg/dL (0.55-1.3); PHOSPHOROUS 5.6 mg/dL (2.5-4.9)
[2022-10-15] MEDS: CITALOPRAM HYDROBROMIDE 20 MG TABLET PO SCH (10:47)
[2022-10-15] MEDS: VITAMIN B COMP W-C 1 EA TABLET (NEPHRO-VITE) PO SCH (10:47)
[2022-10-15] MEDS: NICOTINE 7 MG/24 HOURS TOPICAL PATCH TD SCH (10:47)
[2022-10-15] MEDS: RILPIVIRINE HCL 25 MG TABLET PO SCH (10:48)
[2022-10-15] MEDS: DOLUTEGRAVIR SODIUM 50 MG TABLET (NON-FORMULARY) PO SCH (10:48)
[2022-10-15] MEDS: LIDOCAINE 2.5%/PRILOCAINE 2.5% 30 GRAM TUBE TP SCH (10:57)
[2022-10-15] MEDS ORDERED: SODIUM CHLORIDE 250 ML IV PRN (16:09)
[2022-10-15] MEDS: ATORVASTATIN CA 80 MG TABLET (FP) PO SCH (21:26)
[2022-10-15] MEDS: ZOLPIDEM TARTRATE 5 MG TABLET PO PRN (21:26)
[2022-10-15] MEDS: LIDOCAINE PATCH REMOVAL MC SCH (21:27)
[2022-10-16] MEDS: DEXAMETHASONE 4 MG TABLET (FP) PO SCH ×4 (05:40→22:26)
[2022-10-16] MEDS: methaDONE 40 MG, methaDONE 30 MG PO SCH (05:40)
[2022-10-16] MEDS: HEPARIN NA (PORCINE) 5,000 UNITS/ML 1ML VIAL SQ SCH ×3 (05:44→22:20)
[2022-10-16] MEDS: LIDOCAINE 2.5%/PRILOCAINE 2.5% 30 GRAM TUBE TP SCH (07:45)
[2022-10-16] MEDS: VITAMIN B COMP W-C 1 EA TABLET (NEPHRO-VITE) PO SCH (12:42)
[2022-10-16] MEDS: NICOTINE 7 MG/24 HOURS TOPICAL PATCH TD SCH (12:43)
[2022-10-16] MEDS: RILPIVIRINE HCL 25 MG TABLET PO SCH (12:43)
[2022-10-16] MEDS: DOLUTEGRAVIR SODIUM 50 MG TABLET (NON-FORMULARY) PO SCH (12:43)
[2022-10-16] MEDS: CITALOPRAM HYDROBROMIDE 20 MG TABLET PO SCH (12:48)
[2022-10-16] MEDS: clonazePAM 0.5 MG TABLET PO SCH (13:43)
[2022-10-16 18:17] LABS: POTASSIUM 3.4 mmol/L (3.5-5.1)
[2022-10-16 18:20] LABS: BLOOD UREA NITROGEN 33.5 mg/dL (7-18); CALCIUM 8.9 mg/dL (8.5-10.1); MAGNESIUM 2.2 mg/dL (1.8-2.4)
[2022-10-16 18:23] LABS: PHOSPHOROUS 4.7 mg/dL (2.5-4.9)
[2022-10-16 18:24] LABS: CREATININE 5.5 mg/dL (0.55-1.3)
[2022-10-16] MEDS: ZOLPIDEM TARTRATE 5 MG TABLET PO PRN (22:19)
[2022-10-16] MEDS: ATORVASTATIN CA 80 MG TABLET (FP) PO SCH (22:19)
[2022-10-16] MEDS: LIDOCAINE PATCH REMOVAL MC SCH (22:20)
[2022-10-17] MEDS: DEXAMETHASONE 4 MG TABLET (FP) PO SCH ×4 (00:20→17:53)
[2022-10-17] MEDS: methaDONE 40 MG, methaDONE 30 MG PO SCH (06:40)
[2022-10-17] MEDS: HEPARIN NA (PORCINE) 5,000 UNITS/ML 1ML VIAL SQ SCH ×4 (06:41→23:10)
[2022-10-17 09:12] LABS: POTASSIUM 3.7 mmol/L (3.5-5.1)
[2022-10-17] MEDS: DOLUTEGRAVIR SODIUM 50 MG TABLET (NON-FORMULARY) PO SCH (09:12)
[2022-10-17] MEDS: clonazePAM 0.5 MG TABLET PO SCH (09:12)
[2022-10-17] MEDS: NICOTINE 7 MG/24 HOURS TOPICAL PATCH TD SCH (09:13)
[2022-10-17] MEDS: RILPIVIRINE HCL 25 MG TABLET PO SCH (09:13)
[2022-10-17] MEDS: LIDOCAINE 2.5%/PRILOCAINE 2.5% 30 GRAM TUBE TP SCH (09:13)
[2022-10-17] MEDS: VITAMIN B COMP W-C 1 EA TABLET (NEPHRO-VITE) PO SCH (09:14)
[2022-10-17] MEDS: CITALOPRAM HYDROBROMIDE 20 MG TABLET PO SCH (09:15)
[2022-10-17 09:16] LABS: BLOOD UREA NITROGEN 51.3 mg/dL (7-18); CALCIUM 9.4 mg/dL (8.5-10.1); MAGNESIUM 2.2 mg/dL (1.8-2.4)
[2022-10-17 09:19] LABS: CREATININE 6.9 mg/dL (0.55-1.3); PHOSPHOROUS 5.5 mg/dL (2.5-4.9)
[2022-10-17] MEDS: LIDOCAINE 5% TOPICAL PATCH TP PRN (17:53)
[2022-10-17] MEDS: ZOLPIDEM TARTRATE 5 MG TABLET PO PRN (21:23)
[2022-10-17] MEDS: ACETAMINOPHEN 500 MG TABLET (FP) PO PRN (21:23)
[2022-10-17] MEDS: ATORVASTATIN CA 80 MG TABLET (FP) PO SCH (21:23)
[2022-10-18] MEDS: DEXAMETHASONE 4 MG TABLET (FP) PO SCH ×4 (00:14→19:22)
[2022-10-18] MEDS: methaDONE 40 MG, methaDONE 30 MG PO SCH (06:07)
[2022-10-18] MEDS: HEPARIN NA (PORCINE) 5,000 UNITS/ML 1ML VIAL SQ SCH ×3 (06:08→21:38)
[2022-10-18] MEDS: LIDOCAINE 5% TOPICAL PATCH TP PRN (06:18)
[2022-10-18] MEDS: LIDOCAINE PATCH REMOVAL MC SCH ×2 (07:46→21:38)
[2022-10-18] MEDS: clonazePAM 0.5 MG TABLET PO SCH (09:42)
[2022-10-18] MEDS: VITAMIN B COMP W-C 1 EA TABLET (NEPHRO-VITE) PO SCH (09:43)
[2022-10-18] MEDS: NICOTINE 7 MG/24 HOURS TOPICAL PATCH TD SCH (09:43)
[2022-10-18] MEDS: CITALOPRAM HYDROBROMIDE 20 MG TABLET PO SCH ×2 (09:43→13:06)
[2022-10-18] MEDS: ACETAMINOPHEN 500 MG TABLET (FP) PO PRN ×2 (09:43→20:19)
[2022-10-18] MEDS: DOLUTEGRAVIR SODIUM 50 MG TABLET (NON-FORMULARY) PO SCH (09:52)
[2022-10-18] MEDS: RILPIVIRINE HCL 25 MG TABLET PO SCH (09:52)
[2022-10-18] MEDS: LIDOCAINE 2.5%/PRILOCAINE 2.5% 30 GRAM TUBE TP SCH (13:06)
[2022-10-18] MEDS ORDERED: SODIUM CHLORIDE 250 ML IV PRN (19:51)
[2022-10-18] MEDS: ZOLPIDEM TARTRATE 5 MG TABLET PO PRN (21:37)
[2022-10-18] MEDS: ATORVASTATIN CA 80 MG TABLET (FP) PO SCH (21:38)
[2022-10-19] MEDS: DEXAMETHASONE 4 MG TABLET (FP) PO SCH ×4 (00:14→18:52)
[2022-10-19] MEDS: HEPARIN NA (PORCINE) 5,000 UNITS/ML 1ML VIAL SQ SCH ×3 (06:14→21:55)
[2022-10-19] MEDS: methaDONE 40 MG, methaDONE 30 MG PO SCH (06:15)
[2022-10-19] MEDS: ACETAMINOPHEN 500 MG TABLET (FP) PO PRN ×2 (06:16→18:52)
[2022-10-19] MEDS: LIDOCAINE 5% TOPICAL PATCH TP PRN (07:08)
[2022-10-19] MEDS: LIDOCAINE 2.5%/PRILOCAINE 2.5% 30 GRAM TUBE TP SCH ×2 (08:50→11:16)
[2022-10-19] MEDS ORDERED: SULFAMETHOXAZOLE/TRIMETHOPRIM 800MG/160MG D.S. TABLET PO SCH (10:00)
[2022-10-19] MEDS: clonazePAM 0.5 MG TABLET PO SCH (10:14)
[2022-10-19 10:17] LABS: BASO % 0.1 % (0-2.0); EOS % 0.2 % (0-4.5); HEMATOCRIT 37.4 % (32.4-45.2); HEMOGLOBIN 12.6 GM/dL (10.7-15.3); LYMPH % 10.3 % (8-40); MCH 31.8 pg (25.7-33.7); MCHC 33.6 g/dl (32.0-36.0); MEAN CELL VOLUME 94.6 fl (80-96); MEAN PLT VOLUME 7.8 fl (7.5-11.1); MONO % 7.3 % (3.8-10.2); NEUT % 82.1 % (42.8-82.8); PLATELET COUNT 163 10^3/uL (134-434); RBC 3.95 M/mm3 (3.60-5.2); RDW 15.1 % (11.6-15.6); WHITE BLOOD COUNT 8.5 K/mm3 (4.0-10.0)
[2022-10-19 10:24] LABS: INR 1.15 (0.83-1.09); PROTHROMBIN TIME (PATIENT) 13.3 SEC (9.7-13.0)
[2022-10-19 10:27] LABS: ACTIVATED PTT 29.3 SECONDS (25.2-36.5)
[2022-10-19] MEDS ORDERED: SULFAMETHOXAZOLE/TRIMETHOPRIM 400MG/80MG S.S. TABLET PO SCH (10:30)
[2022-10-19 10:44] LABS: CHLORIDE 95 mmol/L (98-107); POTASSIUM 3.7 mmol/L (3.5-5.1); SODIUM 135 mmol/L (136-145)
[2022-10-19 10:47] LABS: ALBUMIN 2.6 g/dl (3.4-5.0); CALCIUM 8.7 mg/dL (8.5-10.1)
[2022-10-19 10:48] LABS: ANION GAP 11 MMOL/L (8-16); CO2 29 mmol/L (21-32); GLUCOSE,RANDOM 129 mg/dL (74-106)
[2022-10-19 10:50] LABS: SGPT/ALT 55 U/L (13-61)
[2022-10-19 10:51] LABS: SGOT/AST 30 U/L (15-37)
[2022-10-19 10:52] LABS: TOT PROT 6.1 g/dl (6.4-8.2)
[2022-10-19 10:53] LABS: BILIRUBIN,TOTAL 0.4 mg/dL (0.2-1)
[2022-10-19 10:54] LABS: ALK PHOS 96 U/L (45-117)
[2022-10-19 11:01] LABS: BLOOD UREA NITROGEN 100.3 mg/dL (7-18); CREATININE 10.6 mg/dL (0.55-1.3)
[2022-10-19] MEDS: VITAMIN B COMP W-C 1 EA TABLET (NEPHRO-VITE) PO SCH (14:19)
[2022-10-19] MEDS: DOLUTEGRAVIR SODIUM 50 MG TABLET (NON-FORMULARY) PO SCH (14:19)
[2022-10-19] MEDS: NICOTINE 7 MG/24 HOURS TOPICAL PATCH TD SCH (14:20)
[2022-10-19] MEDS: RILPIVIRINE HCL 25 MG TABLET PO SCH (14:20)
[2022-10-19] MEDS: CITALOPRAM HYDROBROMIDE 20 MG TABLET PO SCH (14:26)
[2022-10-19] MEDS ORDERED: clonazePAM 0.5 MG TABLET PO ONE (14:45)
[2022-10-19] MEDS: SULFAMETHOXAZOLE/TRIMETHOPRIM 400MG/80MG S.S. TABLET PO SCH (15:11)
[2022-10-19] MEDS: ATORVASTATIN CA 80 MG TABLET (FP) PO SCH (21:55)
[2022-10-19] MEDS: LIDOCAINE PATCH REMOVAL MC SCH (21:55)
[2022-10-20] MEDS: DEXAMETHASONE 4 MG TABLET (FP) PO SCH ×4 (00:18→18:05)
[2022-10-20] MEDS: methaDONE 40 MG, methaDONE 30 MG PO SCH (05:25)
[2022-10-20] MEDS: HEPARIN NA (PORCINE) 5,000 UNITS/ML 1ML VIAL SQ SCH ×3 (05:26→21:21)
[2022-10-20 09:00] LABS: HEMATOCRIT 41.1 % (32.4-45.2); HEMOGLOBIN 13.2 GM/dL (10.7-15.3); MCH 31.3 pg (25.7-33.7); MCHC 32.1 g/dl (32.0-36.0); MEAN CELL VOLUME 97.3 fl (80-96); MEAN PLT VOLUME 8.3 fl (7.5-11.1); PLATELET COUNT 167 10^3/uL (134-434); RBC 4.22 M/mm3 (3.60-5.2); WHITE BLOOD COUNT 8.4 K/mm3 (4.0-10.0)
[2022-10-20 09:14] LABS: POTASSIUM 4.4 mmol/L (3.5-5.1)
[2022-10-20 09:15] LABS: CALCIUM 8.7 mg/dL (8.5-10.1); MAGNESIUM 2.2 mg/dL (1.8-2.4)
[2022-10-20 09:19] LABS: CREATININE 7.1 mg/dL (0.55-1.3)
[2022-10-20 09:21] LABS: BLOOD UREA NITROGEN 58.6 mg/dL (7-18)
[2022-10-20] MEDS: clonazePAM 0.5 MG TABLET PO SCH (09:38)
[2022-10-20] MEDS: VITAMIN B COMP W-C 1 EA TABLET (NEPHRO-VITE) PO SCH (09:38)
[2022-10-20] MEDS: NICOTINE 7 MG/24 HOURS TOPICAL PATCH TD SCH (09:38)
[2022-10-20] MEDS: LIDOCAINE 2.5%/PRILOCAINE 2.5% 30 GRAM TUBE TP SCH (09:39)
[2022-10-20] MEDS: CITALOPRAM HYDROBROMIDE 20 MG TABLET PO SCH (09:44)
[2022-10-20] MEDS: DOLUTEGRAVIR SODIUM 50 MG TABLET (NON-FORMULARY) PO SCH (10:49)
[2022-10-20] MEDS: RILPIVIRINE HCL 25 MG TABLET PO SCH (10:49)
[2022-10-20] MEDS: SULFAMETHOXAZOLE/TRIMETHOPRIM 400MG/80MG S.S. TABLET PO SCH (11:50)
[2022-10-20] MEDS ORDERED: SODIUM CHLORIDE 250 ML IV PRN ×2 (14:29→14:32)
[2022-10-20] MEDS: ACETAMINOPHEN 500 MG TABLET (FP) PO PRN (19:59)
[2022-10-20] MEDS: ATORVASTATIN CA 80 MG TABLET (FP) PO SCH (21:21)
[2022-10-20] MEDS: ZOLPIDEM TARTRATE 5 MG TABLET PO PRN (21:21)
[2022-10-21] MEDS: DEXAMETHASONE 4 MG TABLET (FP) PO SCH ×5 (00:47→23:21)
[2022-10-21] MEDS: methaDONE 40 MG, methaDONE 30 MG PO SCH (06:11)
[2022-10-21] MEDS: HEPARIN NA (PORCINE) 5,000 UNITS/ML 1ML VIAL SQ SCH ×3 (06:12→22:15)
[2022-10-21] MEDS: LIDOCAINE PATCH REMOVAL MC SCH ×2 (08:03→23:28)
[2022-10-21] MEDS: LIDOCAINE 2.5%/PRILOCAINE 2.5% 30 GRAM TUBE TP SCH ×2 (09:45→10:45)
[2022-10-21 10:16] LABS: HEMATOCRIT 40.2 % (32.4-45.2); HEMOGLOBIN 12.8 GM/dL (10.7-15.3); MCH 31.1 pg (25.7-33.7); MCHC 31.9 g/dl (32.0-36.0); MEAN CELL VOLUME 97.6 fl (80-96); MEAN PLT VOLUME 8.3 fl (7.5-11.1); PLATELET COUNT 162 10^3/uL (134-434); RBC 4.12 M/mm3 (3.60-5.2); RDW 15.2 % (11.6-15.6); WHITE BLOOD COUNT 7.7 K/mm3 (4.0-10.0)
[2022-10-21 10:41] LABS: CHLORIDE 97 mmol/L (98-107); POTASSIUM 4.4 mmol/L (3.5-5.1); SODIUM 136 mmol/L (136-145)
[2022-10-21 10:47] LABS: CALCIUM 8.9 mg/dL (8.5-10.1)
[2022-10-21 10:48] LABS: ALBUMIN 2.8 g/dl (3.4-5.0); ANION GAP 11 MMOL/L (8-16); CO2 27 mmol/L (21-32); GLUCOSE,RANDOM 137 mg/dL (74-106)
[2022-10-21 10:51] LABS: SGOT/AST 49 U/L (15-37); SGPT/ALT 88 U/L (13-61)
[2022-10-21 10:52] LABS: BILIRUBIN,TOTAL 0.6 mg/dL (0.2-1); TOT PROT 6.2 g/dl (6.4-8.2)
[2022-10-21 10:54] LABS: ALK PHOS 122 U/L (45-117)
[2022-10-21 10:57] LABS: BLOOD UREA NITROGEN 86.8 mg/dL (7-18); CREATININE 9.3 mg/dL (0.55-1.3)
[2022-10-21 12:36] LABS: MAGNESIUM 2.2 mg/dL (1.8-2.4)
[2022-10-21 12:38] LABS: PHOSPHOROUS 4.4 mg/dL (2.5-4.9)
[2022-10-21] MEDS: VITAMIN B COMP W-C 1 EA TABLET (NEPHRO-VITE) PO SCH (13:14)
[2022-10-21] MEDS: SULFAMETHOXAZOLE/TRIMETHOPRIM 400MG/80MG S.S. TABLET PO SCH (13:14)
[2022-10-21] MEDS: DOLUTEGRAVIR SODIUM 50 MG TABLET (NON-FORMULARY) PO SCH (13:14)
[2022-10-21] MEDS: NICOTINE 7 MG/24 HOURS TOPICAL PATCH TD SCH (13:14)
[2022-10-21] MEDS: RILPIVIRINE HCL 25 MG TABLET PO SCH (13:14)
[2022-10-21] MEDS: CITALOPRAM HYDROBROMIDE 20 MG TABLET PO SCH ×2 (13:15→13:22)
[2022-10-21] MEDS: clonazePAM 0.5 MG TABLET PO SCH (13:15)
[2022-10-21] MEDS ORDERED: oxyCODONE HCL 5 MG TABLET PO ONE (19:55)
[2022-10-21] MEDS: ATORVASTATIN CA 80 MG TABLET (FP) PO SCH (22:15)
[2022-10-21] MEDS: ZOLPIDEM TARTRATE 5 MG TABLET PO PRN (23:23)
[2022-10-22] MEDS: HEPARIN NA (PORCINE) 5,000 UNITS/ML 1ML VIAL SQ SCH ×3 (05:39→22:48)
[2022-10-22] MEDS: DEXAMETHASONE 4 MG TABLET (FP) PO SCH ×2 (05:39→11:30)
[2022-10-22] MEDS: methaDONE 40 MG, methaDONE 30 MG PO SCH (05:39)
[2022-10-22] MEDS ORDERED: oxyCODONE HCL 5 MG TABLET PO PRN (06:50)
[2022-10-22 08:38] LABS: POTASSIUM 4.3 mmol/L (3.5-5.1)
[2022-10-22 08:40] LABS: CALCIUM 9.2 mg/dL (8.5-10.1)
[2022-10-22 08:41] LABS: ALBUMIN 2.8 g/dl (3.4-5.0)
[2022-10-22 08:42] LABS: BLOOD UREA NITROGEN 63.9 mg/dL (7-18); MAGNESIUM 2.1 mg/dL (1.8-2.4)
[2022-10-22 08:44] LABS: CREATININE 6.6 mg/dL (0.55-1.3)
[2022-10-22 08:45] LABS: BILIRUBIN,TOTAL 0.3 mg/dL (0.2-1)
[2022-10-22 08:46] LABS: TOT PROT 6.3 g/dl (6.4-8.2)
[2022-10-22] MEDS: oxyCODONE HCL 5 MG TABLET PO PRN ×2 (09:43→16:44)
[2022-10-22] MEDS: NICOTINE 7 MG/24 HOURS TOPICAL PATCH TD SCH (09:44)
[2022-10-22] MEDS: VITAMIN B COMP W-C 1 EA TABLET (NEPHRO-VITE) PO SCH (09:44)
[2022-10-22] MEDS: DOLUTEGRAVIR SODIUM 50 MG TABLET (NON-FORMULARY) PO SCH (09:44)
[2022-10-22] MEDS: CITALOPRAM HYDROBROMIDE 20 MG TABLET PO SCH ×2 (09:44→11:06)
[2022-10-22] MEDS: RILPIVIRINE HCL 25 MG TABLET PO SCH (09:44)
[2022-10-22] MEDS: clonazePAM 0.5 MG TABLET PO SCH (09:45)
[2022-10-22] MEDS: SULFAMETHOXAZOLE/TRIMETHOPRIM 400MG/80MG S.S. TABLET PO SCH (11:31)
[2022-10-22] MEDS ORDERED: SODIUM CHLORIDE 250 ML IV PRN (14:01)
[2022-10-22] MEDS: ATORVASTATIN CA 80 MG TABLET (FP) PO SCH (22:47)
[2022-10-22] MEDS: ZOLPIDEM TARTRATE 5 MG TABLET PO PRN (22:48)
[2022-10-22] MEDS: LIDOCAINE PATCH REMOVAL MC SCH (22:48)
[2022-10-23 03:45] VITALS: BP 149/75; PULSE 55; RESP 18; TEMP 97.9
== END 2022-10-23 00:30 | disposition short-term general hospital (02) | DRG 343 ==
LOC: JER 23:47 → JERBED 10-06 02:18 → J2W 10-06 13:10 → J5S 10-09 15:15 → J7W 10-21 19:11
PROVIDERS: ADMIT Internal Medicine
PROC: 5A1D70Z Performance of Urinary Filtration, Intermittent, Less than 6 Hours Per Day (ICD-10-PCS; 2022-10-09)
PROC: 0BBG3ZX Excision of Left Upper Lung Lobe, Percutaneous Approach, Diagnostic (ICD-10-PCS; principal; 2022-10-20)
DX: M84.58XA Pathological fracture in neoplastic disease, other specified site, initial encounter for fracture (principal); C79.51 Secondary malignant neoplasm of bone; G82.20 Paraplegia, unspecified; I12.0 Hypertensive chronic kidney disease with stage 5 chronic kidney disease or end stage renal disease; I24.8 Other forms of acute ischemic heart disease; N18.6 End stage renal disease; F11.20 Opioid dependence, uncomplicated; G95.20 Unspecified cord compression; C34.90 Malignant neoplasm of unspecified part of unspecified bronchus or lung; F17.210 Nicotine dependence, cigarettes, uncomplicated; M89.9 Disorder of bone, unspecified; R29.6 Repeated falls; R64 Cachexia; Z68.23 Body mass index [BMI] 23.0-23.9, adult; B20 Human immunodeficiency virus [HIV] disease; Z99.2 Dependence on renal dialysis
CPT/HCPCS: 32408; 36415; 70450-TC; 70551-TC; 71045-TC-FY; 71250-TC; 71260-TC; 72125-TC; 72128-TC; 72146-TC; 72170-TC-FY; 74177-TC; 76641-TC-LT; 77012-TC; 77074-TC-FY; 78306-TC; 80048; 80053; 80061; 82550; 83036; 83735; 84100; 84439; 84443; 84484; 85025; 85027; 85610; 85651; 85730; 86140; 86300; 86359; 86360; 86803; 87340; 87522; 87536; 87635; 93005; 93010; 93880-TC; 93971; 97116-GP; 97162-GP; 99285-25; A9503; J1100; J1644; Q9967